=== PATIENT | female | born 1960 | race Caucasian/White ===

== ENCOUNTER 2023-01-19 18:45 | Emergency (ER) | payer BC, SELFPAY ==
[2023-01-19] VITALS (20 sets, daily range): BP systolic 153–190; BP diastolic 82–98; PULSE 72–91; RESP 16–18; TEMP 36.4; O2SAT 94–98; BMI 32.9
--- NOTE | 2023-01-19 19:37 | ED_ITS ---
HPI - General Adult General Time Seen by Provider: 19:37 <Ronny Brock MD - Last Filed: 01/19/23 19:42> Date Seen: 01/19/23 <Ronny Brock MD - Last Filed: 01/19/23 19:42> Chief complaint: Flank Pain <Ronny Brock MD - Last Filed: 01/19/23 19:42> Stated complaint: Back/Side Pain <Ronny Brock MD - Last Filed: 01/19/23 19:42> Time Seen by Provider: 01/19/23 18:47 <Ronny Brock MD - Last Filed: 01/19/23 19:42> Source: patient <Ronny Brock MD - Last Filed: 01/19/23 19:42> Mode of arrival: ambulatory <Ronny Brock MD - Last Filed: 01/19/23 19:42> Limitations: no limitations <Ronny Brock MD - Last Filed: 01/19/23 19:42> History of Present Illness HPI narrative: Patient is a 62 year white female who about 6 months ago had a stent placed and externally in her right kidney and a stone removed. Prior to that she had a left-sided stone removed percutaneously. 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 She had a cardiac workup post COVID including a stress test less than 2 years ago that was unremarkable. She has had no swelling or clotting problems in her extremities, she does report she did have some significant problems with COVID. She has not had any fever chills or weight loss. She is concerned about recurrent kidney stone as she has right flank pain it has been present for a couple of weeks on and off and also now with this weakness and she describes some shortness of breath. She was treated for asthma in the past with inhalers but she was told by the product consultant to stop that. She has had a history of pneumonia as well. She presents to the ED on recommendation of primary care physician to get a CT scan of her abdomen. <Ronny Brock MD - Last Filed: 01/19/23 19:42> Related Data Home medications: Home Medications Medication Instructions Recorded Confirmed cetirizine 10 mg tablet 10 mg PO DAILY 05/28/22 05/28/22 cholecalciferol (vitamin D3) 50 2,000 unit PO DAILY 05/28/22 05/28/22 mcg (2,000 unit) tablet estradiol 0.01% (0.1 mg/gram) 1 vaginal DAILY 05/28/22 05/28/22 vaginal cream fluconazole 100 mg tablet 100 mg PO DAILY 05/28/22 05/28/22 fluticasone propionate 50 2 intranasal .Daily as needed PRN 05/28/22 05/28/22 mcg/actuation nasal spray,suspension lorazepam 1 mg tablet 0.5 mg PO PRN 05/28/22 05/28/22 <Ronny Brock MD - Last Filed: 01/19/23 19:42> Allergies/adverse reactions: Allergies Allergy/AdvReac Type Severity Reaction Status Date / Time atorvastatin Allergy Intermediate severe Verified 05/25/22 15:44 muscle spasms celecoxib Allergy Intermediate generalized Verified 05/25/22 15:44 swelling hydrocodone Allergy Intermediate stomach Verified 05/25/22 15:44 pain latex Allergy Intermediate severe Verified 05/25/22 15:44 swelling/pain in urethra when latex catheter used morphine Allergy Intermediate redness Verified 05/25/22 15:44 along vein lisinopril Allergy Mild severe Verified 05/25/22 15:44 headaches ezetimibe Allergy Unknown Verified 05/25/22 15:44 rosuvastatin AdvReac Unknown Verified 05/25/22 15:44 <Ronny Brock MD - Last Filed: 01/19/23 19:42> Review of Systems Status of ROS: Reports: 10 or more systems reviewed and unremarkable except as noted in History and below <Ronny Brock MD - Last Filed: 01/19/23 19:42> [facility] Medical History: Medical History Encounter for screening for severe acute respiratory syndrome coronavirus 2 (SARS-CoV-2) infection History of colonic polyps History of depression Migraine headache (05/05/06) <Ronny Brock MD - Last Filed: 01/19/23 19:42> Surgical History: Surgical History History of bladder repair surgery (2008) History of section History of cholecystectomy History of colonoscopy (12/01/15) History of hysterectomy with oophorectomy (03/25/08) History of total knee replacement (06/13/09) History of vein stripping S/P total hip arthroplasty (2015) Status post laser lithotripsy of ureteral calculus <Ronny Brock MD - Last Filed: 01/19/23 19:42> Family History: Family History Father Brain cancer Paternal Grandmother Breast cancer Sister Drug abuse Other Osteoarthritis <Ronny Brock MD - Last Filed: 01/19/23 19:42> Social History: Social History Narrative: exercise daily- takes care of horses (5), rides, gardens etc, very active , [employer], 4 kids non-smoker: quit 03/2017, 28 pack years social drinker- 6/month Smoking Status: Never smoker Do you use any of these nicotine containing products: None Second hand tobacco smoke exposure: No How often do you have a drink containing alcohol: monthly or less How many standard drinks containing alcohol do you have on a typical day: 1 or 2 How often do you have six or more drinks on one occasion: Never AUDIT-C Alcohol total score: 1 Non-prescribed substance use: denies use service: No <Ronny Brock MD - Last Filed: 01/19/23 19:42> Exam Narrative: Exam Narrative: Objective: Vital signs show slightly elevated blood pressure Patient is alert orient x3, no distress, no cyanosis HEENT is unremarkable Neck is supple Chest is clear Heart rhythm regular no murmur Abdomen obese benign nontender Flank exam shows no tenderness or abnormality Extremities are no edema Neurologic nonfocal upper extremities, good peripheral perfusion noted <Ronny Brock MD - Last Filed: 01/19/23 19:42> Const: Vital Signs, click to edit/add: Vital Signs - 24 hr 01/19/23 18:52 01/19/23 19:18 01/19/23 19:18 Temperature 97.5 F L Pulse Rate Pulse Rate [Pulse Oximeter] 80 83 Respiratory Rate 16 18 Blood Pressure Blood Pressure [Ri ght Upper Arm] 190/98 H 173/94 H Pulse Oximetry 94 95 94 Oxygen Delivery Me thod Room Air Room Air 01/19/23 19:31 01/19/23 19:32 01/19/23 19:45 Temperature Pulse Rate 83 83 76 Pulse Rate [Pulse Oximeter] Respiratory Rate 16 Blood Pressure 164/93 H Blood Pressure [Ri ght Upper Arm] Pulse Oximetry 96 95 98 Oxygen Delivery Me thod Room Air 01/19/23 20:05 01/19/23 20:15 01/19/23 20:30 Temperature Pulse Rate 82 75 74 Pulse Rate [Pulse Oximeter] Respiratory Rate Blood Pressure Blood Pressure [Ri ght Upper Arm] Pulse Oximetry 96 95 97 Oxygen Delivery Me thod 01/19/23 20:32 01/19/23 20:33 01/19/23 20:57 Temperature Pulse Rate 73 72 91 Pulse Rate [Pulse Oximeter] Respiratory Rate Blood Pressure 153/82 H Blood Pressure [Ri ght Upper Arm] Pulse Oximetry 96 96 96 Oxygen Delivery Me thod 01/19/23 21:00 01/19/23 21:02 01/19/23 21:15 Temperature Pulse Rate 85 86 87 Pulse Rate [Pulse Oximeter] Respiratory Rate Blood Pressure 188/89 H Blood Pressure [Ri ght Upper Arm] Pulse Oximetry 95 96 97 Oxygen Delivery Me thod 01/19/23 21:30 01/19/23 21:32 01/19/23 21:33 Temperature Pulse Rate 81 78 81 Pulse Rate [Pulse Oximeter] Respiratory Rate Blood Pressure 168/84 H Blood Pressure [Ri ght Upper Arm] Pulse Oximetry 95 95 94 Oxygen Delivery Me thod 01/19/23 21:45 01/19/23 22:00 01/19/23 22:02 Temperature Pulse Rate 80 75 76 Pulse Rate [Pulse Oximeter] Respiratory Rate Blood Pressure 168/89 H Blood Pressure [Ri ght Upper Arm] Pulse Oximetry 97 96 95 Oxygen Delivery Me thod <Ronny Brock MD - Last Filed: 01/19/23 19:42> Vital Signs, click to edit/add: Vital Signs - 24 hr 01/19/23 18:52 01/19/23 19:18 01/19/23 19:18 Temperature 97.5 F L Pulse Rate Pulse Rate [Pulse Oximeter] 80 83 Respiratory Rate 16 18 Blood Pressure Blood Pressure [Ri ght Upper Arm] 190/98 H 173/94 H Pulse Oximetry 94 95 94 Oxygen Delivery Me thod Room Air Room Air 01/19/23 19:31 01/19/23 19:32 01/19/23 19:45 Temperature Pulse Rate 83 83 76 Pulse Rate [Pulse Oximeter] Respiratory Rate 16 Blood Pressure 164/93 H Blood Pressure [Ri ght Upper Arm] Pulse Oximetry 96 95 98 Oxygen Delivery Me thod Room Air 01/19/23 20:05 01/19/23 20:15 01/19/23 20:30 Temperature Pulse Rate 82 75 74 Pulse Rate [Pulse Oximeter] Respiratory Rate Blood Pressure Blood Pressure [Ri ght Upper Arm] Pulse Oximetry 96 95 97 Oxygen Delivery Me thod 01/19/23 20:32 01/19/23 20:33 01/19/23 20:57 Temperature Pulse Rate 73 72 91 Pulse Rate [Pulse Oximeter] Respiratory Rate Blood Pressure 153/82 H Blood Pressure [Ri ght Upper Arm] Pulse Oximetry 96 96 96 Oxygen Delivery Me thod 01/19/23 21:00 01/19/23 21:02 01/19/23 21:15 Temperature Pulse Rate 85 86 87 Pulse Rate [Pulse Oximeter] Respiratory Rate Blood Pressure 188/89 H Blood Pressure [Ri ght Upper Arm] Pulse Oximetry 95 96 97 Oxygen Delivery Me thod 01/19/23 21:30 01/19/23 21:32 01/19/23 21:33 Temperature Pulse Rate 81 78 81 Pulse Rate [Pulse Oximeter] Respiratory Rate Blood Pressure 168/84 H Blood Pressure [Ri ght Upper Arm] Pulse Oximetry 95 95 94 Oxygen Delivery Me thod 01/19/23 21:45 01/19/23 22:00 01/19/23 22:02 Temperature Pulse Rate 80 75 76 Pulse Rate [Pulse Oximeter] Respiratory Rate Blood Pressure 168/89 H Blood Pressure [Ri ght Upper Arm] Pulse Oximetry 97 96 95 Oxygen Delivery Me thod <Jarrod Hamilton MD - Last Filed: 01/19/23 23:29> Course Course Hospital Course: Second EKG and 2nd troponin are normal, her chest CT and abdominal CT not show any acute findings, I am reassured by absence of pulmonary embolism, and normal of vital signs, with exception of her elevated blood pressure which we discussed she should follow-up for. I do think she needs to follow up with her primary care provider after discussing with her she has not had a stress echo she had a pure echo done in the past. She would require a stress echo if for shortness of breath the make evaluation complete. She agrees with the small follow-up within 48-72 hours return here if increasing chest pain shortness of breath. I gave her copy of her CTs, that she can give to her urologist Dr. Yeung. <Ronny Brock MD - Last Filed: 01/19/23 19:42> Vital Signs Vital signs: Initial Vital Signs Temperature 97.5 F L 01/19/23 18:52 Temperature Source Temporal Artery Scan 01/19/23 18:52 Pulse Rate 80 01/19/23 18:52 Pulse Rhythm 01/19/23 18:52 Pulse Strength 3+ Normal 01/19/23 18:52 Respiratory Rate 16 01/19/23 18:52 Blood Pressure 190/98 H 01/19/23 18:52 Blood Pressure Mean 128 01/19/23 18:52 Blood Pressure Position Semi-Fowlers 01/19/23 18:52 Pulse Oximetry 94 01/19/23 18:52 Oxygen Delivery Method 01/19/23 18:52 Vital Signs Temperature 97.5 F L 01/19/23 18:52 Pulse Rate 80 01/19/23 18:52 Respiratory Rate 16 01/19/23 18:52 Blood Pressure 190/98 H 01/19/23 18:52 Pulse Oximetry 94 01/19/23 18:52 Oxygen Delivery Method 01/19/23 18:52 Temperature 97.5 F L 01/19/23 18:52 Pulse Rate 76 01/19/23 22:02 Respiratory Rate 16 01/19/23 19:31 Blood Pressure 168/89 H 01/19/23 22:02 Pulse Oximetry 95 01/19/23 22:02 Oxygen Delivery Method 01/19/23 19:31 <Ronny Brock MD - Last Filed: 01/19/23 19:42> Initial Vital Signs Temperature 97.5 F L 01/19/23 18:52 Temperature Source Temporal Artery Scan 01/19/23 18:52 Pulse Rate 80 01/19/23 18:52 Pulse Rhythm 01/19/23 18:52 Pulse Strength 3+ Normal 01/19/23 18:52 Respiratory Rate 16 01/19/23 18:52 Blood Pressure 190/98 H 01/19/23 18:52 Blood Pressure Mean 128 01/19/23 18:52 Blood Pressure Position Semi-Fowlers 01/19/23 18:52 Pulse Oximetry 94 01/19/23 18:52 Oxygen Delivery Method 01/19/23 18:52 Vital Signs Temperature 97.5 F L 01/19/23 18:52 Pulse Rate 80 01/19/23 18:52 Respiratory Rate 16 01/19/23 18:52 Blood Pressure 190/98 H 01/19/23 18:52 Pulse Oximetry 94 01/19/23 18:52 Oxygen Delivery Method 01/19/23 18:52 Temperature 97.5 F L 01/19/23 18:52 Pulse Rate 76 01/19/23 22:02 Respiratory Rate 16 01/19/23 19:31 Blood Pressure 168/89 H 01/19/23 22:02 Pulse Oximetry 95 01/19/23 22:02 Oxygen Delivery Method 01/19/23 19:31 <Jarrod Hamilton MD - Last Filed: 01/19/23 23:29> Medical Decision Making MDM Narrative Medical decision making narrative: Patient is a 62 year white female had a right percutaneous stone removal about 6 months ago, has had persistent discomfort in that area and today with weakness, some shortness of breath with exertion. She had a negative cardiac workup within the last 2 years by her report including a stress test. She has had hypertension that is basically untreated as she does not tolerate the medications she has been prescribed. She has had no fever chills or cough. At this point I think it be reasonable to rule out PE, rule out acute coronary syndrome, rule out intra-abdominal pathology such as recurrent stone. Will get a chest and abdominal CT scan. That she CT scan of the abdomen be without contrast. Will check laboratory studies, oral aspirin will be given as she tolerates this. IV fluid 500 mL disposition pending findings above. Would also check a COVID/influenza/RSV test. <Ronny Brock MD - Last Filed: 01/19/23 19:42> Medical Records Medical records reviewed: Yes I reviewed the patient's medical records <Jarrod Hamilton MD - Last Filed: 01/19/23 23:29> Lab Data Lab results reviewed: Yes I reviewed the patient's lab results <Jarrod Hamilton MD - Last Filed: 01/19/23 23:29> Labs: Lab Results 01/19/23 01/19/23 01/19/23 Range/Units 19:40 19:40 19:40 WBC 6.44 (4.50-11.00) K/uL RBC 4.42 (4.00-5.20) m/uL Hgb 12.5 (12.0-16.0) gm/dL Hct 37.9 (33.0-51.0) % MCV 86 (80-100) fL MCH 28 (26-34) pg MCHC 33 (32-36) gm/dL RDW Coeff of Steffi 13.5 (11.5-15.5) % Plt Count 250 (140-440) K/uL Neut % (Auto) 48.4 (42.0-72.0) % Lymph % (Auto) 38.0 (20-44) % Bennett % (Auto) 9.5 (0.0-11.0) % Eos % (Auto) 3.4 (0.0-7.0) % Baso % (Auto) 0.5 (0.0-3.0) % Neut # (Auto) 3.12 (1.7-7.0) K/uL Lymph # (Auto) 2.45 (0.90-2.90) K/uL Bennett # (Auto) 0.60 (0.00-0.90) K/UL Eos # (Auto) 0.22 (0.00-0.50) K/uL Baso # (Auto) 0.03 (0.00-0.30) K/uL Sodium 140 (135-149) mmol/L Potassium 3.4 L (3.6-5.1) mmol/L Chloride 107 (96-114) mmol/L Carbon Dioxide 29 (20-32) mmol/L BUN 21 (7-30) mg/dL Creatinine 0.7 (0.5-1.5) mg/dL Estimated Creat Clear 46.73 Estimated GFR 98 ml/min Glucose 108 (60-115) mg/dL Calcium 9.7 (8.4-10.6) mg/dL Total Bilirubin 0.4 (0.1-1.5) mg/dL Direct Bilirubin 0.1 (0.0-0.5) mg/dL AST 25 (12-35) U/L ALT 25 (4-35) U/L Alkaline Phosphatase 109 (40-150) U/L Troponin I < 0.01 L (0.01-0.04) ng/mL C-Reactive Protein 0.9 (0.5-1.0) mg/dL NT-Pro-B Natriuret Pep < 20 pg/mL Total Protein 7.0 (6.0-8.3) g/dL Albumin 4.1 (3.3-5.0) g/dL Amylase 72 (18-89) U/L Urine Color (Yellow) Urine Appearance (Clear) Urine pH (5.0-8.5) Ur Specific Burke (1.000-1.030) Urine Protein (Negative) Urine Glucose (UA) (Negative) Urine Ketones (Negative) Urine Blood (Negative) Urine Nitrite (Negative) Urine Bilirubin (Negative) Urine Urobilinogen (0.2-1.0) Ur Leukocyte Esterase (Negative) Urine RBC (0-2) Urine WBC (0-5) Ur Squamous Epith Cells (None-Few) Amorphous Sediment (None) Urine Bacteria (None) SARS-CoV-2 (PCR) Negative SARS-CoV-2 (Negative) Influenza Type A (PCR) Negative PCR FLU A (Negative) Influenza Type B (PCR) Negative PCR FLU B (Negative) RSV (PCR) Negative PCR RSV (Negative) POC Troponin I (0.01-0.04) ng/ml 01/19/23 01/19/23 01/19/23 Range/Units 19:40 20:00 21:47 WBC (4.50-11.00) K/uL RBC (4.00-5.20) m/uL Hgb (12.0-16.0) gm/dL Hct (33.0-51.0) % MCV (80-100) fL MCH (26-34) pg MCHC (32-36) gm/dL RDW Coeff of Steffi (11.5-15.5) % Plt Count (140-440) K/uL Neut % (Auto) (42.0-72.0) % Lymph % (Auto) (20-44) % Bennett % (Auto) (0.0-11.0) % Eos % (Auto) (0.0-7.0) % Baso % (Auto) (0.0-3.0) % Neut # (Auto) (1.7-7.0) K/uL Lymph # (Auto) (0.90-2.90) K/uL Bennett # (Auto) (0.00-0.90) K/UL Eos # (Auto) (0.00-0.50) K/uL Baso # (Auto) (0.00-0.30) K/uL Sodium (135-149) mmol/L Potassium (3.6-5.1) mmol/L Chloride (96-114) mmol/L Carbon Dioxide (20-32) mmol/L BUN (7-30) mg/dL Creatinine (0.5-1.5) mg/dL Estimated Creat Clear Estimated GFR ml/min Glucose (60-115) mg/dL Calcium (8.4-10.6) mg/dL Total Bilirubin (0.1-1.5) mg/dL Direct Bilirubin (0.0-0.5) mg/dL AST (12-35) U/L ALT (4-35) U/L Alkaline Phosphatase (40-150) U/L Troponin I Cancelled (0.01-0.04) ng/mL C-Reactive Protein (0.5-1.0) mg/dL NT-Pro-B Natriuret Pep pg/mL Total Protein (6.0-8.3) g/dL Albumin (3.3-5.0) g/dL Amylase (18-89) U/L Urine Color Yellow (Yellow) Urine Appearance Cloudy A (Clear) Urine pH 7.0 (5.0-8.5) Ur Specific Burke 1.020 (1.000-1.030) Urine Protein Negative (Negative) Urine Glucose (UA) Negative (Negative) Urine Ketones Negative (Negative) Urine Blood Trace-intact A (Negative) Urine Nitrite Negative (Negative) Urine Bilirubin Negative (Negative) Urine Urobilinogen 0.2 (0.2-1.0) Ur Leukocyte Esterase Trace A (Negative) Urine RBC 0-2 (0-2) Urine WBC 0-2 (0-5) Ur Squamous Epith Cells None (None-Few) Amorphous Sediment Moderate A (None) Urine Bacteria None (None) SARS-CoV-2 (PCR) (Negative) Influenza Type A (PCR) (Negative) Influenza Type B (PCR) (Negative) RSV (PCR) (Negative) POC Troponin I 0.00 L (0.01-0.04) ng/ml <Ronny Brock MD - Last Filed: 01/19/23 19:42> Lab Results 01/19/23 01/19/23 01/19/23 Range/Units 19:40 19:40 19:40 WBC 6.44 (4.50-11.00) K/uL RBC 4.42 (4.00-5.20) m/uL Hgb 12.5 (12.0-16.0) gm/dL Hct 37.9 (33.0-51.0) % MCV 86 (80-100) fL MCH 28 (26-34) pg MCHC 33 (32-36) gm/dL RDW Coeff of Steffi 13.5 (11.5-15.5) % Plt Count 250 (140-440) K/uL Neut % (Auto) 48.4 (42.0-72.0) % Lymph % (Auto) 38.0 (20-44) % Bennett % (Auto) 9.5 (0.0-11.0) % Eos % (Auto) 3.4 (0.0-7.0) % Baso % (Auto) 0.5 (0.0-3.0) % Neut # (Auto) 3.12 (1.7-7.0) K/uL Lymph # (Auto) 2.45 (0.90-2.90) K/uL Bennett # (Auto) 0.60 (0.00-0.90) K/UL Eos # (Auto) 0.22 (0.00-0.50) K/uL Baso # (Auto) 0.03 (0.00-0.30) K/uL Sodium 140 (135-149) mmol/L Potassium 3.4 L (3.6-5.1) mmol/L Chloride 107 (96-114) mmol/L Carbon Dioxide 29 (20-32) mmol/L BUN 21 (7-30) mg/dL Creatinine 0.7 (0.5-1.5) mg/dL Estimated Creat Clear 46.73 Estimated GFR 98 ml/min Glucose 108 (60-115) mg/dL Calcium 9.7 (8.4-10.6) mg/dL Total Bilirubin 0.4 (0.1-1.5) mg/dL Direct Bilirubin 0.1 (0.0-0.5) mg/dL AST 25 (12-35) U/L ALT 25 (4-35) U/L Alkaline Phosphatase 109 (40-150) U/L Troponin I < 0.01 L (0.01-0.04) ng/mL C-Reactive Protein 0.9 (0.5-1.0) mg/dL NT-Pro-B Natriuret Pep < 20 pg/mL Total Protein 7.0 (6.0-8.3) g/dL Albumin 4.1 (3.3-5.0) g/dL Amylase 72 (18-89) U/L Urine Color (Yellow) Urine Appearance (Clear) Urine pH (5.0-8.5) Ur Specific Burke (1.000-1.030) Urine Protein (Negative) Urine Glucose (UA) (Negative) Urine Ketones (Negative) Urine Blood (Negative) Urine Nitrite (Negative) Urine Bilirubin (Negative) Urine Urobilinogen (0.2-1.0) Ur Leukocyte Esterase (Negative) Urine RBC (0-2) Urine WBC (0-5) Ur Squamous Epith Cells (None-Few) Amorphous Sediment (None) Urine Bacteria (None) SARS-CoV-2 (PCR) Negative SARS-CoV-2 (Negative) Influenza Type A (PCR) Negative PCR FLU A (Negative) Influenza Type B (PCR) Negative PCR FLU B (Negative) RSV (PCR) Negative PCR RSV (Negative) POC Troponin I (0.01-0.04) ng/ml 01/19/23 01/19/23 01/19/23 Range/Units 19:40 20:00 21:47 WBC (4.50-11.00) K/uL RBC (4.00-5.20) m/uL Hgb (12.0-16.0) gm/dL Hct (33.0-51.0) % MCV (80-100) fL MCH (26-34) pg MCHC (32-36) gm/dL RDW Coeff of Steffi (11.5-15.5) % Plt Count (140-440) K/uL Neut % (Auto) (42.0-72.0) % Lymph % (Auto) (20-44) % Bennett % (Auto) (0.0-11.0) % Eos % (Auto) (0.0-7.0) % Baso % (Auto) (0.0-3.0) % Neut # (Auto) (1.7-7.0) K/uL Lymph # (Auto) (0.90-2.90) K/uL Bennett # (Auto) (0.00-0.90) K/UL Eos # (Auto) (0.00-0.50) K/uL Baso # (Auto) (0.00-0.30) K/uL Sodium (135-149) mmol/L Potassium (3.6-5.1) mmol/L Chloride (96-114) mmol/L Carbon Dioxide (20-32) mmol/L BUN (7-30) mg/dL Creatinine (0.5-1.5) mg/dL Estimated Creat Clear Estimated GFR ml/min Glucose (60-115) mg/dL Calcium (8.4-10.6) mg/dL Total Bilirubin (0.1-1.5) mg/dL Direct Bilirubin (0.0-0.5) mg/dL AST (12-35) U/L ALT (4-35) U/L Alkaline Phosphatase (40-150) U/L Troponin I Cancelled (0.01-0.04) ng/mL C-Reactive Protein (0.5-1.0) mg/dL NT-Pro-B Natriuret Pep pg/mL Total Protein (6.0-8.3) g/dL Albumin (3.3-5.0) g/dL Amylase (18-89) U/L Urine Color Yellow (Yellow) Urine Appearance Cloudy A (Clear) Urine pH 7.0 (5.0-8.5) Ur Specific Burke 1.020 (1.000-1.030) Urine Protein Negative (Negative) Urine Glucose (UA) Negative (Negative) Urine Ketones Negative (Negative) Urine Blood Trace-intact A (Negative) Urine Nitrite Negative (Negative) Urine Bilirubin Negative (Negative) Urine Urobilinogen 0.2 (0.2-1.0) Ur Leukocyte Esterase Trace A (Negative) Urine RBC 0-2 (0-2) Urine WBC 0-2 (0-5) Ur Squamous Epith Cells None (None-Few) Amorphous Sediment Moderate A (None) Urine Bacteria None (None) SARS-CoV-2 (PCR) (Negative) Influenza Type A (PCR) (Negative) Influenza Type B (PCR) (Negative) RSV (PCR) (Negative) POC Troponin I 0.00 L (0.01-0.04) ng/ml <Jarrod Hamilton MD - Last Filed: 01/19/23 23:29> Imaging Data CT scan - abdomen: Radiologist's impression: atient: MICA MULLINSMARTYDARRYL Facility:?[facility] Patient ID:?[id number] Site Patient ID:?[id number]. Site :?[id number] Study:?CT Chest W/95CC [id number] PE PROTOCOL-01/19/2023 9:05:45 PM Ordering Physician:Samanta Jefferson Final Report: INDICATION: Shortness of breath TECHNIQUE: CT chest pulmonary PE protocol acquired with 95 cc Isovue 370 IV contrast. COMPARISON: None FINDINGS: Cardiovascular structures: Normal vascular enhancement of the pulmonary arteries, no sign of pulmonary embolism. Heart size is normal. No sign of aneurysm in the thoracic aorta. Mediastinum and micki: No mass or adenopathy. Lungs: Linear atelectasis or scarring in the lingula, right middle lobe, and left lower lobe. Pleura and pericardium: No effusions. Chest wall and axilla: No mass or adenopathy. Upper abdomen: Unremarkable. Bones: No significant findings. IMPRESSION: Pulmonary embolism, pneumonia, or acute intrathoracic abnormality. Please note that all CT scans at this facility use dose modulation, iterative reconstruction, and/or weight-based dosing when appropriate to reduce radiation dose to as low as reasonably achievable. Dictated by Mabel Galindo MD @ 01/19/2023 9:35:12 PM (Electronic Signature) Patient: MICA MULLINSJOHANA Facility:?[facility] Patient ID:?[id number] Site Patient ID:?[id number]. Site :?[id number] Study:?CT Abdomen/Pelvis W/O-01/19/2023 9:04:10 PM Ordering Physician:Samanta Jefferson Final Report: INDICATION: Kidney stones. TECHNIQUE: CT abdomen and pelvis without contrast. COMPARISON: None. FINDINGS: Limited evaluation of the intra-abdominal solid organs without IV contrast. Lower chest: Unremarkable. Liver: Normal in size and attenuation. No suspicious masses. Gallbladder and bile ducts: Gallbladder is absent. No intra or extrahepatic biliary ductal dilatation. Pancreas: Unremarkable. No mass or inflammation. Spleen: Normal in size. No masses. Adrenal glands: Normal in size. No nodules. Kidneys: Normal in size. No suspicious masses, stones, or hydronephrosis. GI tract: Unremarkable. Normal in caliber. No sign of mass or inflammation. Normal appendix. Vasculature: Abdominal aorta is normal in caliber. Lymph nodes: No lymphadenopathy. Peritoneum/Abdominal Wall: Unremarkable. No sign of mass or infiltration. No free air or significant free fluid. Pelvis: Streak artifact from arthroplasties limits evaluation in the pelvis. Probable prior hysterectomy. Bones: Bilateral total hip arthroplasty changes. IMPRESSION: No renal stones identified. Status post cholecystectomy. Please note that all CT scans at this facility use dose modulation, iterative reconstruction, and/or weight-based dosing when appropriate to reduce radiation dose to as low as reasonably achievable. Dictated by Selam Rogers MD @ 01/19/2023 9:32:04 PM (Electronic Signature) <Jarrod Hamilton MD - Last Filed: 01/19/23 23:29> ECG Data Attestation: I personally reviewed and interpreted this ECG as follows: <Jarrod Hamilton MD - Last Filed: 01/19/23 23:29> Interpretation: EKGs and show normal sinus rhythm, with an incomplete right bundle-branch block no acute ST wave changes, when compared to previous CKD as reviewed by Dr. Brock there is no appreciable change. <Jarrod Hamilton MD - Last Filed: 01/19/23 23:29> Discharge Plan Discharge Clinical Impression: Chronic right flank pain, Weakness, Shortness of breath <Ronny Brock MD - Last Filed: 01/19/23 19:42> Patient Disposition: Home w/ Parent or Adult <Ronny Brock MD - Last Filed: 01/19/23 19:42> Condition: Improved <Ronny Brock MD - Last Filed: 01/19/23 19:42> Instructions: Flank Pain (ED), Shortness of Breath (ED) <Ronny Brock MD - Last Filed: 01/19/23 19:42> Additional Instructions: Rest, light activity, aspirin daily, follow up with primary care in the next 2-3 days. Return to ED sooner problems or concerns. Recommend repeat talking about blood pressure control with her primary care doctor common finding a medication that would be more tolerant to you. Also recommend outpatient stress test, to further assess this shortness of breath. Return here if increasing shortness of breath chest pain or other issues. <Ronny Brock MD - Last Filed: 01/19/23 19:42> Activity Level: Light activity <Ronny Brock MD - Last Filed: 01/19/23 19:42> Light activity <Jarrod Hamilton MD - Last Filed: 01/19/23 23:29> Discharge Diet: Heart Healthy (2 gm sodium, low fat) <Ronny Brock MD - Last Filed: 01/19/23 19:42> Heart Healthy (2 gm sodium, low fat) <Jarrod Hamilton MD - Last Filed: 01/19/23 23:29> Prescriptions: No Action cholecalciferol (vitamin D3) 50 mcg (2,000 unit) tablet 2,000 unit PO DAILY fluticasone propionate 50 mcg/actuation spray,suspension 2 intranasal .Daily as needed PRN estradiol 0.01 % (0.1 mg/gram) cream 1 vaginal DAILY lorazepam 1 mg tablet 0.5 mg PO PRN cetirizine 10 mg tablet 10 mg PO DAILY fluconazole 100 mg tablet 100 mg PO DAILY <Ronny Brock MD - Last Filed: 01/19/23 19:42> Stand Alone Forms: [employer] Info Instructions <Ronny Brock MD - Last Filed: 01/19/23 19:42>
--- NOTE | 2023-01-19 19:43 | CRLHL7_ITS ---
For Patients: As a result of the Century Cures Act, medical imaging exams and procedure reports are released immediately into your electronic medical record. You may view this report before your referring provider. If you have questions, please contact your health care provider. INDICATION: Kidney stones. TECHNIQUE: CT abdomen and pelvis without contrast. COMPARISON: None. FINDINGS: Limited evaluation of the intra-abdominal solid organs without IV contrast. Lower chest: Unremarkable. Liver: Normal in size and attenuation. No suspicious masses. Gallbladder and bile ducts: Gallbladder is absent. No intra or extrahepatic biliary ductal dilatation. Pancreas: Unremarkable. No mass or inflammation. Spleen: Normal in size. No masses. Adrenal glands: Normal in size. No nodules. Kidneys: Normal in size. No suspicious masses, stones, or hydronephrosis. GI tract: Unremarkable. Normal in caliber. No sign of mass or inflammation. Normal appendix. Vasculature: Abdominal aorta is normal in caliber. Lymph nodes: No lymphadenopathy. Peritoneum/Abdominal Wall: Unremarkable. No sign of mass or infiltration. No free air or significant free fluid. Pelvis: Streak artifact from arthroplasties limits evaluation in the pelvis. Probable prior hysterectomy. Bones: Bilateral total hip arthroplasty changes. IMPRESSION: No renal stones identified. Status post cholecystectomy. Please note that all CT scans at this facility use dose modulation, iterative reconstruction, and/or weight-based dosing when appropriate to reduce radiation dose to as low as reasonably achievable. Dictated by Selam Rogers MD @ 01/19/2023 9:32:04 PM (Electronically Signed)
--- NOTE | 2023-01-19 19:43 | CRLHL7_ITS ---
For Patients: As a result of the Century Cures Act, medical imaging exams and procedure reports are released immediately into your electronic medical record. You may view this report before your referring provider. If you have questions, please contact your health care provider. INDICATION: Shortness of breath TECHNIQUE: CT chest pulmonary PE protocol acquired with 95 cc Isovue 370 IV contrast. COMPARISON: None FINDINGS: Cardiovascular structures: Normal vascular enhancement of the pulmonary arteries, no sign of pulmonary embolism. Heart size is normal. No sign of aneurysm in the thoracic aorta. Mediastinum and micki: No mass or adenopathy. Lungs: Linear atelectasis or scarring in the lingula, right middle lobe, and left lower lobe. Pleura and pericardium: No effusions. Chest wall and axilla: No mass or adenopathy. Upper abdomen: Unremarkable. Bones: No significant findings. IMPRESSION: Pulmonary embolism, pneumonia, or acute intrathoracic abnormality. Please note that all CT scans at this facility use dose modulation, iterative reconstruction, and/or weight-based dosing when appropriate to reduce radiation dose to as low as reasonably achievable. Dictated by Mabel Galindo MD @ 01/19/2023 9:35:12 PM (Electronically Signed)
[2023-01-19] MEDS: ASPIRIN 81 MG TAB.CHEW 324 MG PO (19:45)
[2023-01-19] MEDS: 0.9 % SODIUM CHLORIDE 500 ML 500 ML IV (19:51)
[2023-01-19 19:59] LABS: Basophils Absolute Auto 0.03 K/uL (0.00-0.30); Basophils Percent Auto 0.5 % (0.0-3.0); Eosinophils Absolute Auto 0.22 K/uL (0.00-0.50); Eosinophils Percent Auto 3.4 % (0.0-7.0); Hematocrit 37.9 % (33.0-51.0); Hemoglobin* 12.5 gm/dL (12.0-16.0); Immature Granulocytes Abs Auto 0.01 K/uL (0.00-0.30); Immature Granulocytes Pct Auto 0.2 %; Lymphocytes Absolute Auto 2.45 K/uL (0.90-2.90); Mean Corpuscular HGB Conc 33 gm/dL (32-36); Mean Corpuscular Hemoglobin 28 pg (26-34); Mean Corpuscular Volume 86 fL (80-100); Monocytes Percent Auto 9.5 % (0.0-11.0); Neutrophils Absolute Auto 3.12 K/uL (1.7-7.0); Neutrophils Percent Auto 48.4 % (42.0-72.0); Platelet Count* 250 K/uL (140-440); RDW Coefficient of Variation % 13.5 % (11.5-15.5); Red Blood Count 4.42 m/uL (4.00-5.20); White Blood Count* 6.44 K/uL (4.50-11.00)
[2023-01-19 20:00] LABS: Slide Review Reflex No
[2023-01-19 20:06] LABS: Appearance Urine Cloudy (Clear); Bilirubin Urine Negative (Negative); Blood Urine Trace-intact (Negative); Color Urine Yellow (Yellow); Glucose Urine Negative (Negative); Ketones Urine Negative (Negative); Leukocyte Esterase Urine Trace (Negative); Nitrite Urine Negative (Negative); Protein Urine Negative (Negative); Urobilinogen Urine 0.2 (0.2-1.0)
[2023-01-19 20:19] LABS: Albumin* 4.1 g/dL (3.3-5.0); Chloride* 107 mmol/L (96-114)
[2023-01-19 20:20] LABS: Potassium* 3.4 mmol/L (3.6-5.1); Sodium* 140 mmol/L (135-149)
[2023-01-19 20:22] LABS: Amylase* 72 U/L (18-89); Aspartate Amino Transferase* 25 U/L (12-35); Bilirubin Direct* 0.1 mg/dL (0.0-0.5); Bilirubin Total* 0.4 mg/dL (0.1-1.5); Blood Urea Nitrogen* 21 mg/dL (7-30); Carbon Dioxide* 29 mmol/L (20-32); Creatinine* 0.7 mg/dL (0.5-1.5); Est. Creatinine Clearance* 46.73; Estimated Glomerular Filt Rate 98 ml/min
[2023-01-19 20:23] LABS: Alanine Aminotransferase* 25 U/L (4-35); Alkaline Phosphatase* 109 U/L (40-150); Calcium* 9.7 mg/dL (8.4-10.6); Glucose* 108 mg/dL (60-115)
[2023-01-19 20:24] LABS: Amorphous Sediment Urine Moderate; RBC Urine 0-2 (0-2); WBC Urine 0-2 (0-5)
[2023-01-19 20:25] LABS: C Reactive Protein* 0.9 mg/dL (0.5-1.0)
[2023-01-19 20:34] LABS: NT Pro B Type NatriureticPept* < 20 pg/mL; Troponin I* < 0.01 ng/mL (0.01-0.04)
[2023-01-19 20:44] LABS: PCR FLU A Negative PCR FLU A (Negative); PCR FLU B Negative PCR FLU B (Negative); PCR RSV Negative PCR RSV (Negative)
[2023-01-19 21:39] LABS: SARS PCR* Negative SARS-CoV-2 (Negative)
== END 2023-01-19 22:21 | disposition home or self-care (01) ==
PROVIDERS: Family Medicine; Emergency Provider Family Medicine
DX: R10.9 Unspecified abdominal pain (principal); R53.1 Weakness; R06.02 Shortness of breath
CPT/HCPCS: 36415; 71260; 74176; 80048; 80076; 81001; 82150; 83880; 84484; 85025; 86140; 87086; 87502; 87634; 87635; 93005; 99284; 99285; A9270; J7120; Q9967

== ENCOUNTER 2023-11-29 09:37 | Outpatient (RCR) | payer BC, SELFPAY | END 2024-03-28 23:59 | disposition home or self-care (01) | PROVIDERS: Visit Provider Orthopaedic Surgery | DX: M17.11 Unilateral primary osteoarthritis, right knee (principal); M25.561 Pain in right knee; Z74.09 Other reduced mobility; R26.89 Other abnormalities of gait and mobility; Z51.89 Encounter for other specified aftercare | CPT/HCPCS: 97161 ==

== ENCOUNTER 2023-12-08 10:26 | Day surgery (SDC) | payer BC, SELFPAY ==
[2023-12-08] VITALS (24 sets, daily range): BP systolic 122–172; BP diastolic 68–109; PULSE 61–87; RESP 10–18; TEMP 36.3–37.2; O2SAT 90–99; BMI 30.9
--- OUTSIDE RECORDS SUMMARY | 2023-12-08 10:30 | XMS_ITS | Clinical Summary ---
Author Name Unknown Organization [facility] Address [place], [place] [address] Care Team Providers Care Director Of Food And Nutrition Name Role Phone Leonie Orr DO Primary Care Provider [phone] Jean Chang MD Unavailable Dg Garza Unavailable Allergies Active Allergy Reactions Criticality Noted Date Comments Atorvastatin Myalgia Medium 05/24/2019 Celecoxib Edema 12/25/2015 Latex Itching 07/03/2008 Urethra swelled with hays catheter. Rash around mouth from latex gloves at dentist 20 years ago. Lisinopril Headache Low 05/24/2019 Morphine Itching Medications Medication Sig Dispensed Refills Start Date End Date Status ibuprofen (ADVIL; MOTRIN) 200 mg tablet Take 800 mg by mouth every 6 hours if needed. 0 Active acetaminophen (TYLENOL) 325 mg tabletIndications: Kidney stone Take 1-2 Tablets (325-650 mg) by mouth every 4 hours if needed for Pain (For mild pain.). Max acetaminophen dose: 4000mg in 24 hrs. 30 Tablet 0 07/23/2022 Active triamcinolone (ARISTOCORT; KENALOG) 0.1 % creamIndications:D ermatitis Apply topically to affected area(s) two times daily. 80 g 0 11/29/2023 Active Active Problems Problem Noted Date Diagnosed Date HTN (hypertension) 09/21/2022 Vitamin D deficiency 07/12/2022 Statin intolerance 07/12/2022 Situational anxiety 07/12/2022 S/P total hip arthroplasty 07/12/2022 Osteopenia 07/12/2022 Osteoarthritis, multiple sites 07/12/2022 Obesity (BMI 30.0-34.9) 07/12/2022 Moderate persistent asthma 07/12/2022 Hx of bladder repair surgery 07/12/2022 History of vein stripping 07/12/2022 History of cholecystectomy 07/12/2022 History of section 07/12/2022 Carotid stenosis 07/12/2022 Trigger thumb of left hand 07/17/2021 Left carpal tunnel syndrome 07/17/2021 Prednisone adverse reaction 03/11/2015 Overview: Kia, agitation Hyperplastic colon polyp 04/18/2014 Overview: Routine colonoscopy 2007 Lichen simplex chronicus 01/02/2010 Adjustment disorder with mixed anxiety and depre ssed mood 07/17/2009 Hx of total knee arthroplasty 06/13/2009 Symptomatic menopausal or female climacteric sta lamin 09/23/2008 Mixed hyperlipidemia 09/11/2007 Overview: Prior to 2004 tried atorvastatin: Good control of symptoms, terrible myalgias 2005: Tried Zocor with mild response in cholesterol, but onset of myalgias 2006: Zetia and fish oil -myalgias 2008: Pravastatin 80 mg -1 dose led to myalgias Oct 2008: Tried red rice yeast, niacin, fish oil with no improvement in cholesterol Nov 2009: Pravastatin 10 mg -unsure why discontinued January 2011: Tried fenofibrate, but patient stopped using 2016: Tried atorvastatin again with onset of myalgias 2018: Zetia with return of muscle pain and no response to cholesterol. 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 So Levi total knee ) 11/29/2023 Travel 11/23/2023 Nurse Triage [facility] [address] [place] [address] Kirby Leonie Belle, DO Rash 11/23/2023 Telephone [facility] [address] [place] [address] Sir Orri Belle, DO Referral (PHYSICAL THERAPY ) 11/23/2023 Telephone [facility] [address] [place] [address] Sir Orri Belle, DO Referral (DERM REFERRAL/TAREEN DERMATOLOGY) from Last 3 Months Immunizations Name Administration Dates Next Due DTaP 04/29/2008 Influenza A (H1N1), Inactivated 10/10/2009 Influenza A (H1N1), Inactiva shantal (Age >=3 Years) 10/10/2009 Influenza Virus, Unspecified 09/11/2007,09/24/20 05 Influenza, IIV3 (Age >=3 years) 11/27/19 13,11/19/2011,12/18/2010,2006,09/24/2005 Influenza, IIV4 08/23/2018,11/01/2017,10/10/2009 Pneumococcal Poly,23-Valent (Pneumovax) 05/24/2019 Td (Age >=7 Years) 11/01/2017,09/24/2005 Td, Preservative Free (age > = 7 Years) 11/01/2017,09/24/2005 Tdap 04/29/2008 Tuberculin (PPD) 07/03/2008 Family History Medical History Relation Name Comments Cancer Father Brain tumor Good Health Mother Cancer-breast Paternal Grandmother Relation Name Status Comments Brother 1 Stillborn Brother 2 MVA Father Mother Alive Paternal Grandmother Social History Tobacco Use Types Packs/Day Years Used Date Smoking Tobacco: Former Cigarettes 0.3 36.1 1 980 - 12/25/2015 Smokeless Tobacco: Never Tobacco Cessation:Counseling Given: Yes Alcohol Use Standard Drinks/Week Comments Not Currently 0 (1 standard drink = 0.6 oz pur e alcohol) very rare PHQ-2 Answer Date Recorded PHQ-2 TOTAL SCORE 0 11/17/2020 Social Connections Answer Date Recorded Frequency of Communication with Friends and Fami ly Not on file 11/28/2023 Financial Resource Strain Answer Date R ecorded Difficulty of Paying Living Expenses 3 11/23/2022 Difficulty of Paying Living Expenses Not on file 11/23/2022 Food Insecurity Answer Date Recorded Worried About Running Out of Food in the Last Ye ar 1 11/23/2022 Transportation Needs Answer Date Record ed Lack of Transportation (Medical) 1 11/23/2022 Housing Stability Answer Date Recorded Unable to Pay for Housing in the Last Year 1 11/23/2022 Sex and Gender Information Value Date Recorded Sex Assigned at Not on file Gender Identity Not on file Sexual Orientation Not on file Obstetrics History Para Term AB IAB SAB Ectopic Multiple Livin g Live Births 5 5 5 0 0 0 0 0 5 Date Outcome GA Total Labor Labor/2nd/3rd Weight Sex Delivery Anes PTL Belle A1 A5 Name Cl in Term Term Term Term Term Comments 3 vaginal deliveries and 2 C -section deliveries Last Filed Vital Signs Vital Sign Reading Time Taken Comments Blood Pressure 138/78 11/29/2023 9:11 AM RAIL SIGNAL DESIGNER Pulse 66 11/29/2023 8:37 AM RAIL SIGNAL DESIGNER Temperature 36.6 ??C (97.8 ??F) 05/01/2023 9:52 AM CD T Respiratory Rate 18 05/01/2023 9:52 AM CDT Oxygen Saturation 98% 11/29/2023 8:37 AM RAIL SIGNAL DESIGNER Inhaled Oxygen Concentration - - Weight 76.6 kg (168 lb 14.4 oz) 11/29/2023 8:37 AM RAIL SIGNAL DESIGNER Height 158.8 cm (5' 2.5) 02/14/2023 7:32 AM CDT Body Mass Index 30.4 02/14/2023 7:32 AM CDT Plan of Treatment Health Maintenance Due Date Last Done Comments COVID-19 vaccine series (#1) 01/30/1962 Zoster (shingles) series for age 50+ (1 of 2) 2011 Mammogram for age 45-75 04/25/2015 04/25/20 14, 09/13/2011, 10/03/2007 Pneumococcal series for age 6-64 (2 of 2 - PCV) 05/24/2020 05/24/2019 Depression screening for age 12+ 11/17/2021 11/17/19 21, 12/25/2015 Influenza for age 50-64 07/15/2023 08/23/20 18, 11/01/2017, 11/27/2012, Additional history exists BMI (ht and wt on same day) for age 18+ 02/15/2024 02/14/2023, 02/26/2022, 12/23/2021, Additional history exists Colonoscopy through age 75 12/01/202512/01, 12/01/2015, 01/05/2011, Additional history exists Tetanus booster 11/01/2027 11/01/2017, 10/14, 04/29/2008, Additional history exists Lipids for age 45-75 11/29/2028 11/29/2023, 06/08/2023, 11/22/2022, Additional history exists Tdap Completed 04/29/2008 HIV for age 15-65 Completed 08/26/2011 Hepatitis C screening for ag e 18-79 Completed 08/26/2011 Procedures Procedure Name Priority Date/Time Associated Diagnosis Comments HEMOGLOBIN Routine 11/29/2023 9:28 AM RAIL SIGNAL DESIGNER Pre-op exam LIPID PANEL W REFLEX MEASURED LDL Routine 11/29/2023 9:28 AM RAIL SIGNAL DESIGNER Mixed hyperlipidemia from Last 3 Months Results * (ABNORMAL) LIPID PANEL W REFLEX MEASURED LDL (11/29/2023 9:28 AM RAIL SIGNAL DESIGNER) CHOLESTEROL,TOTAL 247(H) 100 - 199 mg/dL 11/29/2023 5:31 PM RAIL SIGNAL DESIGNER [facility] Comment: Cholesterol, Total Reference Ranges Desirable <200 mg/dL Borderline 200-239 mg/dL High >=240 mg/dL TRIGLYCERIDES 179(H) <150 mg/dL 11/29/2023 5:31 PM RAIL SIGNAL DESIGNER [facility] HDL CHOLESTEROL 57 >40 mg/dL 01/16/202 4 5:31 PM RAIL SIGNAL DESIGNER [facility] NON-HDL CHOLESTEROL 190(H) <145 mg/dl 11/29/2023 5:31 PM RAIL SIGNAL DESIGNER [facility] CHOL/HDL RATIO 4.33 <4.50 11/29/2023 5:31 PM RAIL SIGNAL DESIGNER [facility] LDL CHOLESTEROL 154(H) <=130 mg/dL 11/29/2023 5:31 PM RAIL SIGNAL DESIGNER [facility] VLDL CHOLESTEROL 36(H) <=30 mg/dL 11/29/2023 5:31 PM RAIL SIGNAL DESIGNER [facility] PROVIDER ORDERED STATUS RANDOM 11/29/2023 5:31 PM RAIL SIGNAL DESIGNER [facility] Blood BLOOD SPECIMEN / Unknown Venipuncture / Unknown 11/29/2023 9:28 AM RAIL SIGNAL DESIGNER 11/29/2023 9:29 AM RAIL SIGNAL DESIGNER [facility]ie [employer] [facility] [address] [place] [address], * HEMOGLOBIN (11/29/2023 9:28 AM RAIL SIGNAL DESIGNER) HEMOGLOBIN 13.8 12.0 - 16.0 g/dL 11/29/2023 9:32 AM RAIL SIGNAL DESIGNER [facility] MCV 86 80 - 100 fL 11/29/2023 9:32 AM RAIL SIGNAL DESIGNER [facility] Blood BLOOD SPECIMEN / Unknown Venipuncture / Unknown 11/29/2023 9:28 AM RAIL SIGNAL DESIGNER 11/29/2023 9:29 AM RAIL SIGNAL DESIGNER [employer] H[facility]AT[facility] [address] [place] [address], from Last 3 Months Advance Directives Latest Code Status on File Code Status Date Activated Date Inactivated Comments Full Code 07/21/2022 6:53 AM 07/24/2022 5:32 PM Question Answer Comments Code Status Discussion: Not Discussed Code Status History Code Status Date Activated Date Inactivated Comments Full Code 09/02/2008 5:17 AM 09/02/2008 1:33 PM Care Teams Director Of Food And Nutrition Relationship Specialty Start Date End Date Leonei Orr DO [address] [place] [address] PCP - General Internal Medicine 12/02/20 Jean Chang MD [address] [place] [address] Provider Surgery - Urology 11/30/[address] [place] [address] [place] 12/16/22
--- OUTSIDE RECORDS SUMMARY | 2023-12-08 10:31 | XMS_ITS | Data Portability ---
Author Name Unknown Address [address] [place] [address] Phone [phone] Organization [facility], [facility] Address [address] [facility] [address] [place] [address] Care Team Providers Care Wire Rope Sales Representative Name Role Phone ALBERTO WYNN Primary Care Provider Assessment No assessment recorded. Plan of Treatment Reminders Order Date Submit Date Provider Last Modified By Organization Details Last Modified Time Details Appointments None recorded. Lab urinalysis , dipstick 2022 023 [email or web address] [facility], [address], [place], [address], 3 10:36:50 Referral None recorded. Procedures None recorded. Surgeries None recorded. Imaging None recorded. Medication Orders None recorded. Patient TargetsNo targets recorded. Patient Instructions Encounter Date Encounter Id Patient Instructions Last Modified By Organization Details Last Modified Time 02/28/[id number] recent [address] report and call if anything concerning. [email or web address] Not available 02/28/2023 10:48:41 10/04/2022 [id number] willp plan rtc 1 year for KUB. stone was 80% ca/oxalate and 20% ca/phosphate. [email or web address] Not available 10/04/2022 12:20:01 Reason for Referral None Reported. Results Created Date Observation Date Name Description Value Unit Range Abnormal Flag LastModifiedBy Organization Detail LastModifiedTime 02/29/20 23 02/28/2023 urina lysis , dipst ick Color-Status Yellow Not Available [facility] [address], [place], [address], 02/28/2023 10:35:56 02/29/20 23 02/28/2023 urina lysis , dipst ick Clarity-Stat us Clear Not Available [facility] [address], [place], [address], 02/28/2023 10:35:56 02/29/20 23 02/28/2023 urina lysis , dipst ick Glucose-Stat us Negati ve Not Available [facility] [address], [place], [address], 02/28/2023 10:35:56 02/29/20 23 02/28/2023 urina lysis , dipst ick Bilirubin-St atus Negati ve Not Available [facility] [address], [place], [address], 02/28/2023 10:35:56 02/29/20 23 02/28/2023 urina lysis , dipst ick Ketones-Stat us Negati ve Not Available [facility] [address], [place], [address], 02/28/2023 10:35:56 02/29/20 23 02/28/2023 urina lysis , dipst ick Sp Topton-Stat us >=1.03 0 Not Available [facility] [address], [place], [address], 02/28/2023 10:35:56 02/29/20 23 02/28/2023 urina lysis , dipst ick pH-Status 5.5 Not Available [facility] [address], [place], [address], 02/28/2023 10:35:56 02/29/20 23 02/28/2023 urina lysis , dipst ick Urobilinogen -Status 0.2 Not Available [facility] [address], [place], [address], 02/28/2023 10:35:56 02/29/20 23 02/28/2023 urina lysis , dipst ick Nitrates-Sta tus negati ve Not Available [facility] [address], [place], [address], 02/28/2023 10:35:56 02/29/20 23 02/28/2023 urina lysis , dipst ick Blood-Status Negati ve Not Available [facility] [address], [place], [address], 02/28/2023 10:35:56 02/29/20 23 02/28/2023 urina lysis , dipst ick Leuko-Status Negati ve Not Available [facility] [address], [place], [address], 02/28/2023 10:35:56 02/29/20 23 02/28/2023 urina lysis , dipst ick Specimen Type Voided Not Available [facility] [address], [place], [address], 02/28/2023 10:35:56 03/04/20 22 03/03/2022 XR, urogr am, retro grade No observ ation record ed. Not Available 2022 10:01:43 07/23/20 22 07/22/2022 imagi ng/di agnos tic resul t No observ ation record ed. [email or web address] Not Available 07/23/2022 09:59:12 02/29/20 23 01/24/2023 US, abdom en, compl ete No observ ation record ed. [email or web address] Not Available 02/28/2023 09:54:41 02/29/20 23 01/19/2023 CT, abdom en + pelvi s, w/o contr ast No observ ation record ed. [email or web address] Not Available 02/28/2023 12:41:55 02/29/20 23 01/19/2023 CT, chest , w/ contr ast No observ ation record ed. [email or web address] Not Available 02/28/2023 12:41:55 Result Notes None recorded. Procedures Surgical History Date Name Laterality Status Provider Name and Address Organization Details Recorded Time 07/21/20 22 PERCUTANEOUS NEPHROLITHOTOMY (SURG) completed Gissel Karen null, [facility] 2022 10:01:43 03/03/20 22 CYSTOSCOPY, WITH URETEROSCOPY, WITH LITHOTRIPSY, WITH INSERTION OF URETERAL STENT (SURG) completed Gissel Karen null, [facility] 2022 10:01:43 12/01/19 16 colonoscopy completed Precious Banegas null, [facility] 10/20/2023 16:43:10 01/24/20 13 Cystoscopy completed Gissel Karen null, [facility] 2022 10:01:44 01/24/20 13 Insert bladder catheter completed Gissel Marshall null, [facility] 2022 10:01:44 09/02/20 08 Cystoscopy completed Gissel Karen null, [facility] 2022 10:01:44 06/19/20 08 Cystoscopy completed Gissel Karen null, [facility] 2022 10:01:44 05/08/20 08 [facility] 04/17/20 08 Cystoscopy completed Gissel Karen null, [facility] 2022 10:01:44 Total knee arthroplasty completed Gissel Karen null, [facility] 2022 10:01:44 Total hysterectomy completed Gissel Marshall null, [facility] 2022 10:01:44 Exam of vagina w/scope completed Gissel Marshall null, [facility] 2022 10:01:44 Removal of gallbladder completed Gissel Karen null, [facility] 2022 10:01:44 Imaging Results Imaging Date Name Status [facility]Modified by [facility] Details LastModified Time 03/03/2022 XR, urogram, retrograde completed Information not available 2022 10:01:43 07/22/2022 imaging/diagnos tic result completed [email or web address] Information not available 07/23/2022 09:59:12 01/24/2023 US, abdomen, complete completed [email or web address] Information not available 02/28/2023 09:54:41 01/19/2023 CT, abdomen + pelvis, w/o contrast completed [email or web address] Information not available 02/28/2023 12:41:55 01/19/2023 CT, chest, w/ contrast completed Information not available 02/28/2023 12:41:55 Procedure Notes None recorded. Medical Equipment None Reported. Allergies Allergen ID Allergen Name Allergen Category Reaction Reaction Severity Criticality Documentation Date Start Date Code Code System Note Provider Name and Address Organization Details Recorded Time 675434 latex environme nt,medica tion Not available Not available Not available 04/23/2020 11892 91 RxNorm Gissel Graf blevins [facility] 2 10:01:43 821543 oxycodone medicatio n Not available Not available Not available 04/23/2020 7804 RxNorm Jyothi Laura blevins [facility] 3 10:31:30 882240 morphine sulfate medicatio n Not available Not available Not available 04/23/2020 47863 RxNorm Gissel Jeromerichard blevins [facility] 2 10:01:43 075594 acetamino phen / hydrocodo ne medicatio n nausea severe Not available 02/28/2023 26191 2 RxNorm Jyothi Laura felicity [facility] 3 10:31:55 Medications Name Sig Start Date Stop Date Status Note LastModified by Organization Details LastModified Time amoxicillin 500 mg capsule TAKE 4 CAPSULES BY MOUTH 1 HOUR BEFORE DENTAL APPOINTME NT 02/28 completed Not Available Not Available Not Available fluconazole 100 mg tablet TAKE 1 TABLET BY MOUTH DAILY 02/28 completed Not Available Not Available Not Available fluconazole 150 mg tablet TAKE 1 TABLET BY MOUTH NOW. REPEAT AGAIN IN 72 HOURS IF YEAST INFECTION IS NOT RESOLVED 02/28 completed Not Available Not Available Not Available phenazopyri dine 200 mg tablet TAKE 1 TABLET BY MOUTH THREE TIMES DAILY AFTER MEALS FOR 3 DAYS active Not Available Not Available No t Available acetaminoph en 300 mg-codeine 30 mg tablet TAKE 1 TO 2 TABLET BY MOUTH EVERY 4 TO 6 HOURS NEEDED FOR FOR PAIN active Not Available Not Available No t Available sulfamethox azole 800 mg-trimetho prim 160 mg tablet TAKE 1 TABLET BY MOUTH EVERY DAY 02/28 completed Not Available Not Available Not Available ketorolac 10 mg tablet TAKE 1 TABLET BY MOUTH THREE TIMES DAILY NEEDED active Not Available Not Available No t Available oxycodone-a cetaminophe n 5 mg-325 mg tablet 02/28 completed Not Available Not Available Not Available oxybutynin chloride ER 5 mg tablet,exte nded release 24 hr 02/28 completed Not Available Not Available Not Available metoprolol succinate ER 25 mg tablet,exte nded release 24 hr 02/28 completed Not Available Not Available Not Available levofloxaci n 500 mg tablet TAKE 1 TABLET BY MOUTH DAILY 02/28 completed Not Available Not Available Not Available estradiol 0.01% (0.1 mg/gram) vaginal cream INSERT 1 GRAM VAGINALLY 1 TIME WEEKLY 02/28 completed Not Available Not Available Not Available oxycodone 5 mg tablet 02/28 completed Not Available Not Available Not Available metoprolol tartrate 25 mg tablet 02/28 completed Not Available Not Available Not Available Vitals Date Recorded Body height Body mass index (BMI) Body weight Provider Name and Address Organization Details Last Updated DateTime 10/04/2022 157.48 cm 31.1 kg/m2 97484.7 g Ulysses Yeung MD [address] [facility] [address], [place], [address], [facility] 10/04/2022 12:09:52 Date Recorded Body height Body mass index (BMI) Body weight Provider Name and Address Organization Details Last Updated DateTime 02/28/2023 157.48 cm 32.6 kg/m2 21932.44 g Jyothi blevins [facility] 02/28/2023 10:30:14 Social History Question Answer Notes LastModified by Organizat ion Details LastModified Time Tobacco Smoking Status Former Smoker Jyothi blevins [facility] 02/28/2023 10:34:42 What Is Your Level Of Alcohol Consumption? Occasional [email or web address] Information not available 02/28/2023 What Is Your Level Of Caffeine Consumption? Moderate [email or web address] Information not available 02/28/2023 When Did You Quit Smoking? 16+yearssincel janee [email or web address] Information not available 02/28/2023 Race White Information no t available 2022 Marital Status [email or web address] Informati on not available 04/24/2020 What Was The Date Of Your Most Recent Tobacco Screening? 02/28/2023 [email or web address] Information not available 02/28/2023 Do You Use Any Illicit Or Recreational Drugs? No [email or web address] Information not available 02/28/2023 Has Tobacco Cessation Counseling Been Provided? No [email or web address] Information not available 02/28/2023 How Many Years Have You Smoked Tobacco? 10 [email or web address] Information not available 02/28/2023 Do You Or Have You Ever Used Any Other Forms Of Tobacco Or Nicotine? No [email or web address] Information not available 02/28/2023 Sex: Female Functional Status None recorded. Mental Status None recorded. Family History Relationship Description Onset Age of this Age Resolved Age Notes Notes:Cancer :Grandmother Cancer :Father Diabetes:Aunt Arthritis:Runs in Family Asthma:Runs in Family Medical History Condition Response Diabetes N Sexually Transmitted Infection N Other N Bleeding Disorder N High Blood Pressure Y Kidney Stones Y Cancer N Lung Disease N Depression N High Cholesterol Y Heart Disease N Gynecological HistoryNo gynecological history recorded. Obstetrics History GPAL:G 0 P 0 0 0 0 Immunizations Vaccine Type Date Status Provider Name and Address Organization Details Recorded Time pneumococcal polysaccharide PPV23 05/24/2019 completed Jyothihortensia blevins [facility] 02/28/2023 10:30:33 Tdap 04/29/2008 [facility]2023 16:42:40 Novel [id number], all formulations 10/10/2009 [facility]2023 16:42:41 Influenza, seasonal, injectable 11/19/2011 completed Vanida Nuzhat felicity [facility] 05/26/2023 16:42:41 Influenza, seasonal, injectable 11/27/2012 completed Vanida Nuzhat null, [facility] 05/26/2023 16:42:41 Influenza, seasonal, injectable 12/18/2010 completed Vanida Nuzhat null, [facility] 05/26/2023 16:42:41 Influenza, seasonal, injectable 09/11/2007 completed Vanida Nuzhat null, [facility] 05/26/2023 16:42:41 Influenza, seasonal, injectable 09/24/2005 completed Vanida Nuzhat null, [facility] 05/26/2023 16:42:41 Td (adult), 5 Lf tetanus toxoid, preservative free, adsorbed 09/24/2005 completed Vanida Nuzhat null, [facility] 05/26/2023 16:42:41 Td (adult), 2 Lf tetanus toxoid, preservative free, adsorbed 11/01/2017 completed Vanida Nuzhat null, [facility] 05/26/2023 16:42:41 influenza, injectable, quadrivalent, preservative free 08/23/2018 completed Vanida Nuzhat null, [facility] 05/26/2023 16:42:41 influenza, injectable, quadrivalent, preservative free 10/10/2009 completed Vanida Nuzhat null, [facility] 05/26/2023 16:42:41 influenza, injectable, quadrivalent, preservative free 11/01/2017 completed Vanida Nuzhat null, [facility] 05/26/2023 16:42:41 Past Encounters Encounter ID Performer Location Encounter Start Date Encounter Closed Date Diagnosis/Indication [id number] MD MARCO [facility] [address] [place] [address] 10/04/2022 11:38:45 10/06/2022 12:47:05 Kidney stone [id number] Ulysses Yeung MD [facility] [address] [place] [address] 02/28/2023 10:17:41 03/04/2023 12:56:15 Kidney stone Health Concerns Section Related Observation LastModified by Organization Detai ls LastModified Time None Recorded Concern Status LastModified by Organization Details LastModified Time None Recorded Advance Directives Directive None Recorded Payers Encounter Date Sequence Insurance Name Policy Number Policy Deshpande Covered Member ID Deshpande Member ID Guarantor Name 02/28/2023 1 [place] COST [id number] Hannah Robb [id number] Hannah Robb 10/04/2022 1 [place] CO[place] [id number] Hannah Robb [id number] Hannah Robb Notes Date Note Type Note Provider Name and Address Organization Details Recorded Time 10/04/2022 text/html HPI Notes: follow up Right PCNL on 07/21. no trouble since then. has a little tethering sensation at times. urine has looked clear. Ulysses Yeung MD [address] [place] [address],[address] [place] [address], [address], [facility] 10/04/2022 12:20:57 02/28/2023 text/html HPI Notes: follow up stones. had CT done early january possible showing some stones on the left side, U/S done after that showed on stones or hydro but did see some debis or sludge in common bile duct and she has been having RUQ pain. probably needs to see GI med for that. UA crystal clear today. Ulysses Yeung MD [address] [place] [address],[address], [place], [address], [facility] 02/28/2023 10:49:45 OBGyn Episode No OBEpisode recorded.
[2023-12-08] MEDS: ACETAMINOPHEN 500 MG TABLET 1000 MG PO ×3 (11:12→23:16)
[2023-12-08] MEDS: OXYCODONE (CR) 10 MG TAB.ER.12H PO (11:13)
[2023-12-08] MEDS: SODIUM CHLORIDE 0.9 % (FLUSH) 10 ML SYRINGE IVF (11:20)
[2023-12-08] MEDS: LACTATED RINGERS 1000 ML 1,000 ML 100 ML IV ×2 (11:20→13:29)
[2023-12-08] MEDS: fentaNYL 100 MCG/2 ML inj IVP (11:34)
[2023-12-08] MEDS: MIDAZOLAM HCL 1 MG/ML inj IVP (11:34)
--- NOTE | 2023-12-08 11:36 | SUR.PREOP ---
TIME?OUT:?1133 PT/Savannah Israel RN/Dr. Rosa MDA?VERIFICATION?OF?SURGICAL?SITE right knee,?PROCEDURE,?AND?CONSENT OBTAINED?PRIOR?TO?INVASIVE?PROCEDURE.
--- NOTE | 2023-12-08 11:40 | P.NB_ITS ---
Nerve Block Nerve Block Time Seen by Provider: 11:36 Date Seen: 12/08/23 Type of block requested by surgeon for post-operative analgesia: adductor canal Side: right Time out performed: Yes Verification of patient name: Yes Verification of date of : Yes Site marking: site marked Name of person performing procedure: Dimitrios Continuous monitoring Was continuous monitoring of O2 sat, B/P, quality assurance monitor chassis, recorded every 15 minutes?: Yes Procedure Checklist: sterile prep, needles and gloves Ultrasound guided. Images saved: Yes Medications given in 5ml increments after negative aspiration: Ropivicaine %: 0.5 mL: 20 Needle gauge: 20 Decadron (mg): 10 Precedex (mcg): 25 Patient tolerated procedure well: Yes Additional comments: Needle noted adjacent to nerve Block Charges Block Charge (with Pro Fee): Femoral Nerve Use of Ultrasound Machine for Block: Yes- US Guidance/pain block
--- NOTE | 2023-12-08 11:41 | P.NB_ITS ---
Nerve Block Nerve Block Time Seen by Provider: 11:36 Date Seen: 12/08/23 Type of block requested by surgeon for post-operative analgesia: geniculars Side: right Time out performed: Yes Verification of patient name: Yes Verification of date of : Yes Site marking: site marked Name of person performing procedure: Dimitrios Continuous monitoring Was continuous monitoring of O2 sat, B/P, lead electrical engineer, recorded every 15 minutes?: Yes Procedure Checklist: sterile prep, needles and gloves Medications given in 5ml increments after negative aspiration: Ropivicaine %: 0.5 mL: 9 Needle gauge: 25 Patient tolerated procedure well: Yes Block Charges Block Charge (with Pro Fee): Genicular Nerve Block Use of Ultrasound Machine for Block: No
--- NOTE | 2023-12-08 11:41 | W.ANESCHARGE ---
Anesthesia Charges Start Date/Time Anesthesia Start Date: 12/08/23 Anesthesia Start Time: 12:02 Stop Date/Time Anesthesia Stop Date: 12/08/23 Anesthesia Stop Time: 14:00
[2023-12-08] MEDS: CEFAZOLIN 2 GM INJ IVP (12:16)
[2023-12-08] MEDS: TRANEXAMIC ACID 100 MG/ML INJ 1000 MG IV (12:18)
--- NOTE | 2023-12-08 13:25 | CRLHL7_ITS ---
For Patients: As a result of the Cures Act, medical imaging exams and procedure reports are released immediately into your electronic medical record. You may view this report before your referring provider. If you have questions, please contact your health care provider. Indication: post op TKA Technique: Two views right knee Findings/Impression: Hardware from a right total knee arthroplasty is in satisfactory position. Bone alignment is normal. No sign of acute fracture. Postop changes are within normal limits. Mild chronic changes of the proximal fibula, unchanged compared to 11/21/2023. Dictated by Bennett Talley MD @ 12/08/2023 3:10:53 PM (Electronically Signed)
--- NOTE | 2023-12-08 13:27 | P.ORPRC_ITS ---
Procedure Note Date of procedure: 12/08/23 Procedure: PREOPERATIVE DIAGNOSIS: Right knee osteoarthritis POSTOPERATIVE DIAGNOSIS: Right knee osteoarthritis NAME OF OPERATION: Right total knee arthroplasty SURGEON: Дмитрий Rizzo MD ACID PAINTER: KYREE Byers ANESTHESIA: Spinal ESTIMATED BLOOD LOSS: 0 mL COMPLICATIONS: None SPECIMENS: None DRAINS: None PREOPERATIVE ANTIBIOTICS: Ancef 2 grams IMPLANTS: 1. J&J Attune # 6 narrow posterior stabilized femur 2. # 5 fixed-bearing tibia 3. #6 posterior stabilized, 10 mm fixed-bearing polyethylene 4. 38 patella INDICATIONS: The patient is a 63-year-old with a longstanding history of severe, unrelenting right knee pain secondary to end-stage (grade IV) right knee osteoarthritis. Despite appropriate nonoperative management, including activity modification, anti-inflammatories, [id number]-zinmdoj pain medication, bracing, physical therapy, and injections they continue to have pain and disability. Operative intervention was offered. The risks, benefits and expected outcomes were discussed in detail. These i ncluded but were not limited to: Infection, bleeding, injury to blood vessel or nerve, venous thromboembolism. All questions were answered to their satisfaction. Use of an assistant research scientist was necessary throughout the case for patient positioning and safety, soft tissue retraction, and closure. PROCEDURE: Spinal anesthesia was administered. The patient was placed supine on the operating table. The assistant research scientist made sure the patient was positioned appropriately. The lower extremity was prepped and draped in the usual sterile fashion. The limb was exsanguinated with the Duarte bandage. The pneumatic tourniquet was inflated to 300 mmHg. A standard anterior incision was made with the knee in flexion. Subcutaneous dissection was sharply taken through fascial layer #1. Full-thickness medial a nd lateral flaps were elevated. The assistant research scientist retracted the soft tissues and protected them throughout the case. A standard subvastus approach was made. The patella was everted. The infrapatellar fat pad was preserved. The menisci and cruciate ligaments were sharply d?brided. Marginal osteophytes were d?brided with the rongeur. The drill was used to penetrate the femoral canal. The canal was aspirated and irrigated with pulse lavage. The intramedullary femoral guide was placed for a 5-degree valgus cut, removing 10 mm off the distal femur. The saw was used to make the cut. Whitesides line and the trans epicondylar axis were marked. The femoral sizing guide was pinned onto the distal femur. Three degrees of external rotation nicely parallels the transepicondylar axis. Pins were placed for posterior referencing. The four-in-one cutting guide was pinned onto the distal femur. The anterior, posterior, and chamfer cuts were made. The assistant research scientist protected the collateral ligaments. The box cutting guide was pinned. The box cuts were made. The boxed trial was placed and was an excellent fit. Drill holes for the lugs were made. Attention was then turned to the proximal tibia. The extramedullary tibial guide was placed for a neutral varus/valgus cut with 5 degrees of posterior slope, removing 2 mm based off the medial tibial surface. The assistant research scientist protected the collateral ligaments and the neurovascular bundle. The saw was used to make the cut. Trial components were placed. The knee was nicely balanced in both flexion and extension. The trial components were removed. The tray was placed in appropriate rotation, parallel to our tibial cutting pins. It was pinned by the assistant research scientist and the drill and the punch were used. The tray was removed. The punch was used again. We placed a bone plug in the femoral canal. Attention was then turned to the patella. [place] patellar thickness was 22.5 mm. The lobster claw resection guide was used with the 9.5 mm yoana. The saw was used to make the cut. Drill holes were made by the assistant research scientist. The trial was placed and was an excellent fit. Cancellous surfaces were irrigated with pulse lavage and thoroughly dried by the assistant research scientist. We cemented the tibial component, then the femoral component. We impacted the 10 mm polyethylene onto the tibial tray. The knee was brought into full extension. We then cemented the patellar component. Excessive cement was removed. The cement was allowed to harden. The knee was taken through a range of motion and was found to be nicely balanced in both flexion and extension. The patella tracks centrally. The assistant research scientist did a three minute dilute Betadine solution soak. The assistant research scientist irrigated the wound with 3 liters of normal saline via pulse lavage. The ass istant reapproximated the extensor mechanism with #1 Vicryl in an interrupted [id number] fashion. The assistant research scientist then ran the extensor mechanism with a #1 PDO Stratafix. The assistant research scientist closed the subcutaneous tissues with a 3-0 Stratafix and the skin with a running 3-0 Stratafix in a subcuticular fashion. Glue was used to seal the skin. The assistant research scientist placed a dry dressing, RON stocking, and Polar Care. Sponge and needle counts were correct x2. The patient tolerated the procedure well. There were no apparent complications. They were carefully transferred to the hospital bed and taken to the postanesthesia care unit in satisfactory condition. PLAN: The patient will be mobilized with physical therapy. Aspirin will be used for DVT prophylaxis. They will be discharged to home once medically appropriate.
[2023-12-08] MEDS: fentaNYL 100 MCG/2 ML inj 50 MCG IVP ×2 (13:58→14:10)
--- NOTE | 2023-12-08 14:03 | W.ANESCHARGE ---
Anesthesia Charges Start Date/Time Anesthesia Start Date: 12/08/23 Anesthesia Start Time: 12:02 Stop Date/Time Anesthesia Stop Date: 12/08/23 Anesthesia Stop Time: 14:00
[2023-12-08] MEDS: HYDROmorphone 0.5 mg/0.5 ml inj IVP ×2 (14:15→15:46)
[2023-12-08] MEDS: ACETAMINOPHEN INJ 1,000 MG/100 ML VIAL 400 MG IVPB (14:24)
--- NOTE | 2023-12-08 15:01 | PM.IMCN1 ---
Date of Consult Consult date: 12/08/23 Primary Care Provider: Leonie Orr DO Consult Narrative Narrative: HOSPITALIST CONSULT NAME OF OPERATION: Right total knee arthroplasty SURGEON: Дмитрий Rizzo MD ANESTHESIA: Spinal ESTIMATED BLOOD LOSS: 0 mL The hospital medicine team was asked by the orthopedic surgery team to manage the patient's hypertension, obesity, history of carotid artery stenosis. There have been no perioperative complications. Updated and reviewed the active medical problems, past medical history, past surgical history, social history, allergies and medications in our electronic EMR. PHYSICAL EXAM: CODE STATUS: FULL CODE CONSTITUTIONAL: Conversive, good historian. A/O. Knows setting and context. VITAL SIGNS: see record. HEENT: Normocephalic, atraumatic. PERRL, EOMI, conjunctivae pink, no scleral icterus. Ears and nose externally normal. Pharynx normal. NECK: No JVD. No carotid bruit, no thyromegaly, no adenopathy. CHEST: Clear to auscultation bilaterally HEART: S1 and S2 normal. ABDOMEN: Flat, soft, nontender. Normal bowel sounds. Moderately obese. EXTREMITIES: No edema. MUSCULOSKELETAL: right knee: Surgical dressing intact. NEURO: Cranial nerves intact. Mentation normal. Normal affect. SKIN: No rashes, petechiae, concerning changes PSYCHIATRIC: Mentation normal. INVESTIGATIONS: EMR Reviewed; Pre-OP Reviewed DISPOSITION: DVT: Agree with Ortho team decision, aspirin BID appropriate GI: PO intake [facility] Medical History (Updated 12/08/23 @ 18:20 by Lupe Dash MD) Osteoarthritis of right knee ?M17.11 - Unilateral primary osteoarthritis, right knee (ICD-10) Stenosis of carotid artery (04/2018) ?I65.29 - Occlusion and stenosis of unspecified carotid artery (ICD-10) Osteopenia (2018) ?M85.80 - Other specified disorders of bone density and structure, unspecified site (ICD-10) Hypertension ?I10 - Essential (primary) hypertension (ICD-10) Dyslipidemia ?E78.5 - Hyperlipidemia, unspecified (ICD-10) Class 1 obesity ?E66.9 - Obesity, unspecified (ICD-10) Anxiety ?F41.9 - Anxiety disorder, unspecified (ICD-10) Vitamin D deficiency ?E55.9 - Vitamin D deficiency, unspecified (ICD-10) Vesicovaginal fistula (05/08/08) ?N82.0 - Vesicovaginal fistula (ICD-10) Statin intolerance ?Z78.9 - Other specified health status (ICD-10) Post-COVID chronic neurologic symptoms ?R29.90 - Unspecified symptoms and signs involving the nervous system (ICD-10) ?U09.9 - Post covid-19 condition, unspecified (ICD-10) Osteoarthritis of multiple joints ?M15.9 - Polyosteoarthritis, unspecified (ICD-10) Lumbar back pain ?M54.50 - Low back pain, unspecified (ICD-10) Migraine headache (05/05/06) ?G43.909 - Migraine, unspecified, not intractable, without status migrainosus (ICD-10) History of depression ?Z86.59 - Personal history of other mental and behavioral disorders (ICD-10) History of colonic polyps ?Z86.010 - Personal history of colonic polyps (ICD-10) Surgical History (Updated 12/08/23 @ 15:38 by Lupe Dash MD) History of total right knee replacement (12/08/23) ?Z96.651 - Presence of right artificial knee joint (ICD-10) H/O arthroscopy of left knee (12/03/03) ?Z98.890 - Other specified postprocedural states (ICD-10) S/P right knee arthroscopy (11/12/05) ?Z98.890 - Other specified postprocedural states (ICD-10) History of total left knee replacement (06/13/09) ?Z96.652 - Presence of left artificial knee joint (ICD-10) History of total right hip arthroplasty (01/02/16) ?Z96.641 - Presence of right artificial hip joint (ICD-10) History of hip surgery (06/06/18) ?Z98.890 - Other specified postprocedural states (ICD-10) Status post left foot surgery (12/29/20) ?Z98.890 - Other specified postprocedural states (ICD-10) History of total left hip arthroplasty (05/19/21) ?Z96.642 - Presence of left artificial hip joint (ICD-10) Status post laser lithotripsy of ureteral calculus ?Z98.890 - Other specified postprocedural states (ICD-10) History of vein stripping ?Z98.890 - Other specified postprocedural states (ICD-10) History of hysterectomy with oophorectomy (03/25/08) History of colonoscopy (12/01/15) ?Z98.890 - Other specified postprocedural states (ICD-10) History of cholecystectomy ?Z90.49 - Acquired absence of other specified parts of digestive tract (ICD-10) History of section ?Z98.891 - History of uterine scar from previous surgery (ICD-10) History of bladder repair surgery (2008) ?Z98.890 - Other specified postprocedural states (ICD-10) Family History Father Brain cancer Paternal Grandmother Breast cancer Sister Drug abuse Other Osteoarthritis Social History Narrative: exercise daily- takes care of horses (5), rides, gardens etc, very active , [employer], 4 kids non-smoker: quit 03/2017, 28 pack years social drinker- 6/month Smoking Status: Never smoker Do you use any of these nicotine containing products: None Second hand tobacco smoke exposure: No How often do you have a drink containing alcohol: monthly or less How many standard drinks containing alcohol do you have on a typical day: 1 or 2 How often do you have six or more drinks on one occasion: Never AUDIT-C Alcohol total score: 1 Non-prescribed substance use: denies use Caffeine: Yes (2-3 pots/coffee) Are you using contraception or practicing any form of control: No service: No Meds Home Medications and Allergies Home Medications Medication Instructions Recorded Confirmed Type acetaminophen 325 mg capsule 650 mg PO Q4-6H PRN 12/06/23 12/06/23 History ibuprofen 800 mg tablet 800 mg PO TID-QID PRN 12/06/23 12/06/23 History triamcinolone acetonide 0.1 % 1 applic topical BID-TID 12/06/23 12/06/23 History topical cream Allergies Allergy/AdvReac Type Severity Reaction Status Date / Time atorvastatin Allergy Intermediate severe Verified 12/08/23 10:36 muscle spasms celecoxib Allergy Intermediate generalized Verified 12/08/23 10:36 swelling hydrocodone Allergy Intermediate stomach Verified 12/08/23 10:36 pain latex Allergy Intermediate severe Verified 12/08/23 10:36 swelling/pain in urethra when latex catheter used morphine Allergy Intermediate redness Verified 12/08/23 10:36 along vein lisinopril Allergy Mild severe Verified 12/08/23 10:36 headaches ezetimibe Allergy Unknown Verified 12/08/23 10:36 rosuvastatin AdvReac Unknown Verified 12/08/23 10:36 Exam Const: Vital Signs, click to edit/add: Vital Signs - 24 hr 12/08/23 11:26 12/08/23 11:33 12/08/23 11:35 Temperature 97.7 F Pulse Rate 73 72 77 Respiratory Rate 16 16 16 Blood Pressure 150/86 H 153/82 H 144/80 H Pulse Oximetry 94 98 99 Oxygen Delivery Me thod Room Air Nasal Cannula Nasal Cannula Oxygen Flow Rate 2 2 12/08/23 11:45 12/08/23 13:55 12/08/23 14:00 Temperature 97.4 F L Pulse Rate 61 73 68 Respiratory Rate 14 10 L 12 Blood Pressure 122/74 172/97 H 167/88 H Pulse Oximetry 91 96 97 Oxygen Delivery Me thod Nasal Cannula Room Air Room Air Oxygen Flow Rate 3 12/08/23 14:05 12/08/23 14:10 12/08/23 14:15 Temperature Pulse Rate 79 73 77 Respiratory Rate 14 10 L 12 Blood Pressure 163/107 H 139/109 H 161/77 H Pulse Oximetry 96 98 96 Oxygen Delivery Me thod Room Air Room Air Room Air Oxygen Flow Rate 12/08/23 14:20 12/08/23 14:25 12/08/23 14:30 Temperature Pulse Rate 87 85 77 Respiratory Rate 12 12 12 Blood Pressure 154/91 H 166/86 H 148/94 H Pulse Oximetry 98 98 96 Oxygen Delivery Me thod Room Air Room Air Room Air Oxygen Flow Rate 3 12/08/23 14:36 Temperature Pulse Rate 80 Respiratory Rate 14 Blood Pressure 128/86 Pulse Oximetry 98 Oxygen Delivery Me thod Room Air Oxygen Flow Rate 3 Assessment and Plan Assessment and plan (1) Status post right knee replacement: Problem comment: 12/08/23 Dr. Rizzo Status: Acute (2) Hypertension: Problem comment: -no meds. pre-op: 157/78 -PCP working with patient on weight loss; intolerance to many meds Status: Acute (3) Stenosis of carotid artery: Problem comment: No info in Epic. Patient thinks this was on all community life screen and she gave the report to her PCP. No further details. Status: Acute (4) Dyslipidemia: Problem comment: statin intolerance 12/07: LDL 154, Tri 179, HDL 57 Status: Acute (5) Class 1 obesity: Status: Acute (6) Anxiety: Status: Acute
[2023-12-08] MEDS: OXYCODONE 5 MG TABLET PO ×3 (15:45→23:17)
[2023-12-08] MEDS: ONDANSETRON 2 MG/ML inj 4 MG IVP (18:33)
[2023-12-08] MEDS: CEFAZOLIN 1 GM in 0.9 % SODIUM CHLORIDE Mini-bag 100 ML IVPB (18:34)
--- NOTE | 2023-12-08 19:38 | PC.NURSE ---
Nursing Care Hours: [id number] Pt arrived from PACU oriented and lethargic. Reported that block did not take affect, pt given multiple IV pain medications. Spo2 dropped to low 80's while sleeping, entry writer in room encouraging pt to take deep breaths, then sats would rise to normal limits. Held pain meds until more alert. Pt suddenly began crying and was restless, rating pain 10/10. IV and oral pain meds given, treatment effective. Removed weight of blankets helped as well. Incontinent when up to void first time. RON replaced. Up in chair for dinner. C/o mild nausea, zofran given. Vitals remained stable. Bandage CDI, CMS intact. SL.
[2023-12-08] MEDS: ASPIRIN 81 MG TABLET EC PO (21:08)
[2023-12-08] MEDS: SENNOSIDES 1 TAB TABLET 2 TAB PO (21:08)
[2023-12-08] MEDS: TRIAMCINOLONE ACETONIDE CREAM 0.1 % 1 APPLIC TOPICAL (21:09)
[2023-12-09] MEDS: CEFAZOLIN 1 GM in 0.9 % SODIUM CHLORIDE Mini-bag 100 ML IVPB (02:28)
[2023-12-09 02:30] VITALS: BP 130/75; PULSE 72; RESP 18; TEMP 36.5; O2SAT 95
[2023-12-09] MEDS: OXYCODONE 5 MG TABLET PO ×3 (05:59→11:08)
[2023-12-09 06:49] LABS: Hematocrit 33.9 % (33.0-51.0); Hemoglobin* 11.1 gm/dL (12.0-16.0); Immature Granulocytes Pct Auto 0.2 %; Lymphocytes Percent Auto 10.3 % (20-44); Mean Corpuscular HGB Conc 33 gm/dL (32-36); Mean Corpuscular Hemoglobin 28 pg (26-34); Mean Corpuscular Volume 86 fL (80-100); Neutrophils Percent Auto 81.5 % (42.0-72.0); Platelet Count* 254 K/uL (140-440); Red Blood Count 3.94 m/uL (4.00-5.20); White Blood Count* 11.95 K/uL (4.50-11.00)
[2023-12-09 06:53] LABS: Slide Review Reflex No
[2023-12-09 07:00] VITALS: BP 153/77; PULSE 77; RESP 16; RESP 18; TEMP 36.5; O2SAT 96
[2023-12-09 07:01] LABS: Sodium* 135 mmol/L (135-149)
--- NOTE | 2023-12-09 07:01 | PC.NURSE ---
19-07: pleasant and cooperative. 200mL emesis at beginning of shift. Pt became nauseous after IV ABX @ 0300, no emesis. Nausea subsided shortly thereafter. Pain 2-3/10, prn oxy given. Dressing CDI, cryocuff on.
[2023-12-09 07:02] LABS: INR 0.96 (0.91-1.10); Prothrombin Time 13.3 Seconds
[2023-12-09 07:04] LABS: Creatinine* 0.6 mg/dL (0.5-1.5); Est. Creatinine Clearance* 46.13; Estimated Glomerular Filt Rate 101 ml/min
[2023-12-09 07:05] LABS: Blood Urea Nitrogen* 18 mg/dL (7-30)
[2023-12-09] MEDS: SENNOSIDES 1 TAB TABLET 2 TAB PO (08:21)
[2023-12-09] MEDS: ASPIRIN 81 MG TABLET EC PO (08:21)
--- NOTE | 2023-12-09 09:27 | PM.ORPN ---
Subjective Subjective Time Seen by Provider: 07:30 Date Seen: 12/09/23 Principal diagnosis: Status post right knee replacement Interval history: Hannah is fairly comfortable this morning. She does have posterior knee discomfort. Ortho Exam Narrative Exam Narrative: Alert and oriented x3. Patient is in no acute distress. Converses without labored breathing. Hearing is grossly intact. Ambulates with a walker. Examination of the right lower extremity shows the dressing is in place. CMS intact right lower extremity. Bilateral calves are soft and nontender. Quad strength 5/5. Able to flex and extend the knee. No erythema or warmth or sign of infection. Const Vital Signs, click to edit/add: Vital Signs - 24 hr 12/08/23 11:26 12/08/23 11:33 12/08/23 11:35 Temperature 97.7 F Pulse Rate 73 72 77 Pulse Rate [Pulse Oximeter] Respiratory Rate 16 16 16 Blood Pressure 150/86 H 153/82 H 144/80 H Blood Pressure [Left Arm] Pulse Oximetry 94 98 99 Oxygen Delivery Method Room Air Nasal Cannula Nasal Cannula Oxygen Flow Rate 2 2 12/08/23 11:45 12/08/23 13:55 12/08/23 14:00 Temperature 97.4 F L Pulse Rate 61 73 68 Pulse Rate [Pulse Oximeter] Respiratory Rate 14 10 L 12 Blood Pressure 122/74 172/97 H 167/88 H Blood Pressure [Left Arm] Pulse Oximetry 91 96 97 Oxygen Delivery Method Nasal Cannula Room Air Room Air Oxygen Flow Rate 3 12/08/23 14:05 12/08/23 14:10 12/08/23 14:15 Temperature Pulse Rate 79 73 77 Pulse Rate [Pulse Oximeter] Respiratory Rate 14 10 L 12 Blood Pressure 163/107 H 139/109 H 161/77 H Blood Pressure [Left Arm] Pulse Oximetry 96 98 96 Oxygen Delivery Method Room Air Room Air Room Air Oxygen Flow Rate 12/08/23 14:20 12/08/23 14:25 12/08/23 14:30 Temperature Pulse Rate 87 85 77 Pulse Rate [Pulse Oximeter] Respiratory Rate 12 12 12 Blood Pressure 154/91 H 166/86 H 148/94 H Blood Pressure [Left Arm] Pulse Oximetry 98 98 96 Oxygen Delivery Method Room Air Room Air Room Air Oxygen Flow Rate 3 12/08/23 14:36 12/08/23 15:00 12/08/23 15:00 Temperature 98.9 F 97.9 F Pulse Rate 80 79 Pulse Rate [Pulse Oximeter] 64 Respiratory Rate 14 16 14 Blood Pressure 128/86 Blood Pressure [Left Arm] 142/80 H 136/75 Pulse Oximetry 98 97 Oxygen Delivery Method Room Air Room Air Room Air Oxygen Flow Rate 3 12/08/23 15:15 12/08/23 15:30 12/08/23 15:45 Temperature 98.7 F Pulse Rate Pulse Rate [Pulse Oximeter] 70 73 74 Respiratory Rate 16 16 Blood Pressure Blood Pressure [Left Arm] 135/71 145/80 H 129/75 Pulse Oximetry 94 98 90 Oxygen Delivery Method Room Air Room Air Room Air Oxygen Flow Rate 12/08/23 16:15 12/08/23 16:45 12/08/23 18:00 Temperature Pulse Rate Pulse Rate [Pulse Oximeter] 79 77 77 Respiratory Rate 16 18 Blood Pressure Blood Pressure [Left Arm] 137/68 133/86 136/68 Pulse Oximetry 95 95 97 Oxygen Delivery Method Room Air Room Air Room Air Oxygen Flow Rate 12/08/23 19:00 12/08/23 20:00 12/08/23 21:00 Temperature 97.6 F 97.6 F Pulse Rate Pulse Rate [Pulse Oximeter] 73 76 Respiratory Rate 18 18 Blood Pressure Blood Pressure [Left Arm] 143/79 H 147/87 H 144/77 H Pulse Oximetry 95 95 Oxygen Delivery Method Room Air Room Air Room Air Oxygen Flow Rate 12/08/23 23:15 12/09/23 02:30 12/09/23 07:00 Temperature 97.8 F 97.7 F 97.7 F Pulse Rate Pulse Rate [Pulse Oximeter] 74 72 77 Respiratory Rate 18 18 18 Blood Pressure Blood Pressure [Left Arm] 130/78 130/75 153/77 H Pulse Oximetry 93 95 96 Oxygen Delivery Method Room Air Room Air Room Air Oxygen Flow Rate Assessment and Plan Assessment and plan (1) Status post right knee replacement: Problem details: 12/08/23 Dr. iRzzo Status: Acute Assessment and Plan: Plan for discharge is today to home if they meet discharge criteria. DVT prophylaxis includes aspirin 81 mg twice daily x1 month, Troy stockings x1 month may remove for 1 hr per day, frequent ambulation. Both Dr. Lawson and Dr. Rizzo agree with DVT prophylaxis. Remove dressing in 1 week. Observe wound and phone Orthopedics with any questions or concerns Return to clinic in 1 week for a wound check Return to clinic in 6 weeks with surgeon Minimize narcotic use. Wean off and discontinue soon as possible. Activities as tolerated. No strenuous activity. Outpatient physical therapy as scheduled. Ice and elevate the operative extremity. No restriction on ice.
--- NOTE | 2023-12-09 11:30 | PC.NURSE ---
Discharge note: Pt friendly and cooperative with cares. BP slightly hypertensive, VS otherwise WNL. LS COA and pt has been afebrile. Surgical dressing is C,D,&I with cryocuff in place. Pt compliant with RON socks bilaterally. Rates pain 6-8/10 with movement but states she is otherwise comfortable at rest. Pt states pain is well controlled with scheduled Tylenol and PRN Oxycodone 5mg approx A7uttae. Pt moves well with SBA and was discharged home via wheelchair in the care of her at 11:33. Pt and spouse verbalized understanding of discharge instructions and follow up appointments.
== END 2023-12-09 11:34 | disposition home or self-care (01) ==
LOC: OR 13:11 → MEDSURG 14:43
PROVIDERS: PCP Family Medicine; Visit Provider Orthopaedic Surgery
PROC: (CPT 27447; principal; 2023-12-08 12:45)
DX: M17.11 Unilateral primary osteoarthritis, right knee (principal); G89.18 Other acute postprocedural pain; I10 Essential (primary) hypertension; E66.9 Obesity, unspecified; F41.9 Anxiety disorder, unspecified; I65.29 Occlusion and stenosis of unspecified carotid artery; E78.5 Hyperlipidemia, unspecified; Z68.30 Body mass index [BMI] 30.0-30.9, adult
CPT/HCPCS: 27447; 01402; 36415; 64447; 64454; 73560; 76942; 82565; 84132; 84295; 84520; 85025; 85610; 97110; 97116; 97161; 97165; 97535; A9270; C1776; J0131; J0690; J1100; J1170; J2250; J2405; J2704; J2795; J3010; J7120

== ENCOUNTER 2023-12-20 17:45 | Outpatient (CLI) | payer BC, SELFPAY ==
--- OUTSIDE RECORDS SUMMARY | 2023-12-20 17:48 | XMS_ITS | Clinical Summary ---
Author Name Unknown Organization [facility] Address [place], [place] [address] Care Team Providers Care Evaporator Operator Name Role Phone Leonie Orr DO Primary Care Provider [phone] Jean Chang MD Unavailable [phone] Dg Garza Unavailable Allergies Active Allergy Reactions [...] Department Care Team Description 11/29/2023 8:30 AM FITTER MECHANIC Preop Visit [facility] [address] [place] [address] [place]qra Leonie Belle, DO Preoperative Exam (12/08/23 - [facility] - Dr. So Levi total knee ) 11/29/2023 Travel 11/23/2023 Nurse Triage [facility] [address] [place] [address] Kirby Leonie Belle, DO Rash 11/23/2023 Telephone [facility] [address] [place] [address] Sir Orri Belle, DO Referral (PHYSICAL THERAPY ) 11/23/2023 Telephone [facility] [address] [place] [address] Sir Orri Belle, DO Referral (DERM REFERRAL/TAREEN [...] Comments Blood Pressure 138/78 11/29/2023 9:11 AM FITTER MECHANIC Pulse 66 11/29/2023 8:37 AM FITTER MECHANIC Temperature 36.6 ??C (97.8 ??F) 05/01/2023 9:52 AM CD T Respiratory Rate 18 05/01/2023 9:52 AM CDT Oxygen Saturation 98% 11/29/2023 8:37 AM FITTER MECHANIC Inhaled Oxygen Concentration - - Weight 76.6 kg (168 lb 14.4 oz) 11/29/2023 8:37 AM FITTER MECHANIC Height 158.8 cm (5' 2.5) 02/14/2023 7:32 [...] Diagnosis Comments HEMOGLOBIN Routine 11/29/2023 9:28 AM FITTER MECHANIC Pre-op exam LIPID PANEL W REFLEX MEASURED LDL Routine 11/29/2023 9:28 AM FITTER MECHANIC Mixed hyperlipidemia from Last 3 Months Results * (ABNORMAL) LIPID PANEL W REFLEX MEASURED LDL (11/29/2023 9:28 AM FITTER MECHANIC) CHOLESTEROL,TOTAL 247(H) 100 - 199 mg/dL 11/29/2023 5:31 PM FITTER MECHANIC [employer] Comment: Cholesterol, Total Reference Ranges Desirable <200 mg/dL Borderline 200-239 mg/dL High >=240 mg/dL TRIGLYCERIDES 179(H) <150 mg/dL 11/29/2023 5:31 PM FITTER MECHANIC [facility] HDL CHOLESTEROL 57 >40 mg/dL 01/16/202 4 5:31 PM FITTER MECHANIC [facility] NON-HDL CHOLESTEROL 190(H) <145 mg/dl 11/29/2023 5:31 PM FITTER MECHANIC [facility] CHOL/HDL RATIO 4.33 <4.50 11/29/2023 5:31 PM FITTER MECHANIC [facility] LDL CHOLESTEROL 154(H) <=130 mg/dL 11/29/2023 5:31 PM FITTER MECHANIC [facility] VLDL CHOLESTEROL 36(H) <=30 mg/dL 11/29/2023 5:31 PM FITTER MECHANIC [facility] PROVIDER ORDERED STATUS RANDOM 11/29/2023 5:31 PM FITTER MECHANIC [facility] Blood BLOOD SPECIMEN / Unknown Venipuncture / Unknown 11/29/2023 9:28 AM FITTER MECHANIC 11/29/2023 9:29 AM FITTER MECHANIC Leonie [employer] CHEMISTRY [facility] [address] [place] [address], * HEMOGLOBIN (11/29/2023 9:28 AM FITTER MECHANIC) HEMOGLOBIN 13.8 12.0 - 16.0 g/dL 11/29/2023 9:32 AM FITTER MECHANIC [facility] MCV 86 80 - 100 fL 11/29/2023 9:32 AM FITTER MECHANIC [facility] Blood BLOOD SPECIMEN / Unknown Venipuncture / Unknown 11/29/2023 9:28 AM FITTER MECHANIC 11/29/2023 9:29 AM FITTER MECHANIC [employer] HEMATOLOGY [facility] [address] [place] [address], from Last 3 Months Advance Directives Latest Code Status on File Code Status Date Activated Date Inactivated Comments Full Code 07/21/2022 6:53 AM 07/24/2022 5:32 PM Question Answer Comments Code Status Discussion: Not Discussed Code Status History Code Status Date Activated Date Inactivated Comments Full Code 09/02/2008 5:17 AM 09/02/2008 1:33 PM Care Teams Evaporator Operator Relationship Specialty Start Date End Date Leonie Orr DO [address] [place] [address] PCP - General Internal Medicine 12/02/20 Jean Chang MD [address] [place] [address] Provider Surgery - Urology 11/30/[address] [place] [address] Passenger Car Cleaning Supervisor 12/16/22
--- OUTSIDE RECORDS SUMMARY | 2023-12-20 17:48 | XMS_ITS | Data Portability ---
Author Name Unknown Address [address] [place] [address] Phone [phone] Organization [facility], [facility] Address [address] [facility] [address] [place] [address] Care Team Providers Care Call Out Operator Name Role Phone ALBERTO WYNN Primary Care Provider Assessment No assessment recorded. Plan of Treatment Reminders Order Date Submit Date Provider Last Modified By Organization Details Last Modified Time Details Appointments None recorded. Lab urinalysis , dipstick 2022 023 [email or web address] [facility], [address], [place], [address], 3 10:36:50 Referral None recorded. Procedures None recorded. Surgeries None recorded. Imaging None recorded. Medication Orders None recorded. Patient TargetsNo targets recorded. Patient Instructions Encounter Date Encounter Id Patient Instructions Last Modified By Organization Details Last Modified Time 02/28/[id number] recent CT report and call if anything concerning. [email or web address] Not available 02/28/2023 10:48:41 10/04/2022 [id number] willp plan rtc 1 year for KUB. stone was 80% ca/oxalate and 20% ca/phosphate. [email or web address] Not available 10/04/2022 12:20:01 Reason for Referral None Reported. Results Created Date Observation Date Name Description Value Unit Range Abnormal Flag LastModifiedBy Organization Detail LastModifiedTime 02/29/20 23 02/28/2023 urina lysis , dipst ick Color-Status Yellow Not Available [facility] [address], [place], [address], 02/28/2023 10:35:56 02/29/20 23 02/28/2023 urina lysis , dipst ick Clarity-Stat us Clear Not Available [facility] [address], [place], [address], 02/28/2023 10:35:56 02/29/20 23 02/28/2023 urina lysis , dipst ick Glucose-Stat us Negati ve Not Available [facility] [address], [place], [address], 02/28/2023 10:35:56 02/29/20 23 02/28/2023 urina lysis , dipst ick Bilirubin-St atus Negati ve Not Available [facility] [address], [place], [address], 02/28/2023 10:35:56 02/29/20 23 02/28/2023 urina lysis , dipst ick Ketones-Stat us Negati ve Not Available [facility] [address], [place], [address], 02/28/2023 10:35:56 02/29/20 23 02/28/2023 urina lysis , dipst ick Sp Random Lake-Stat us >=1.03 0 Not Available [facility] [address], [place], [address], 02/28/2023 10:35:56 02/29/20 23 02/28/2023 urina lysis , dipst ick pH-Status 5.5 Not Available [facility] [address], [place], [address], 02/28/2023 10:35:56 02/29/20 23 02/28/2023 urina lysis , dipst ick Urobilinogen -Status 0.2 Not Available [facility] [address], [place], [address], 02/28/2023 10:35:56 02/29/20 23 02/28/2023 urina lysis , dipst ick Nitrates-Sta tus negati ve Not Available [facility] [address], [place], [address], 02/28/2023 10:35:56 02/29/20 23 02/28/2023 urina lysis , dipst ick Blood-Status Negati ve Not Available [facility] [address], [place], [address], 02/28/2023 10:35:56 02/29/20 23 02/28/2023 urina lysis , dipst ick Leuko-Status Negati ve Not Available [facility] [address], [place], [address], 02/28/2023 10:35:56 02/29/20 23 02/28/2023 urina lysis , dipst ick Specimen Type Voided Not Available [facility] [address], [place], [address], 02/28/2023 10:35:56 03/04/20 22 03/03/2022 XR, urogr am, retro grade No observ ation record ed. Not Available 2022 10:01:43 07/23/20 22 07/22/2022 imagi ng/di agnos tic resul t No observ ation record ed. [email or web address] Not Available 07/23/2022 09:59:12 02/29/20 23 01/24/2023 US, abdom en, compl ete No observ ation record ed. [email or web address] Not Available 02/28/2023 09:54:41 02/29/20 23 01/19/2023 CT, abdom en + pelvi s, w/o contr ast No observ ation record ed. [email or web address] Not Available 02/28/2023 12:41:55 02/29/20 23 01/19/2023 CT, chest , w/ contr ast No observ ation record ed. [email or web address] Not Available 02/28/2023 12:41:55 Result Notes None recorded. Procedures Surgical History Date Name Laterality Status Provider Name and Address Organization Details Recorded Time 07/21/20 22 PERCUTANEOUS NEPHROLITHOTOMY (SURG) completed Gissel Karen null, [facility] 2022 10:01:43 03/03/20 22 CYSTOSCOPY, WITH URETEROSCOPY, WITH LITHOTRIPSY, WITH INSERTION OF URETERAL STENT (SURG) completed Gissel Karen null, [facility] 2022 10:01:43 12/01/19 16 colonoscopy completed Precious Banegas null, [facility] 10/20/2023 16:43:10 01/24/20 13 Cystoscopy completed Gissel Karen null, [facility] 2022 10:01:44 01/24/20 13 Insert bladder catheter completed Gissel Sedro-Woolley null, [facility] 2022 10:01:44 09/02/20 08 Cystoscopy completed Gissel Karen null, [facility] 2022 10:01:44 06/19/20 08 Cystoscopy completed Gissel Karen null, [facility] 2022 10:01:44 05/08/20 08 [facility] 04/17/20 08 Cystoscopy completed Gissel Karen null, [facility] 2022 10:01:44 Total knee arthroplasty completed Gissel Karen null, [facility] 2022 10:01:44 Total hysterectomy completed Gissel Sedro-Woolley null, [facility] 2022 10:01:44 Exam of vagina w/scope completed Gissel Sedro-Woolley null, [facility] 2022 10:01:44 Removal of gallbladder completed Gissel Karen null, [facility] 2022 10:01:44 Imaging Results Imaging Date Name Status LastModified by [facility] Details LastModified Time 03/03/2022 XR, urogram, retrograde completed Information not available 2022 10:01:43 07/22/2022 imaging/diagnos tic result completed [email or web address] Information not available 07/23/2022 09:59:12 01/24/2023 US, abdomen, complete completed Information not available 02/28/2023 09:54:41 01/19/2023 CT, abdomen + pelvis, w/o contrast completed Information not available 02/28/2023 12:41:55 01/19/2023 CT, chest, w/ contrast completed [email or web address] Information not available 02/28/2023 12:41:55 Procedure Notes None recorded. Medical Equipment None Reported. Allergies Allergen ID Allergen Name Allergen Category Reaction Reaction Severity Criticality Documentation Date Start Date Code Code System Note Provider Name and Address Organization Details Recorded Time 695232 latex environme nt,medica tion Not available Not available Not available 04/23/2020 88103 91 RxNorm Gissel Graf blevins [facility] 2 10:01:43 981260 oxycodone medicatio n Not available Not available Not available 04/23/2020 7804 RxNorm Jyothi Laura blevins [facility] 3 10:31:30 801999 morphine sulfate medicatio n Not available Not available Not available 04/23/2020 02736 RxNorm Gissel Jeromerichard blevins [facility] 2 10:01:43 312865 acetamino phen / hydrocodo ne medicatio n nausea severe Not available 02/28/2023 37585 2 RxNorm Jyothi Laura felicity [facility] 3 10:31:55 Medications Name Sig Start [...] Updated DateTime 10/04/2022 157.48 cm 31.1 kg/m2 34620.7 g Ulysses Yeung MD [address] [facility] [address], [place], [address], [facility] 10/04/2022 12:09:52 Date Recorded Body height Body mass index (BMI) Body weight Provider Name and Address Organization Details Last Updated DateTime 02/28/2023 157.48 cm 32.6 kg/m2 04605.44 g Jyothi blevins [facility] 02/28/2023 10:30:14 Social History Question Answer Notes LastModified by Organizat ion Details LastModified Time Tobacco Smoking Status Former Smoker Jyothi blevins [facility] 02/28/2023 10:34:42 What Is Your Level Of Alcohol Consumption? Occasional [email or web address] Information not available 02/28/2023 What Is Your Level Of Caffeine Consumption? Moderate [email or web address] Information not available 02/28/2023 When Did You Quit Smoking? 16+yearssincel janee [email or web address] Information not available 02/28/2023 Race White Information no t available 2022 Marital Status [email or web address] Informati on not available 04/24/2020 What Was The Date Of Your Most Recent Tobacco Screening? 02/28/2023 [email or web address] Information not available 02/28/2023 Do You Use Any Illicit Or Recreational Drugs? No [email or web address] Information not available 02/28/2023 Has Tobacco Cessation Counseling Been Provided? No [email or web address] Information not available 02/28/2023 How Many Years Have You Smoked Tobacco? 10 [email or web address] Information not available 02/28/2023 Do You Or Have You Ever Used Any Other Forms Of Tobacco Or Nicotine? No [email or web address] Information not available 02/28/2023 Sex: Female Functional Status None recorded. Mental Status None recorded. Family History Relationship Description Onset Age of this Age Resolved Age Notes Notes:Cancer :Grandmother Cancer :Father Diabetes:Aunt Arthritis:Runs in Family Asthma:Runs in Family Medical History Condition Response Other N High Blood Pressure Y Kidney Stones Y Depression N Lung Disease N Diabetes N Sexually Transmitted Infection N Bleeding Disorder N Cancer N High Cholesterol Y Heart Disease N Gynecological HistoryNo gynecological history recorded. Obstetrics History GPAL:G 0 P 0 0 0 0 Immunizations Vaccine Type Date Status Provider Name and Address Organization Details Recorded Time pneumococcal polysaccharide PPV23 05/24/2019 completed Jyothihortensia blevins [facility] 02/28/2023 10:30:33 Tdap 04/29/2008 [facility] 05/26/2023 16:42:40 Novel [id number], all formulations 10/10/2009 [facility] 05/26/2023 16:42:41 Influenza, seasonal, injectable 11/19/2011 completed Vanida Nuzhat felicity [facility] 05/26/2023 16:42:41 Influenza, seasonal, injectable 11/27/2012 completed Vanida Nuzhat null, [facility] 05/26/2023 16:42:41 Influenza, seasonal, injectable 12/18/2010 completed Vanida Nuzhat null, [facility] 05/26/2023 16:42:41 Influenza, seasonal, injectable 09/11/2007 completed Vanida Nuzhat null, [facility] 05/26/2023 16:42:41 Influenza, seasonal, injectable 09/24/2005 completed Vanida Nuzhat null, [facility] 05/26/2023 16:42:41 Td (adult), 5 Lf tetanus toxoid, preservative free, adsorbed 09/24/2005 completed Vanida Nuzhat null, [facility] 05/26/2023 16:42:41 Td (adult), 2 Lf tetanus toxoid, preservative free, adsorbed 11/01/2017 completed Vanida Nuzhat null, [facility] 05/26/2023 16:42:41 influenza, injectable, quadrivalent, preservative free 08/23/2018 completed Vanida Nuzhat null, [facility] 05/26/2023 16:42:41 influenza, injectable, quadrivalent, preservative free 10/10/2009 completed Vanida Nuzhat null, [facility] 05/26/2023 16:42:41 influenza, injectable, quadrivalent, preservative free 11/01/2017 completed Vanida Nuzhat null, [facility] 05/26/2023 16:42:41 Past Encounters Encounter ID Performer Location Encounter Start Date Encounter Closed Date Diagnosis/Indication [id number] MD [facility] [address] [place] [address] 10/04/2022 11:38:45 10/06/2022 12:47:05 Kidney stone [id number] Ulysses Yeung MD [facility] [address] [place] [address] 02/28/2023 10:17:41 03/04/2023 12:56:15 Kidney stone Health Concerns Section Related Observation LastModified by Organization Detai ls LastModified Time None Recorded Concern Status LastModified by Organization Details LastModified Time None Recorded Advance Directives Directive None Recorded Payers Encounter Date Sequence Insurance Name Policy Number Policy Deshpande Covered Member ID Deshpande Member ID Guarantor Name 02/28/2023 1 [employer] [id number] Hannah Robb [id number] Hannah Robb 10/04/2022 1 [employer] [id number] Hannah Robb [id number] Hannah Robb Notes Date Note Type Note Provider Name and Address Organization Details Recorded Time 10/04/2022 text/html HPI Notes: follow up Right [facility] on 07/21. no trouble since then. has a little tethering sensation at times. urine has looked clear. Ulysses Yeung MD [address] [place] [address],[address] [place] [address], [address], [facility] 10/04/2022 12:20:57 02/28/2023 text/html HPI [...] UA crystal clear today. Ulysses Yeung MD [address] [place] [address],[address], [place], [address], [facility] 02/28/2023 10:49:45 OBGyn Episode No OBEpisode recorded.
--- NOTE | 2023-12-20 18:00 | CRLHL7_ITS ---
For Patients: As a result of the Cures Act, medical imaging exams and procedure reports are released immediately into your electronic medical record. You may view this report before your referring provider. If you have questions, please contact your health care provider. INDICATION: Right leg pain and swelling s/p rt TKA COMPARISON: X-ray 12/08/2023 TECHNIQUE: A compression venous ultrasound exam was performed of the right lower extremity using castro-scale imaging, color Doppler and spectral Doppler analysis. FINDINGS: Sonographic imaging of the right lower extremity demonstrates normal compressibility and color Doppler venous blood flow within the common femoral vein, deep femoral vein, and the proximal greater saphenous vein. Within the thigh, the femoral vein is patent and compressible. At a lower level, the popliteal and posterior tibial veins also show normal compressibility and color Doppler venous blood flow. Limited imaging of the contralateral groin demonstrates a normal spectral waveform and color Doppler venous blood flow within the left common femoral vein. Incidental soft tissue calcification again noted in the posterior medial knee. Fluid collection is present within the anterior knee soft tissues measuring 8.8 x 1.3 x 4.8 cm. IMPRESSION: No DVT. Postop fluid collection anteriorly measuring 8.8 x 1.3 x 4.8 cm has the appearance of seroma. Incidental calcification posteriorly unchanged. Dictated by Bennett Talley MD @ 12/21/2023 11:30:10 AM (Electronically Signed)
== END 2023-12-20 17:46 | disposition home or self-care (01) ==
LOC: US 17:46
PROVIDERS: PCP Family Medicine; Visit Provider Physician Assistant
DX: M79.604 Pain in right leg (principal); M25.461 Effusion, right knee; Z96.651 Presence of right artificial knee joint
CPT/HCPCS: 93971

== ENCOUNTER 2024-08-13 06:19 | Day surgery (SDC) | payer BC, SELFPAY ==
[2024-08-13] VITALS (7 sets, daily range): BP systolic 146–172; BP diastolic 75–94; PULSE 68–76; RESP 14–16; TEMP 36.2–36.3; O2SAT 94–98; BMI 32.1
--- OUTSIDE RECORDS SUMMARY | 2024-08-13 06:22 | XMS_ITS | Data Portability ---
Author Organization [place] - [facility] Address [address] [place] [address] Care Team Providers Care Animal Care Service Worker Name Role Phone KINGSLEY ALBERTO Primary Care Provider [phone] Assessment No assessment recorded. Plan of Treatment Reminders Order Date Submit Date Provider Last Modified By Organization Details Last Modified Time Details Appointments None recorded. Lab urinalysis , dipstick 2022 023 [email or web address] [facility], [address], [place], [address], 3 10:36:50 Referral None recorded. Procedures None recorded. Surgeries None recorded. Imaging None recorded. Medication Orders None recorded. Patient TargetsNo targets recorded. Patient Instructions Encounter Date Encounter Id Patient Instructions Last Modified By Organization Details Last Modified Time 10/04/2022 [id number] willp plan rtc 1 year for KUB. stone was 80% ca/oxalate and 20% ca/phosphate. [email or web address] Not available 10/04/2022 12:20:01 02/28/[address] [id number] recent CT report and call if anything concerning. Not available 02/28/2023 10:48:41 Reason for Referral None Reported. Results Created Date Observation Date Name Description Value Unit Range Abnormal Flag Note LastModifiedBy Organization Detail LastModifiedTime 02/29/20 23 02/28/2023 urina lysis , dipst ick Color-Status Yellow Not Available [facility] [address], [place], [address], 02/28/2023 10:35:56 02/29/20 23 02/28/2023 urina lysis , dipst ick Clarity-Stat us Clear Not Available [facility] [address], [place], [address], 02/28/2023 10:35:56 02/29/20 23 02/28/2023 urina lysis , dipst ick Glucose-Stat us Negati ve Not Available [facility] [address], [place], [address], 02/28/2023 10:35:56 02/29/20 23 02/28/2023 urina lysis , dipst ick Bilirubin-St atus Negati ve Not Available [facility] [address], [place], [address], 02/28/2023 10:35:56 02/29/20 23 02/28/2023 urina lysis , dipst ick Ketones-Stat us Negati ve Not Available [facility] [address], [place], [address], 02/28/2023 10:35:56 02/29/20 23 02/28/2023 urina lysis , dipst ick Sp Chaseley-Stat us >=1.03 0 Not Available [facility] [address], [place], [address], 02/28/2023 10:35:56 02/29/20 23 02/28/2023 urina lysis , dipst ick pH-Status 5.5 Not Available [facility] [address], [place], [address], 02/28/2023 10:35:56 02/29/20 23 02/28/2023 urina lysis , dipst ick Urobilinogen -Status 0.2 Not Available [facility] [address], [place], [address], 02/28/2023 10:35:56 02/29/20 23 02/28/2023 urina lysis , dipst ick Nitrates-Sta tus negati ve Not Available [facility] [address], [place], [address], 02/28/2023 10:35:56 02/29/20 23 02/28/2023 urina lysis , dipst ick Blood-Status Negati ve Not Available [facility] [address], [place], [address], 02/28/2023 10:35:56 02/29/20 23 02/28/2023 urina lysis , dipst ick Leuko-Status Negati ve Not Available [facility] [address], [place], [address], 02/28/2023 10:35:56 02/29/20 23 02/28/2023 urina lysis , dipst ick Specimen Type Voided Not Available [facility] [address], [place], [address], 02/28/2023 10:35:56 02/29/20 23 01/24/2023 US, abdom en, compl ete No observ ation record ed. [email or web address] Not Available 2022 09:54:41 02/29/2001/19/2023 CT, abdom en + pelvi s, w/o contr ast No observ ation record ed. Not Available 02/28 12:41:55 02/29/20 23 01/19/2023 CT, chest , w/ contr ast No observ ation record ed. [email or web address] Not Available 02/28 12:41:55 Result Notes None recorded. Procedures Surgical History Date Name Laterality Status Provider Name and Address Organization Details Recorded Time 07/21/20 PERCUTANEOUS NEPHROLITHOTOMY (SURG) completed Gissel Jones [facility] 2022 10:01:43 03/03/20 22 CYSTOSCOPY, WITH URETEROSCOPY, WITH LITHOTRIPSY, WITH INSERTION OF URETERAL STENT (SURG) completed [facility] 2022 10:01:43 12/01/19 16 colonoscopy completed Precious Banegas [facility] 10/20/2023 16:43:10 01/24/20 13 Cystoscopy completed [facility] 2022 10:01:44 01/24/20 13 Insert bladder catheter completed [facility] 2022 10:01:44 09/02/20 08 Cystoscopy completed [facility] 2022 10:01:44 06/19/20 08 Cystoscopy completed [facility] 2022 10:01:44 05/08/20 08 Repair bladder/vagina lesion completed [facility] 2022 10:01:44 04/17/20 08 Cystoscopy completed [facility] 2022 10:01:44 Total knee arthroplasty completed [facility] 2022 10:01:44 [facility] 10:01:44 Exam of vagina w/scope completed [facility] 2022 10:01:44 Removal of gallbladder completed [facility] 2022 10:01:44 Imaging Results Imaging Date Name Status LastModified by Organiz ation Details LastModified Time 01/24/2023 US, abdomen, complete completed Information not available 02/28/2023 09:54:41 01/19/2023 CT, abdomen + pelvis, w/o contrast completed [email or web address] Information not available 02/28/2023 12:41:55 01/19/2023 CT, chest, w/ contrast completed [email or web address] Information not available 02/28/2023 12:41:55 Procedure Notes None recorded. Medical Equipment None Reported. Allergies Allergen ID Allergen Name Allergen Category Reaction Reaction Severity Criticality Documentation Date Start Date Code Code System Note Provider Name and Address Organization Details Recorded Time 049235 latex environme nt,medica tion Not available Not available Not available 04/23/2020 65105 91 RxNorm Gissel Graf blevins [facility] 2 10:01:43 895977 oxycodone medicatio n Not available Not available Not available 04/23/2020 7804 RxNorm Jyothi blevins [facility] 3 10:31:30 136728 morphine sulfate medicatio n Not available Not available Not available 04/23/2020 42117 RxNorm Gissel blevins [facility] 2 10:01:43 867441 acetamino phen / hydrocodo ne medicatio n nausea severe Not available 02/28/2023 37494 2 RxNorm Jyothi blevins [facility] 3 10:31:55 Medications Name Sig Start [...] Updated DateTime 10/04/2022 157.48 cm 31.1 kg/m2 20186.7 g Ulysses Yeung MD [address] [facility] [address], [place], [address] 10/04/2022 12:09:52 Date Recorded Body height Body mass index (BMI) Body weight Provider Name and Address Organization Details Last Updated DateTime 02/28/2023 157.48 cm 32.6 kg/m2 91787.44 g Jyothi Sanchez [facility] 02/28/2023 10:30:14 Social History Question Answer Notes LastModified by Organizat ion Details LastModified Time Tobacco Smoking Status Former Smoker Jyothi blevins [facility] 02/28/2023 10:34:42 What Is Your Level Of Alcohol Consumption? Occasional [email or web address] Information not available 02/28/2023 What Is Your Level Of Caffeine Consumption? Moderate [email or web address] Information not available 02/28/2023 When Did You Quit Smoking? 17+yearssincel astcigarette [email or web address] Information not available 02/28/2023 Race White Information no t available 2022 Marital Status [email or web address] Informati on not available 04/24/2020 What Was The Date Of Your Most Recent Tobacco Screening? 02/28/2023 [email or web address] Information not available 02/28/2023 Do You Use Any Illicit Or Recreational Drugs? No [email or web address] Information not available 02/28/2023 Has Tobacco Cessation Counseling Been Provided? No [email or web address] Information not available 02/28/2023 How Many Years Have You Smoked Tobacco? 10 [email or web address] Information not available 02/28/2023 Do You Or Have You Ever Used Any Other Forms Of Tobacco Or Nicotine? No [email or web address] Information not available 02/28/2023 Sex: Unknown Functional Status None recorded. Mental Status None recorded. Family History Nothing Reported Notes:Cancer :Grandmother Cancer :Father Diabetes:Aunt Arthritis:Runs in Family Asthma:Runs in Family Medical History Condition Response Other N High Blood Pressure Y Kidney Stones Y Depression N Sexually Transmitted Infection N Cancer N Bleeding Disorder N Lung Disease N High Cholesterol Y Diabetes N Heart Disease N Gynecological HistoryNo gynecological history recorded. Obstetrics History GPAL:G 0 P 0 0 0 0 Immunizations Vaccine Type Date Status Provider Name and Address Organization Details Recorded Time pneumococcal polysaccharide PPV23 05/24/2019 [facility] 10:30:33 Tdap 04/29/2008 completed Fede Noland [facility] 05/26/2023 16:42:40 Novel Ajigvtcoo-[id number], all formulations 10/10/2009 [facility]20[facility] 16:42:41 Influenza, split virus, trivalent, preservative 11/19/2011 [facility]2023 16:42:41 Influenza, split virus, trivalent, preservative 11/27/2012 [facility]2023 16:42:41 Influenza, split virus, trivalent, preservative 12/18/2010 [facility]2023 16:42:41 Influenza, split virus, trivalent, preservative 09/11/2007 [facility]2023 16:42:41 Influenza, split virus, trivalent, preservative 09/24/2005 [facility]2023 16:42:41 Td (adult), 5 Lf tetanus toxoid, preservative free, adsorbed 09/24/2005 [facility]2023 16:42:41 Td (adult), 2 Lf tetanus toxoid, preservative free, adsorbed 11/01/2017 completed Vanida Nuzhat null, [facility] 05/26/2023 16:42:41 Influenza, split virus, quadrivalent, PF 08/23/2018 completed Vanida Nuzhat null, [place] [facility] 05/26/2023 16:42:41 Influenza, split virus, quadrivalent, PF 10/10/2009 completed Vanida Nuzhat null, [facility] 05/26/2023 16:42:41 Influenza, split virus, quadrivalent, PF 11/01/2017 completed Vanida Nuzhat null, [facility] 05/26/2023 16:42:41 Past Encounters Encounter ID Performer Location Encounter Start Date Encounter Closed Date Diagnosis/Indication Diagnosis SNOMED-CT Code Diagnosis ICD10 Code [id number] Ulysses Yeung MD [facility] [address] [place] [address] 10/04/2022 11:38:45 10/06/2022 12:47:05 Kidney stone 12198349 N20.0 [id number] MD MARCO A [facility] [address] [place] [address] 02/28/2023 10:17:41 03/04/2023 12:56:15 Kidney stone 28609850 N20.0 Health Concerns Section Related Observation LastModified by Organization Detai ls LastModified Time None Recorded Concern Status LastModified by Organization Details LastModified Time None Recorded Advance Directives Directive None Recorded Payers Encounter Date Sequence Insurance Name Policy Number Policy Deshpande Covered Member ID Deshpande Member ID Guarantor Name 10/04/2022 1 [facility] [employer] - MEDICARE COST [id number] Hannah Robb [id number] Hannah Robb 02/28/2023 1 [employer] COST [id number] Hannah Robb [id number] Hannah Robb Notes Date Note Type Note Provider Name and Address Organization Details Recorded Time 10/04/2022 text/html HPI Notes: follow up Right [facility] on 07/21. no trouble since then. has a little tethering sensation at times. urine has looked clear. Ulysses Yeung MD [address] [facility] [facility],[address], [place], [address], [facility] 10/04/2022 12:20:57 02/28/2023 text/html HPI Notes: [...] UA crystal clear today. Ulysses Yeung MD [address] [facility] [facility],[address], [place], [address], [facility] 02/28/2023 10:49:45 OBGyn Episode No OBEpisode recorded.
--- OUTSIDE RECORDS SUMMARY | 2024-08-13 06:22 | XMS_ITS | Clinical Summary ---
Author Organization [employer] [facility] Address [place], [place] [address] Care Team Providers Care Clinching Machine Operator Name Role Phone Leonie Orr DO Primary Care Provider [phone] Jean Chang MD Unavailable [phone] Dg Garza Unavailable Allergies Active Allergy Reactions [...] by mouth every 6 hours if needed. Active acetaminophen (TYLENOL) 325 mg tabletIndications:K liset harrington Take 1-2 Tablets (325-650 mg) by mouth every 4 hours if needed for Pain (For mild pain.). Max acetaminophen dose: 4000mg in 24 hrs. 30 Tablet 07/23/2022 Active triamcinolone (ARISTOCORT; KENALOG) 0.1 % creamIndications:De rmatitis Apply topically to affected area(s) two times daily. 80 g 11/29/2023 Active clobetasol (TEMOVATE) 0.05 % ointment 04/25/2024 Active losartan (COZAAR) 25 mg tabletIndications:P rimary hypertension Take 1 Tablet (25 mg) by mouth once daily. 90 Tablet 3 07/31/2024 Active Active Problems Problem Noted Date Diagnosed [...] tunnel syndrome 07/17/2021 Prednisone adverse reaction 03/11/2015 Overview (03/11/2015): Kia, agitation Hyperplastic colon polyp 04/18/2014 Overview (04/18/2014): Routine colonoscopy 2007 Lichen simplex chronicus 01/02/2010 Adjustment disorder with mixed anxiety and depre ssed mood 07/17/2009 Hx of total knee arthroplasty 06/13/2009 Symptomatic menopausal or female climacteric sta lamin 09/23/2008 Mixed hyperlipidemia 09/11/2007 Overview (12/21/2022): Prior to 2004 tried atorvastatin: Good control of symptoms, terrible myalgias 2004: Tried Zocor with mild response in cholesterol, [...] Encounters Date Type Department Care Team Description 08/08/2024 Travel 08/06/[address] [address] Leonie Orr, Referral (DOS: 03-21-24 and 08-13-24) 08/06/[address] [address] Leonie Orr, Concerns (losartan (COZAAR) 25 mg tablet/) 08/03/[address] [address] Chivo Delatorre DPM Form 07/31/2024 3:25 PM CDT Preop Visit [address] [address] Leonie Orr, Preoperative Exam (08/13/24 - [facility] - Dr. Delatorre - Bunionectomy) 07/31/2024 Travel 07/18/2024 9:15 AM CDT Ancillary Procedure [address] [address] 07/18/2024 8:45 AM CDT Office Visit [address] [address] Chivo Delatorre DPM Consult (Right foot bunion ) 07/18/2024 Travel 06/29/[address] [address] Mamadou Forrest MD Questions 05/28/[address] [address] Leonie Orr, DO Referral (Physical Therapy) from Last 3 Months Immunizations Name Administration Dates Next Due DTaP 04/29/2008 Influenza A (H1N1), Inactivated 10/10/2009 Influenza A (H1N1), Inactiva shantal (Age >=3 Years) 10/10/2009 Influenza Virus, Unspecified 09/11/2007,09/24/20 Influenza, IIV3 (Age >=3 years) 11/27/19 13,11/19/2011,12/18/2010,2006,09/24/2005 [...] of Communication with Friends and Fami ly 0 02/17/2024 Financial Resource Strain Answer Date R ecorded Difficulty of Paying Living Expenses 3 02/17/2024 Difficulty of Paying Living Expenses Not on file 02/17/2024 Food Insecurity Answer Date Recorded Worried About Running Out of Food in the Last Ye ar 1 02/17/2024 Transportation Needs Answer Date Record ed Lack of Transportation (Medical) 1 02/17/2024 Housing Stability Answer Date Recorded Unable to Pay for Housing in the Last Year 1 02/17/2024 Sex and Gender Information Value Date Recorded Sex Assigned at Not on file Gender Identity Not on file Sexual Orientation Not on file Obstetrics History Para Term AB IAB SAB Ectopic Multiple Livin g Live Births 5 5 5 0 0 0 0 0 5 Date Outcome GA Total Labor Labor/2nd/3rd Weight Sex Type Anes PTL Belle A1 A5 Name Clin Term Term Term Term Term Comments 3 vaginal deliveries and 2 C -section deliveries Last Filed Vital Signs Vital Sign Reading Time Taken Comments Blood Pressure 143/74 07/31/2024 4:06 PM CDT Pulse 74 07/31/2024 3:35 PM CDT Temperature 36.8 ??C (98.3 ??F) 05/02/2024 8:15 AM CD T Respiratory Rate 18 05/01/2023 9:52 AM CDT Oxygen Saturation 98% 07/31/2024 3:35 PM CDT Inhaled Oxygen Concentration - - Weight 79.7 kg (175 lb 9.6 oz) 07/31/2024 3:35 P M CDT Height 158.8 cm (5' 2.5) 02/14/2023 7:32 AM CDT Body Mass Index 31.61 02/14/2023 7:32 AM CDT Plan of Treatment Upcoming Encounters Date Type Department Care Team (Late st Contact Info) Description 08/13/2024 7:30 AM CDT Office Visit [facility] at [address] [phone] Chivo Delatorre DPM [address] [place] [address] 08/15/2024 11:15 AM CDT Office Visit [facility] [address] [place] [address] Chivo Delatorre DPM [address] [place] [address] 08/29/2024 10:15 AM CDT Office Visit [facility] [address] [place] [address] Chivo Delatorre DPM [address] [place] [address] 09/03/2024 9:20 AM CDT Office Visit [facility] [address] [place] [address] Leonie Orr DO [address] [place] [address] 09/26/2024 10:00 AM CATALOG SPECIALIST Office Visit [facility] [address] [place], [place] [phone] Chivo Delatorre DPM [address] [place], [place] [id number] Health Maintenance Due Date Last Done Comments Zoster (shingles) series for age 50+ (1 of 2) 2011 Mammogram for age 45-75 04/25/2015 04/25/20 14, 09/13/2011, 10/03/2007 Pneumococcal series for age 6-64 (2 of 2 - PCV) 05/24/2020 05/24/2019 Depression screening for age 12+ 11/17/2021 11/17/19, 12/25/2015 BMI (ht and wt on same day) for age 18+ 02/15/2024 02/14/2023, 02/26/2022, 12/23/2021, Additional history exists COVID-19 vaccine series ( season) 2024 Influenza for age 50-64 07/15/2024 08/23/20 18, 11/01/2017, 11/27/2012, Additional history exists Colonoscopy through age 75 12/01/202512/01, 12/01/2015, 01/05/2011, Additional history exists Tetanus booster 11/01/2027 11/01/2017, 10/14, 04/29/2008, Additional history exists Lipids for age 45-75 11/29/2028 11/29/2023, 06/08/2023, 11/22/2022, Additional history exists Tdap Completed 04/29/2008 HIV for age 15-65 Completed 08/26/2011 Hepatitis C screening for ag e 18-79 Completed 08/26/2011 Procedures Procedure Name Priority Date/Time Associated Diagnosis Comments BASIC METABOLIC PANEL Routine 07/31/2024 4:23 PM CDT Primary hypertension XR FOOT 3 VIEWS RIGHT Routine 07/18/2024 8:53 AM CDT Bunion of right foot LIPID PANEL W REFLEX MEASURED LDL Routine 11/29/2023 9:28 AM CATALOG SPECIALIST Mixed hyperlipidemia COLONOSCOPY SCREENING Routine 12/01/2015 Colonic polyp XR MAMMO BILAT SCREEN FFDM (IA) Routine 04/25/2014 11:27 AM CDT Routine [facility] ANTI HIV 1/2 Routine 08/26/2011 9:52 AM CDT Hx-cont/exps haz bdy fld ANTI HCV Routine 08/26/2011 9:52 AM CDT Hx-cont/exps haz bdy fld from Last 3 Months or Most Recently Relevant to Health Maintenance Results * BASIC METABOLIC PANEL (07/31/2024 4:23 PM CDT) Pathologist [facility] GLUCOSE 99 65 - 99 mg/dL [facility] Comment: ? Fasting reference interval UREA NITROGEN (BUN) 25 7 - 25 mg/dL [facility] CREATININE 1.05 0.50 - 1.05 mg/dL [facility] EGFR 60 > OR = 60 mL/min/1. 73m2 [facility] BUN/CREATININE RATIO SEE NOTE: 6 22 (calc) [facility] Comment: ?? Not Reported: BUN and Creatinine are within ?? reference range. ? SODIUM 141 135 - 146 mmol/L [facility] POTASSIUM 4.0 3.5 - 5.3 mmol/L [facility] CHLORIDE 105 98 - 110 mmol/L [facility] CARBON DIOXIDE 25 20 - 32 mmol/L [facility] ELECTROLYTE BALANCE 11 7 - 17 mmol/L (calc) [facility] CALCIUM 9.6 8.6 - 10.4 mg/dL [facility] Blood BLOOD SPECIMEN / Unknown 07/31/2024 4:23 PM CDT 07/31/2024 4:25 PM CDT Leonie Orr CHEMISTRY [facility] [address] [place] [address], [facility] [address] [place] [address] * XR FOOT 3 VIEWS RIGHT (07/18/2024 8:53 AM CDT) Anatomical Region Laterality Modality FEET, FOOT R Computed Radiogr aphy 07/18/2024 1:01 PM CDT Impressions 07/18/2024 1:01 PM CDT 1. No acute osseous injuries or abnormalities are noted. Dictated by Danny Starr MD @ 07/18/2024 1:01:25 PM Dictated by: Danny Starr MD @ 07/18/2024 13:01:32 (Electronically Signed) Narrative 07/18/2024 1:01 PM CDT For Patients: ??As a result of the Century Cures Act, medical imaging exams and procedure reports are released immediately into your electronic medical record. ??You may view this report before your referring provider. ??If you have questions, please contact your health care provider. INDICATION: Bunion of right foot TECHNIQUE: Foot radiograph 3 views right COMPARISON: None FINDINGS: Bone: No acute fractures or aggressive bone lesions are identified. ??The oblique view is limited by geometric distortions resulting from angulation of the gantry tube instead of the foot. Moderate metatarsus primus varus hallux valgus is noted with Hallux angle measuring 30 degrees. Mild bone proliferation seen over the medial eminence of 1st metatarsal head. A small calcaneal enthesophyte is seen. Moderate diffuse osteopenia is present. 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 Mild osteoarthritis of the talonavicular joint is noted. No significant ankle effusion is seen. Soft tissue: Unremarkable. No radiopaque foreign bodies are seen. Procedure Note Danny Starr MD - 07/18/2024 For Patients: As a result of the Cures Act, medical imagingexams and procedure reports are released immediately into your electronicmedical record. You may view this report before your referring provider.If you have questions, please contact your health care provider. INDICATION: Bunion of right foot TECHNIQUE: Foot radiograph 3 views right COMPARISON: None FINDINGS: Bone: No acute fractures or aggressive bone lesions are identified. Theoblique view is limited by geometric distortions resulting from angulationof the gantry tube instead of the foot. Moderate metatarsus primus varushallux valgus is noted with Hallux angle measuring 30 degrees. Mild boneproliferation seen over the medial eminence of 1st metatarsal head. Asmall calcaneal enthesophyte is seen. Moderate diffuse osteopenia ispresent. Joint: Mild osteoarthritis of the 1st metatarsal-phalangeal joint isnoted. Mild osteoarthritis of the talonavicular joint is noted. Nosignificant ankle effusion is seen. Soft tissue: Unremarkable. No radiopaque foreign bodies are seen. IMPRESSION: 1. No acute osseous injuries or abnormalities are noted. Dictated by Danny Starr MD @ 07/18/2024 1:01:25 PM Dictated by: Danny Starr MD @ 07/18/2024 13:01:32 (Electronically Signed) Chivo Delatorre DP GENERAL IMAGING * (ABNORMAL) LIPID PANEL W REFLEX MEASURED LDL (11/29/2023 9:28 AM CATALOG SPECIALIST) CHOLESTEROL,TOTAL 247(H) 100 - 199 mg/dL 11/29/2023 5:31 PM CATALOG SPECIALIST [facility] Comment: Cholesterol, Total Reference Ranges Desirable <200 mg/dL Borderline 200-239 mg/dL High >=240 mg/dL TRIGLYCERIDES 179(H) <150 mg/dL 11/29/2023 5:31 PM CATALOG SPECIALIST [facility] HDL CHOLESTEROL 57 >40 mg/dL 5:31 PM [facility] NON-HDL CHOLESTEROL 190(H) <145 mg/dl 11/29/2023 5:31 PM [facility] CHOL/HDL RATIO 4.33 <4.50 11/29/2023 5:31 PM [facility] LDL CHOLESTEROL 154(H) <=130 mg/dL 11/29/2023 5:31 PM [facility] VLDL CHOLESTEROL 36(H) <=30 mg/dL 11/29/2023 5:31 PM [facility] PROVIDER ORDERED STATUS RANDOM 11/29/2023 5:31 PM [facility] Blood BLOOD SPECIMEN / Unknown Venipuncture / Unknown 11/29/2023 9:28 AM CATALOG SPECIALIST 11/29/2023 9:29 AM CATALOG SPECIALIST Leonie Orr DO CHEMISTRY [facility] [address] [place] [address], * COLONOSCOPY SCREENING (12/01/2015) Javier Cobb MD GI PROCEDURE ORD * XR MAMMO BILAT SCREEN FFDM (04/25/2014 11:27 AM CDT) Anatomical Region Laterality Modality BREASTS, Breast Left, Breast Right Bilateral Mammography Impressions 04/26/2014 8:20 AM CDT ??There is no radiographic evidence for malignancy. ??Recommend annual mammograms. A lay language report of this examination will be provided to the patient. MAMMOGRAM ASSESSMENT: ??ACR 1 Negative Narrative 04/26/2014 8:20 AM CDT XR MAMMO BILAT SCREEN FFDM [G0202.0] CLINICAL HISTORY: ??This is an asymptomatic 53 y.o. patient. INDICATION FOR EXAM: Mammogram Screening. TECHNIQUE: CC & MLO views were obtained. ??This digital study was evaluated with the assistance of Computer-Aided Detection. ?? COMPARISON FILM: Yes 09/15/11 [facility] FINDINGS: ??Mammographically, the breast tissue is almost entirely fat (<25% glandular). ??There are no dominant masses, suspicious micro calcifications or areas of architectural distortion. Procedure Note Deandre Bains MD - 04/26/2014 XR MAMMO BILAT SCREEN FFDM [G0202.0] CLINICAL HISTORY: This is an asymptomatic 53 y.o. patient. INDICATION FOR EXAM: Mammogram Screening. TECHNIQUE: CC & MLO views were obtained. This digital study was evaluatedwith the assistance of Computer-Aided Detection. COMPARISON FILM: Yes 09/15/11 [facility] FINDINGS: Mammographically, the breast tissue is almost entirely fat(<25% glandular). There are no dominant masses, suspicious microcalcifications or areas of architectural distortion. IMPRESSION: There is no radiographic evidence for malignancy. Recommendannual mammograms. A lay language report of this examination will be provided to the patient. MAMMOGRAM ASSESSMENT: ACR 1 Negative Maria Alejandra Mathur MAMMO * ANTI HCV (08/26/2011 9:52 AM CDT) ANTI HCV Non-reacti ve [facility] Blood specimen (specimen) BLOOD SPECIMEN / Unknown 08/26/2011 9:52 AM CDT 08/26/2011 9:47 AM CDT Maria Alejandra Mathur SEND OUTS [facility] [place]NAL ZIP [id number] [address] * ANTI HIV 1/2 (08/26/2011 9:52 AM CDT) ANTI HIV 1/2 Non-reacti ve [facility] Blood specimen (specimen) BLOOD SPECIMEN / Unknown 08/26/2011 9:52 AM CDT 08/26/2011 9:47 AM CDT Maria Alejandra Mathur SEND OUTS [facility] [place] ZIP [id number] [address] from Last 3 Months or Most Recently Relevant to Health Maintenance Advance Directives * Full Code (Latest Code Status on File) Date Activated Date Inactivated Comments 07/21/2022 6:53 AM 07/24/2022 5:32 PM Question Answer Comments Code Status Discussion: Not Discussed * Full Code Date Activated Date Inactivated Comments 09/02/2008 5:17 AM 09/02/2008 1:33 PM Care Teams Clinching Machine Operator Relationship Specialty Start Date End Date Leonie Orr DO [address] [place] [address] PCP - General Internal Medicine 12/02/20 Jean Chang MD [address] [place] [address] Provider Surgery - Urology 11/30/[address] [place] [address] Product Safety Administrator 12/16/22
[2024-08-13] MEDS: SODIUM CHLORIDE 0.9 % (FLUSH) 10 ML SYRINGE IVF (06:58)
[2024-08-13] MEDS: LACTATED RINGERS 1000 ML 1,000 ML 100 ML IV (06:58)
--- NOTE | 2024-08-13 07:15 | CRLHL7_ITS ---
For Patients: As a result of the Century Cures Act, medical imaging exams and procedure reports are released immediately into your electronic medical record. You may view this report before your referring provider. If you have questions, please contact your health care provider. Indication: RIGHT BUNIONECTOMY, ELLA OSTEOTOMY Technique: Three fluoroscopic images of the right foot. Fluoroscopic time 21.2 seconds. IMPRESSION: Fluoroscopic guidance for osteotomies involving the 1st metatarsal and great toe proximal phalanx. Postop changes to the 2nd metatarsal head. Dictated by Bennett Talley MD @ 08/13/2024 9:05:16 AM (Electronically Signed)
[2024-08-13] MEDS: BUPIVACAINE 0.25% 30 ML INJECTION (07:22)
[2024-08-13] MEDS: CEFAZOLIN 2 GM INJ IVP (07:27)
--- NOTE | 2024-08-13 07:35 | W.ANESCHARGE ---
Anesthesia Charges Start Date/Time Anesthesia Start Date: 08/13/24 Anesthesia Start Time: 07:13 Stop Date/Time Anesthesia Stop Date: 08/13/24 Anesthesia Stop Time: 09:18
--- NOTE | 2024-08-13 09:24 | W.PODPROC_ITS ---
Date of Procedure: 08/13/24 Surgeon: Chivo Delatorre DPM Pre-op Diagnosis: 1. Hallux valgus with bunion right 2. metatarsalgia 2nd right Post-op Diagnosis: 1. hallux valgus with bunion right 2. metatarsalgia 2nd right Type of Procedure: 1. bunionectomy by double osteotomy right 2. Aj osteotomy 2nd metatarsal right Indications: patient is in clinic for ongoing pain to her right foot due to bunion and metatarsal pain. She has elected surgical correction. I reviewed the procedure, recovery, expectation potential complications. These include but are not limited to: Poor wound healing, infection, under correction, over correction, nonunion, hardware irritation, nerve injury, potential need for future surgery, deep venous thrombosis, pulmonary embolism, complex regional pain syndrome, possible . She understands risks written consent was obtained. Site was marked. Procedure Description: Patient brought the operating room placed supine position on operating table. IV sedation was initiated local anesthetic injected into the right foot. She was prepped and draped in a sterile fashion. Standard time-out protocol was followed. The right foot was then exsanguinated the tourniquet inflated. Procedure 1: A dorsomedial curvilinear incision was made over the 1st metatarsophalangeal joint. The incision was carried down through skin subcutaneous tissues. A T-shaped capsular incision was made. Capsular tissue reflected away from the 1st metatarsal head. Sagittal saw was used to resect the large medial bony prominence. Blunt dissection was then carried down to the 1st metatarsal space and standard lateral release was performed. The plantar lateral joint capsule, dorsal fibular sesamoidal ligaments and the adductor tendon released. An osteotomy guide was placed the 1st metatarsal head and a long dorsal arm modified Navin osteotomy was performed. Capital fragments transposed laterally and then fixated with two 3.0 mm cannulated screws. C- arm confirmed position. First metatarsal was remodeled with rotary bur. There was still angulation of the distal phalanx at the DIPJ requiring an Alec osteotomy. Incision was extended slightly. Periosteal incision made over the mid shaft of the proximal phalanx. Guide pin placed in the lateral base of the proximal phalanx. An oblique medially based osteotomy performed. Wedge of bone removed. The lateral cortex was left intact. The osteotomy was then closed and fixated with a 3.0 partially-threaded headless screw. C-arm confirmed position. Wound was irrigated with normal sterile saline. Redundant capsular tissue was excised and the capsule repaired with 3-0 Vicryl. Subcutaneous tissues reapproximated with 4-0 Monocryl and skin closed with 4-0 Prolene. Procedure 2: Linear incision was made over the 2nd metatarsophalangeal joint extending onto the metatarsal. Incision was carried down through skin subcutaneous tissues. extensor tendon retracted laterally. Linear capsular incision was made exposing the 2nd metatarsal head. A Ja osteotomy was then performed the capital fragment shortened between 2 and 3 mm. Osteotomy was then fixated with a 2.0 mm twist off screw. The dorsal overhang was removed with a rongeur. Wound irrigated normal sterile saline. Capsule repaired with 4-0 Vicryl. Subcutaneous tissues reapproximated 4-0 Monocryl and skin closed with 4-0 Prolene. C-arm confirmed excellent position. Sterile dressing was applied and the tourniquet was released. Normal capillary fill time returned all digits. She was transferred from OR to PACU vital signs stable and vascular status intact. She will be discharged per Same-day surgery protocol. She is given both verbal and written postop instructions. She is given Percocet for pain. She is weight-bearing as tolerated to the heel with crutches. Follow-up in 2 days. Complications: None apparent. Anesthesia: MAC and local Hemostasis: ankle Estimated blood loss (mL): 2 Implants: [place] Fixos 3.0 cannulated screw x2, Fixos 3.0 cannulated headless screw x1, 2.0 mm twist off screw x1 Specimens: none sent Disposition: same day
[2024-08-13] MEDS: OxyCODONE/APAP 5-325 TABLET PO (09:39)
--- NOTE | 2024-08-13 10:47 | W.ANESCHARGE ---
Anesthesia Charges Start Date/Time Anesthesia Start Date: 08/13/24 Anesthesia Start Time: 07:13 Stop Date/Time Anesthesia Stop Date: 08/13/24 Anesthesia Stop Time: 09:18
== END 2024-08-13 12:20 | disposition home or self-care (01) ==
PROVIDERS: PCP Family Medicine; Visit Provider Podiatrist
PROC: (CPT 28292; principal; 2024-08-13 07:15)
DX: M21.611 Bunion of right foot (principal); M77.41 Metatarsalgia, right foot; M20.11 Hallux valgus (acquired), right foot
CPT/HCPCS: 28299; 28308; 01480; 73620; 76000; A9270; C1713; J0665; J0690; J1100; J2250; J2405; J2704; J3010; J3490; J7120

== ENCOUNTER 2024-12-13 14:47 | Emergency (ER) | payer BC, SELFPAY ==
--- OUTSIDE RECORDS SUMMARY | 2024-12-13 14:48 | XMS_ITS | Data Portability ---
Author Organization [place] [facility] Address [address] [place] [address] Care Team Providers Care [employer] Consultant Name Role Phone KINGSLEY ALBERTO Primary Care Provider [phone] Assessment No assessment recorded. Plan of Treatment Reminders Order Date Submit Date Provider Last Modified By Organization Details Last Modified Time Details Appointments None recorded. Lab urinalysis , dipstick 2022 023 [email or web address] [facility], [address], [place], [address], 3 10:36:50 Referral None recorded. Procedures None recorded. Surgeries None recorded. Imaging None recorded. Medication Orders None recorded. Patient TargetsNo targets recorded. Patient Instructions Encounter Date Encounter Id Patient Instructions Last Modified By Organization Details Last Modified Time 10/04/2022 [id number] willp plan rtc 1 year for KUB. stone was 80% ca/oxalate and 20% ca/phosphate. [email or web address] Not available 10/04/2022 12:20:01 02/28/[address] [id number] review recent CT report and call if anything concerning. [email or web address] Not available 02/28/2023 10:48:41 Reason for Referral None Reported. Results Created Date Observation Date Name Description Value Unit Range Abnormal Flag Note LastModifiedBy Organization Detail LastModifiedTime 02/29/20 23 02/28/2023 urina lysis , dipst ick Color-Status Yellow Not Available [facility] [address], [place], [address], 02/28/2023 10:35:56 02/29/20 23 02/28/2023 urina lysis , dipst ick Clarity-Stat us Clear Not Available [facility] [address], [place], [address], 02/28/2023 10:35:56 02/29/20 23 02/28/2023 urina lysis , dipst ick Glucose-Stat us Negati ve Not Available [facility] [address], [place], [address], 02/28/2023 10:35:56 02/29/20 23 02/28/2023 urina lysis , dipst ick Bilirubin-St atus Negati ve Not Available [facility] [address], [place], [address], 02/28/2023 10:35:56 02/29/20 23 02/28/2023 urina lysis , dipst ick Ketones-Stat us Negati ve Not Available [facility] [address], [place], [address], 02/28/2023 10:35:56 02/29/20 23 02/28/2023 urina lysis , dipst ick Sp Jackson-Stat us >=1.03 0 Not Available [facility] [address], [place], [address], 02/28/2023 10:35:56 02/29/20 23 02/28/2023 urina lysis , dipst ick pH-Status 5.5 Not Available [facility] [address], [place], [address], 02/28/2023 10:35:56 02/29/20 23 02/28/2023 urina lysis , dipst ick Urobilinogen -Status 0.2 Not Available [facility] [address], [place], [address], 02/28/2023 10:35:56 02/29/20 23 02/28/2023 urina lysis , dipst ick Nitrates-Sta tus negati ve Not Available [facility] [address], [place], [address], 02/28/2023 10:35:56 02/29/20 23 02/28/2023 urina lysis , dipst ick Blood-Status Negati ve Not Available [facility] [address], [place], [address], 02/28/2023 10:35:56 02/29/20 23 02/28/2023 urina lysis , dipst ick Leuko-Status Negati ve Not Available [facility] [address], [place], [address], 02/28/2023 10:35:56 02/29/20 23 02/28/2023 urina lysis , dipst ick Specimen Type Voided Not Available [facility] [address], [place], [address], 02/28/2023 10:35:56 02/29/20 23 01/24/2023 US, abdom en, compl ete No observ ation record ed. [email or web address] Not Available 2022 09:54:41 02/29/2001/19/2023 CT, abdom en + pelvi s, w/o contr ast No observ ation record ed. [email or web address] Not Available 02/28 12:41:55 02/29/20 23 01/19/2023 CT, chest , w/ contr ast No observ ation record ed. [email or web address] Not Available 02/28 12:41:55 Result Notes None recorded. Procedures Surgical History Date Name Laterality Status Provider Name and Address Organization Details Recorded Time 022 PERCUTANEOUS NEPHROLITHOTOMY (SURG) completed Gissel Jones [facility] 2022 10:01:43 022 CYSTOSCOPY, WITH URETEROSCOPY, WITH LITHOTRIPSY, WITH INSERTION OF URETERAL STENT (SURG) completed [facility] 2022 10:01:43 016 colonoscopy completed Precious Banegas [facility] 10/20/2023 16:43:10 013 Cystourethroscopy completed [facility] 2022 10:01:44 013 Insert bladder catheter completed [facility] 2022 10:01:44 008 Cystourethroscopy completed [facility] 2022 10:01:44 008 Cystourethroscopy completed [facility] 2022 10:01:44 008 Repair bladder/vagina lesion completed [facility] 2022 10:01:44 008 Cystourethroscopy completed [facility] 2022 10:01:44 Total knee arthroplasty completed [facility] 2022 10:01:44 Total hysterectomy completed [facility] 2022 10:01:44 Exam of vagina w/scope completed [facility] 2022 10:01:44 Cholecystectomy completed [facility] 2022 10:01:44 Imaging Results Imaging Date Name Status LastModified by Organiz ation Details LastModified Time 01/24/2023 US, abdomen, complete completed [email or web address] Information not available 02/28/2023 09:54:41 01/19/2023 CT, abdomen + pelvis, w/o contrast completed [email or web address] Information not available 02/28/2023 12:41:55 01/19/2023 CT, chest, w/ contrast completed Information not available 02/28/2023 12:41:55 Procedure Notes None recorded. Medical Equipment None Reported. Allergies Allergen ID Allergen Name Allergen Category Reaction Reaction Severity Criticality Documentation Date Start Date Code Code System Note Provider Name and Address Organization Details Recorded Time [id number] 9fdce latex environme nt,medica tion Not available Not available Not available 04/23/2020 24991 91 RxNorm Not Available Not Available Not Available [id number] 8aa5e oxycodone medicatio n Not available Not available Not available 04/23/2020 7804 RxNorm Not Available Not Available Not Available 732xs8602 [id number] [id number] 299c9 morphine sulfate medicatio n Not available Not available Not available 04/23/2020 19891 RxNorm Not Available Not Available Not Available [id number] b1130 acetamino phen / hydrocodo ne medicatio n nausea severe Not available 02/28/2023 81960 2 RxNorm Not Available Not Available Not Available Medications Name Sig Start Date Stop Date [...] Not Available Vitals Date Recorded Body height Provider Name an d Address Organization Details Last Updated DateTime 10/04/2022 157.48 cm Ulysses Yeung MD [address] [place] [address], [address] [place] [address] 10/04/2022 12:09:49 Date Recorded Body mass index (BMI) Body weight Provider Name and Address Organization Details Last Updated DateTime 10/04/2022 31.1 kg/m2 32152.7 g Ulysses Yeung MD [address] [place] [address], [address] 10/04/2022 12:09:52 Date Recorded Body height Provider Name an d Address Organization Details Last Updated DateTime 02/28/2023 157.48 cm Jyothi Sanchez [facility] 10:29:56 Date Recorded Body mass index (BMI) Body weight Provider Name and Address Organization Details Last Updated DateTime 02/28/2023 32.6 kg/m2 00454.44 g Jyothi Sanchez [facility] 02/28/2023 10:30:14 Social History Question Answer Notes LastModified by Organizat ion Details LastModified Time Tobacco Smoking Status Former Smoker Jyothi blevins [facility] 02/28/2023 10:34:42 What Is Your Level Of Alcohol Consumption? Occasional [email or web address] Information not available 02/28/2023 What Is Your Level Of Caffeine Consumption? Moderate [email or web address] Information not available 02/28/2023 When Did You Quit Smoking? 16+yearssincel astcigarette [email or web address] Information not available 02/28/2023 Race White Information no t available 2022 Marital Status [email or web address] Informati on not available 04/24/2020 What Was The Date Of Your Most Recent Tobacco Screening? 02/28/2023 [email or web address] Information not available 02/28/2023 Do You Use Any Illicit Or Recreational Drugs? No [email or web address] Information not available 02/28/2023 Has Tobacco Cessation Counseling Been Provided? No [email or web address] Information not available 02/28/2023 How Many Years Have You Smoked Tobacco? 10 [email or web address] Information not available 02/28/2023 Do You Or Have You Ever Used Any Other Forms Of Tobacco Or Nicotine? No [email or web address] Information not available 02/28/2023 Sex: Unknown Functional Status None recorded. Mental Status None recorded. Family History Nothing Reported Notes:Cancer :Grandmother Cancer :Father Diabetes:Aunt Arthritis:Runs in Family Asthma:Runs in Family Medical History Condition Response Other N High Blood Pressure Y Kidney Stones Y Depression N Lung Disease N Sexually Transmitted Infection N Cancer N High Cholesterol Y Diabetes N Bleeding Disorder N Heart Disease N Gynecological HistoryNo gynecological history recorded. Obstetrics History GPAL:G 0 P 0 0 0 0 Immunizations Vaccine Type Date Status Note Provider Nam e and Address Organization Details Recorded Time pneumococcal polysaccharide PPV23 9 completed Jyothihortensia Sanchez null, [facility] 02/28/2023 10:30:33 Tdap 8 [facility] 16:42:40 Novel [id number], all formulations 9 [facility] 16:42:41 Influenza, split virus, trivalent, preservative 2 completed Vanida Nuzhat null, [facility] 05/26/2023 16:42:41 Influenza, split virus, trivalent, preservative 3 completed Vanida Nuzhat null, [facility] 05/26/2023 16:42:41 Influenza, split virus, trivalent, preservative 1 completed Vanida Nuzhat null, [facility] 05/26/2023 16:42:41 Influenza, split virus, trivalent, preservative 7 completed Vanida Nuzhat null, [facility] 05/26/2023 16:42:41 Influenza, split virus, trivalent, preservative 5 completed Vanida Nuzhat null, [facility] 05/26/2023 16:42:41 Td (adult), 5 Lf tetanus toxoid, preservative free, adsorbed 5 completed Vanida Nuzhat null, [facility] 05/26/2023 16:42:41 Td (adult), 2 Lf tetanus toxoid, preservative free, adsorbed 7 completed Vanida Nuzhat null, [facility] 05/26/2023 16:42:41 Influenza, split virus, quadrivalent, PF 8 completed Vanida Nuzhat null, [facility] 05/26/2023 16:42:41 Influenza, split virus, quadrivalent, PF 9 completed Vanida Nuzhat null, [facility] 05/26/2023 16:42:41 Influenza, split virus, quadrivalent, PF 7 completed Vanida Nuzhat null, [facility] 05/26/2023 16:42:41 Past Encounters Encounter ID Performer Location Encounter Start Date Encounter Closed Date Diagnosis/Indication Diagnosis SNOMED-CT Code Diagnosis ICD10 Code Diagnosis Note [id number] MD MARCO A [facility] [address] [place] [address] 10/04/2022 11:38:45 10/06/2022 12:47:05 Kidney stone [id number] N20.0 [id number] MD MARCO A [facility] [address] [place] [address] 02/28/2023 10:17:41 03/04/2023 12:56:15 Kidney stone [id number] N20.0 Health Concerns Section Related Observation LastModified by Organization Detai ls LastModified Time None Recorded Concern Status LastModified by Organization Details LastModified Time None Recorded Advance Directives Directive None Recorded Payers Encounter Date Sequence Insurance Name Policy Number Policy Deshpande Covered Member ID Deshpande Member ID Guarantor Name 10/04/2022 1 [employer] [id number] Hannah Robb [id number] Hannah Robb 02/28/2023 1 [place] [id number] Hannah Robb [id number] Hannah Robb Notes Date Note Type Note Provider Name and Address Organization Details Recorded Time 10/04/2022 text/html follow up Right PCNL on 07/21. no trouble since then. has a little tethering sensation at times. urine has looked clear. Ulysses Yeung MD [address] [place] [address],[address], [place], [address], [facility] 10/04/2022 12:20:57 02/28/2023 text/html follow up stones. had CT done early january possible showing some stones on the left side, U/S done after that showed on stones or hydro but did see some debis or sludge in common bile duct and she has been having RUQ pain. probably needs to see GI med for that. UA crystal clear today. Ulysses Yeung MD [address] [place] [address],[address], [place], [address], [facility] 02/28/2023 10:49:45 OBGyn Episode No OBEpisode recorded.
--- OUTSIDE RECORDS SUMMARY | 2024-12-13 14:49 | XMS_ITS | Clinical Summary ---
Author Organization [employer] [facility] Address [place], [place] [address] Care Team Providers [employer] Decorator Name Role Phone Leonie Orr DO Primary Care Provider [phone] Jean Chang MD Unavailable [phone] Dg Garza Unavailable Allergies Active Allergy Reactions Criticality Noted Date Comments Atorvastatin Myalgia Medium 05/24/2019 Celecoxib Edema 12/25/2015 Latex Itching 07/03/2008 Urethra swelled with hays catheter. Rash around mouth from latex gloves at dentist 20 years ago. Lisinopril Headache Low 05/24/2019 Morphine Itching Medications ibuprofen (ADVIL; MOTRIN) 200 mg tablet Take 800 mg by mouth every 6 hours if needed. Active acetaminophen (TYLENOL) 325 mg tabletIndication s:Kidney stone Take 1-2 Tablets (325-650 mg) by mouth every 4 hours if needed for Pain (For mild pain.). Max acetaminophen dose: 4000mg in 24 hrs. 30 Tablet 07/23/2022 12:17 PM CDT 07/23/20 22 Active triamcinolone (ARISTOCORT; KENALOG) 0.1 % creamIndications :Dermatitis Apply topically to affected area(s) two times daily. 80 g 11/29/19 24 Active clobetasol (TEMOVATE) 0.05 % ointment 04/25/20 24 Active losartan (COZAAR) 25 mg tabletIndication s:Primary hypertension Take 1 Tablet (25 mg) by mouth once daily. 90 Tablet 3 07/31/20 24 Active oxyCODONE-acetam inophen (Percocet) 5-325 mg per tabletIndication s:Hallux valgus with bunions, right Take 1-2 Tablets by mouth every 4 hours if needed for Pain. Max acetaminophen dose: 4000mg in 24 hrs. 20 Tablet 08/13/20 24 Active durable medical equipment (DME)Indications :S/P foot surgery, right,Bunion of right foot 01ES-M Airselect, Short, Medium 1 Each 08/15/20 24 Active albuterol HFA (ProAir HFA) 90 mcg/actuation inhalerIndicatio ns:Acute cough,SOB (shortness of breath) Inhale 1-2 Puffs by mouth every 4 hours if needed for Shortness of Breath 1st choice. 1 Each 09/17/20 Active Active Problems Problem Noted Date Diagnosed Date HTN (hypertension) 09/21/2022 Vitamin D deficiency 07/12/2022 Statin intolerance 07/12/2022 Situational anxiety 07/12/2022 S/P total hip arthroplasty 07/12/2022 Osteopenia 07/12/2022 Osteoarthritis, multiple sites 07/12/2022 Obesity (BMI 30.0-34.9) 07/12/2022 Hx of bladder repair surgery 07/12/2022 [...] myalgias 2006: Zetia and fish oil -myalgias 2007: Pravastatin 80 mg -1 dose led to myalgias Oct 2008: Tried red rice yeast, niacin, fish oil with no improvement in cholesterol Nov 2009: Pravastatin 10 mg -unsure why discontinued January 2011: Tried fenofibrate, but patient stopped using 2015: Tried atorvastatin again with onset of myalgias 2018: Zetia with return of muscle pain and no response to cholesterol. Pain in joint, site unspecified 05/05/2006 Migraine, unspecified, witho ut mention of intractable migraine without mention of status migrainosus 05/05/2006 Irritable bowel syndrome 05/05/2006 Kidney stone Resolved Problems Problem Noted Date Diagnosed Date Resolved Date Moderate persistent asthma 07/12/2022 1 11/17/2023 History of colonic polyps 07/12/2022 Colonic polyp 07/26/2015 07/12/2022 Urinary-genital tract fistula, female 04/17/2008 09/09/2008 Adjustment disorder with mix ed anxiety and depressed mood 12/18/2007 09/23/2008 Premenstrual tension syndromes 05/05/2006 09/23/2008 Encounters Date Type Department Care Team Description 12/13/2024 1:35 PM DOCUMENT PROCESSING SPECIALIST Phone Office Visit [facility] [address] [place] [address] Yanni Tracy DO Phone Visit (No vitals taken); Pain (Flank pain , left pain in the rib cage. Denies fever or vomiting , no nausea . This just started this morning. She has a history of Kidney stones and has had surgery. No burning or frequency) 12/13/2024 Travel 12/13/2024 Nurse Triage [facility] [address] [place] [address] Leonie Orr DO Flank Pain 12/12/2024 Telephone [facility] [address] [place] [address] Leonie Orr DO Referral (Vascular medicine ) 12/05/[address] [facility] [address] [place] [address] Miguel Monson MD Referral 12/04/[address] [facility] [address] [place] [address] Ronny Shane MD Referral 12/03/2024 Orders Only [facility] [address] [place] [address] Greg Newell PA <No scans attached> 11/30/2024 Telephone [facility] [address] [place] [address] Kirby Leonie Belle, DO Referral (Vascular) 11/28/2024 11:45 AM DOCUMENT PROCESSING SPECIALIST Ancillary Procedure [address] [address] 11/28/2024 11:15 AM DOCUMENT PROCESSING SPECIALIST Office Visit [address] [address] Chivo Delatorre DPM Post-op (Right foot, DOS 08/13/24, 3.5 months post op) 11/28/2024 Travel 11/24/2024 Travel 11/16/[address] [address] Mamadou Forrest MD Injection (Medication) (Right Knee ) 11/16/2024 Nurse Triage [facility] [address] [place] [address] Sir Orri Belle, DO Lump 10/22/[address] [address] Kirby Leonie Belle, DO Questions (SINUS INFECTION) 09/26/2024 10:30 AM DOCUMENT PROCESSING SPECIALIST Ancillary Procedure [address] [address] 09/26/2024 10:00 AM DOCUMENT PROCESSING SPECIALIST Office Visit [address] [address] Chivo Delatorre DPM Post-op (Right 6 week post op, DOS 08/13/24) 09/26/2024 Travel 09/18/2024 12:51 PM DOCUMENT PROCESSING SPECIALIST - 09/18/2024 3:07 PM DOCUMENT PROCESSING SPECIALIST Emergency [facility] [address] [facility] [place] [address] Landy Souza PA Upper respiratory tract infection, unspecified type (Primary Dx) Discharge Disposition: Home Self Care 09/18/2024 12:15 PM DOCUMENT PROCESSING SPECIALIST Office Visit [facility] [address] [facility] [address] Jaki Rao NP Weight (Has gained 10 pounds in 4 days. Did take OTC diuretic this morning. Has been drinking water, coffee, soda crackers. ); Gastroesophageal Reflux (Describes heartburn increased over the last 6 days. ); Shortness Of Breath (Feeling more short of breath. ); Edema (Noting lower extremity edema- right worse than left. ) 09/18/2024 Travel 09/18/2024 Telephone [facility] [address] [place] [address] Faith Khanna PA Questions (weight) 09/17/2024 2:30 PM DOCUMENT PROCESSING SPECIALIST Ancillary Procedure [facility] [address] [place] [address] 09/17/2024 1:40 PM DOCUMENT PROCESSING SPECIALIST Office Visit [facility] [address] [place] [address] Faith Khanna PA Pneumonia 09/17/2024 Travel from Last 3 Months Immunizations Name Administration [...] 0 11/17/2020 Social Connections Answer Date Recorded Do you often feel lonely or isolated from those around you? 0 02/17/2024 Financial Resource Strain Answer Date R ecorded Difficulty of Paying Living Expenses 3 02/17/2024 Difficulty of Paying Living Expenses Not on file 02/17/2024 Food Insecurity Answer Date Recorded Do you worry your food will run out before you are able to buy more? 1 02/17/2024 Transportation Needs Answer Date Record ed Does lack of transportation keep you from medica l appointments? 1 02/17/2024 Does lack of transportation keep you from work, meetings or getting things that you need? 1 02/17/2024 Housing Stability Answer Date Recorded What is your housing situation today? 1 02/17/2024 Interpersonal Safety Answer Date Record ed Are you being hit, kicked, p ushed or yelled at (see row info)? No 09/18/2024 Interpersonal Safety Abuse 12 - 18 Not on file 09/18/2024 Interpersonal Safety Ambulatory Vulnerability No t on file 09/18/2024 Utilities Answer Date Recorded Do you have trouble paying f or utilities (for example, heat, electricity, water, phone)? 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 on file Not on file Not on beth e Obstetrics History Para Term AB IAB SAB [...] Sign Reading Time Taken Comments Blood Pressure 155/101 09/18/2024 1:03 PM DOCUMENT PROCESSING SPECIALIST Pulse 66 11/28/2024 11:09 AM DOCUMENT PROCESSING SPECIALIST Temperature 36.7 C (98 F) 09/18/2024 12:59 PM DOCUMENT PROCESSING SPECIALIST Respiratory Rate 19 09/18/2024 12:59 PM DOCUMENT PROCESSING SPECIALIST Oxygen Saturation 98% 11/28/2024 11:09 AM DOCUMENT PROCESSING SPECIALIST Inhaled Oxygen Concentration - - Weight 82.6 kg (182 lb) 11/28/2024 11:09 AM DOCUMENT PROCESSING SPECIALIST Height 160 cm (5' 3) 09/18/2024 12:59 PM DOCUMENT PROCESSING SPECIALIST Body Mass Index 32.24 09/18/2024 12:59 PM DOCUMENT PROCESSING SPECIALIST Plan of Treatment Health Maintenance Due Date Last Done Comments Zoster (shingles) series for age 50+ (1 of 2) 2011 Mammogram for age 45-75 04/25/2015 04/25/20 14, 09/13/2011, 10/03/2007 Pneumococcal series for age 50+ (2 of 2 - PCV) 05/24/2020 05/24/2019 RSV vaccine for adults or (1 - Risk 60-74 years 1-dose series) 2021 Depression screening for age 12+ 11/17/2021 11/17/19, 12/25/2015 BMI (ht and wt on same day) for age 18+ 02/15/2024 02/14/2023, 02/26/2022, 12/23/2021, Additional history exists COVID-19 vaccine series ( - season) 2024 Influenza for age 50-64 07/15/2024 [...] Procedure Name Priority Date/Time Associated Diagnosis Comments XR FOOT 3 VIEWS RIGHT Routine 11/28/2024 11:52 AM DOCUMENT PROCESSING SPECIALIST Follow-up examination after orthopedic surgery Bunion of right foot XR FOOT 3 VIEWS RIGHT Routine 09/26/2024 10:16 AM DOCUMENT PROCESSING SPECIALIST Follow-up examination after orthopedic surgery Bunion of right foot Hallux valgus with bunions, right Metatarsalgia, right foot S/P foot surgery, right CT CHEST PE STUDY STAT 09/18/2024 2:4 3 PM DOCUMENT PROCESSING SPECIALIST COVID-19 MOLECULAR Today 09/18/2024 1: 28 PM DOCUMENT PROCESSING SPECIALIST CBC WITH AUTO DIFFERENTIAL STAT 09/18/2024 1:21 PM DOCUMENT PROCESSING SPECIALIST PRO-BNP STAT 09/18/2024 1:21 PM DOCUMENT PROCESSING SPECIALIST D-DIMER,QUANTITATIVE STAT 09/18/2024 1:21 PM DOCUMENT PROCESSING SPECIALIST TROPONIN T (HS) ACUTE W/2HR REFLEX STAT 09/18/2024 1:21 PM DOCUMENT PROCESSING SPECIALIST BASIC METABOLIC PANEL STAT 09/18/2024 1:21 PM DOCUMENT PROCESSING SPECIALIST CBC WITH AUTO DIFFERENTIAL STAT 09/18/2024 1:21 PM DOCUMENT PROCESSING SPECIALIST EKG 12 LEAD STAT 09/18/2024 1:07 PM DOCUMENT PROCESSING SPECIALIST XR CHEST 2 VIEWS PA AND LATERAL STAT 09/17/2024 2:26 PM DOCUMENT PROCESSING SPECIALIST Acute cough Chest pain, pleuritic SOB (shortness of breath) LIPID PANEL W REFLEX MEASURED LDL Routine 11/29/2023 9:28 AM DOCUMENT PROCESSING SPECIALIST Mixed hyperlipidemia COLONOSCOPY SCREENING Routine 12/01/2015 Colonic polyp XR MAMMO BILAT SCREEN FFDM (IA) Routine 04/25/2014 11:27 AM CDT Routine general medical examination at a health care facility ANTI HIV 1/2 Routine 08/26/2011 9:52 AM CDT Hx-cont/exps haz bdy fld ANTI HCV Routine 08/26/2011 9:52 AM CDT Hx-cont/exps haz bdy fld from Last 3 Months or Most Recently Relevant to Health Maintenance Results * XR FOOT 3 VIEWS RIGHT (11/28/2024 11:52 AM DOCUMENT PROCESSING SPECIALIST) Only the most recent of2 resultswithin the time period is included. Anatomical Region Laterality Modality FEET, FOOT R Computed Radiogr aphy 11/28/2024 3:00 PM DOCUMENT PROCESSING SPECIALIST Impressions 11/28/2024 3:00 PM DOCUMENT PROCESSING SPECIALIST Healed 1st metatarsal osteotomy. Intact hardware. Postop changes distal 2nd metatarsal and great toe proximal phalanx. Posterior calcaneal spur. Hammertoes. No acute fracture. Dictated by Bennett Talley MD @ 11/28/2024 3:00:13 PM (Electronically Signed) Narrative 11/28/2024 3:00 PM DOCUMENT PROCESSING SPECIALIST For Patients: As a result of the Cures Act, medical imaging exams and procedure reports are released immediately into your electronic medical record. You may view this report before your referring provider. If you have questions, please contact your health care provider. Indication: Follow-up surgery Technique: Right foot three views Comparison: 09/26/2024 Procedure Note Bennett Talley MD - 11/28/2024 For Patients: As a result of the Cures Act, medical imagingexams and procedure reports are released immediately into your electronicmedical record. You may view this report before your referring provider.If you have questions, please contact your health care provider. Indication: Follow-up surgery Technique: Right foot three views Comparison: 09/26/2024 IMPRESSION: Healed 1st metatarsal osteotomy. Intact hardware. Postop changes [id number] metatarsal and great toe proximal phalanx. Posterior calcaneal spur.Hammertoes. No acute fracture. Dictated by Bennett Talley MD @ 11/28/2024 3:00:13 PM (Electronically Signed) us Chivo Delatorre DP GENERAL IMAGING Final Res ult * CT CHEST PE STUDY (09/18/2024 2:43 PM DOCUMENT PROCESSING SPECIALIST) Anatomical Region Laterality Modality CHEST, THORAX, HEART Computed To mography 09/18/2024 2:50 PM DOCUMENT PROCESSING SPECIALIST Impressions 09/18/2024 2:50 PM DOCUMENT PROCESSING SPECIALIST No evidence of pulmonary embolism or other significant cardiopulmonary process. Incidental findings described in the body of the report. Please note that all CT scans at this facility use dose modulation, iterative reconstruction, and/or weight-based dosing when appropriate to reduce radiation dose to as low as reasonably achievable. Dictated by Dalton Wharton MD @ 09/18/2024 2:50:24 PM (Electronically Signed) Narrative 09/18/2024 2:50 PM DOCUMENT PROCESSING SPECIALIST For Patients: As a result of the Century Cures Act, medical imaging exams and procedure reports are released immediately into your electronic medical record. You may view this report before your referring provider. If you have questions, please contact your health care provider. INDICATION: Positive D-dimer. COMPARISON: None available. TECHNIQUE: CT pulmonary angiography with 100 cc of Omnipaque 350 intravenous contrast. Please note that all CT scans at this facility use dose modulation, iterative reconstruction, and/or weight-based dosing when appropriate to reduce radiation dose to as low as reasonably achievable. FINDINGS: THORAX a Pulmonary Arterial Vasculature: Opacification of the pulmonary arterial tree is adequate for assessment of pulmonary embolism. No intraluminal pulmonary arterial filling defect is identified to indicate a pulmonary embolism. Visualized Lower Neck: No lower cervical adenopathy. Lungs: Bibasilar multilobar pleural-based linear opacities consistent with subsegmental atelectasis and/or nonspecific fibrosis. No consolidation. No significant atelectasis. Pleura: No pleural effusion. No pneumothorax. Mediastinum: Thoracic aorta and pulmonary trunk are normal in caliber. Heart and pericardium are without significant findings. Trachea and esophagus are normal in appearance. No mediastinal lymphadenopathy. ABDOMEN Visualized Upper Abdomen: No significant findings. Absent gallbladder. SKELETON AND BODY WALL No acute or significant incidental findings. Procedure Note Dalton Wharton MD - 09/18/2024 For Patients: As a result of the Cures Act, medical imagingexams and procedure reports are released immediately into your electronicmedical record. You may view this report before your referring provider.If you have questions, please contact your health care provider. INDICATION: Positive D-dimer. COMPARISON: None available. TECHNIQUE: CT pulmonary angiography with 100 cc of Omnipaque 350 intravenouscontrast. Please note that all CT scans at this facility use dosemodulation, iterative reconstruction, and/or weight-based dosing whenappropriate to reduce radiation dose to as low as reasonably achievable. FINDINGS: THORAX a Pulmonary Arterial Vasculature: Opacification of the pulmonary arterialtree is adequate for assessment of pulmonary embolism. No intraluminalpulmonary arterial filling defect is identified to indicate a pulmonaryembolism. Visualized Lower Neck: No lower cervical adenopathy. Lungs: Bibasilar multilobar pleural-based linear opacities consistent withsubsegmental atelectasis and/or nonspecific fibrosis. No consolidation. Nosignificant atelectasis. Pleura: No pleural effusion. No pneumothorax. Mediastinum: Thoracic aorta and pulmonary trunk are normal in caliber. Heart andpericardium are without significant findings. Trachea and esophagus arenormal in appearance. No mediastinal lymphadenopathy. ABDOMEN Visualized Upper Abdomen: No significant findings. Absent gallbladder. SKELETON AND BODY WALL No acute or significant incidental findings. IMPRESSION: No evidence of pulmonary embolism or other significant cardiopulmonaryprocess. Incidental findings described in the body of the report. Please note that all CT scans at this facility use dose modulation,iterative reconstruction, and/or weight-based dosing when appropriate toreduce radiation dose to as low as reasonably achievable. Dictated by Dalton Wharton MD @ 09/18/2024 2:50:24 PM (Electronically Signed) Landy Souza PA CT Final R esult * COVID-19 MOLECULAR (09/18/2024 1:28 PM DOCUMENT PROCESSING SPECIALIST) COVID 19 ALLDAVINA MOLECULAR Not detected Not detected 09/18/2024 1:57 PM DOCUMENT PROCESSING SPECIALIST [facility] TESTING LABORATORY [facility] 09/18/2024 1:57 PM DOCUMENT PROCESSING SPECIALIST [facility] Comment:Specimen submitted t o [facility] for testing. Other SPECIMEN FROM NASOPHARYNGEAL STRUCTURE / Unknown Non-Blood / Unknown 09/18/2024 1:28 PM DOCUMENT PROCESSING SPECIALIST 09/18/2024 1:35 PM DOCUMENT PROCESSING SPECIALIST us Landy MARTINEZ MICROBIOLOGY Final R esult [facility] [address] [place] [address] * TROPONIN T (HS) ACUTE W/2HR REFLEX (09/18/2024 1:21 PM DOCUMENT PROCESSING SPECIALIST) TROPONIN T HS <6 6-10 ng/L ng/L 09/18/2024 1:58 PM DOCUMENT PROCESSING SPECIALIST [facility] Blood BLOOD SPECIMEN / Unknown Venipuncture / Unknown 09/18/2024 1:21 PM DOCUMENT PROCESSING SPECIALIST 09/18/2024 1:29 PM DOCUMENT PROCESSING SPECIALIST Narrative [facility] - 09/18/2024 1:58 PM DOCUMENT PROCESSING SPECIALIST hs-cTnT (Elecsys Troponin T Gen 5) concentration (s) above the sex-specific 99th percentile (16 ng/L or greater for males or 11 ng/L or greater for females) are indicative of myocardial injury. If initial hs-cTnT <=100 ng/L at presentation, a 0h/2h ABSOLUTE (ng/L) delta change (rising or falling) of >=10 ng/L suggests a significant change, whereas a 0h/2h delta change <=3 ng/L suggests no significant change. If initial hs-cTnT >100 ng/L at presentation, a 0h/2h/ RELATIVE (percent, %) delta change of 20% is suggested to distinguish patients with acute vs. chronic myocardial injury. There are multiple etiologies that can cause hs-cTnT increases above the 99th percentile (myocardial injury) other than acute myocardial infarction. Clinical context and careful clinical evaluation are critical for diagnosis and risk-stratification. The diagnosis of acute myocardial infarction requires a rising and/or falling pattern in hs-cTnT concentrations with at least one value above the sex-specific 99th percentile PLUS at least one of the following clinical criteria: ischemic symptoms, new or presumed new significant ST-T wave changes or new LBBB, development of pathological Q waves, imaging evidence of new loss of viable myocardium or new regional wall motion abnormality, or identification of intracoronary atherothrombosis or an acute angiographic culprit on coronary angiography. In appropriate low-risk patients with a non-ischemic electrocardiogram without active chest pain with a symptom onset >3-hours without recurrence, a single initial hs-cTnT<6 ng/L identifies patient with a very low risk in emergency department patient population. us Landy MARTINEZ CHEMISTRY Final R esult [facility] [address] [place] [id number] * CBC WITH AUTO DIFFERENTIAL (09/18/2024 1:21 PM DOCUMENT PROCESSING SPECIALIST) WHITE BLOOD COUNT 6.9 4.5 - 11.0 thou/cu mm 09/18/2024 1:39 PM [facility] RED BLOOD COUNT 4.52 4.00 - 5.20 mil/cu mm 09/18/2024 1:39 PM [facility] HEMOGLOBIN 12.9 12.0 - 16.0 g/dL 09/18/2024 1:39 PM [facility] HEMATOCRIT 39.5 33.0 - 51.0 % 09/18/2024 1:39 PM [facility] MCV 87 80 - 100 fL 09/18/2024 1:39 PM [facility] MCH 28.5 26.0 - 34.0 pg 09/18/2024 1:39 PM [facility] MCHC 32.7 32.0 - 36.0 g/dL 09/18/2024 1:39 PM [facility] RDW 13.9 11.5 - 15.5 % 09/18/2024 1:39 PM [facility] PLATELET COUNT 232 140 - 440 thou/cu mm 09/18/2024 1:39 PM [facility] MPV 8.6 6.5 - 11.0 fL 09/18/2024 1:39 PM [facility] % NEUT 57.5 % 09/18/2024 1:39 PM [facility] % LYMPH 32.1 % 09/18/2024 1:39 PM [facility] % MONO 8.1 % 09/18/2024 1:39 PM [facility] % EOS 2.0 % 09/18/2024 1:39 PM [facility] % BASO 0.3 % 09/18/2024 1:39 PM [facility] ABSOLUTE NEUTROPHILS 4.0 1.7 - 7.0 thou/cu mm 09/18/2024 1:39 PM [facility] ABSOLUTE LYMPHOCYTES 2.2 0.9 - 2.9 thou/cu mm 09/18/2024 1:39 PM [facility] ABSOLUTE MONOCYTES 0.6 <0.9 thou/cu mm 09/18/2024 1:39 PM [facility] ABSOLUTE EOSINOPHILS 0.1 <0.5 thou/cu mm 09/18/2024 1:39 PM [facility] ABSOLUTE BASOPHILS 0.0 <0.3 thou/cu mm 09/18/2024 1:39 PM [facility] Blood BLOOD SPECIMEN / Unknown Venipuncture / Unknown 09/18/2024 1:21 PM DOCUMENT PROCESSING SPECIALIST 09/18/2024 1:29 PM DOCUMENT PROCESSING SPECIALIST us Landy MARTINEZ HEMATOLOGY Final R esult [facility] [address] [place] [address] * (ABNORMAL) D-DIMER,QUANTITATIVE (09/18/2024 1:21 PM DOCUMENT PROCESSING SPECIALIST) D-DIMER,QUANTI TATIVE 1.09 See comment FEU mcg/mL 09/18/2024 1:41 PM [facility] D-DIMER INTERP Abnormal( A) 09/18/2024 1:41 PM [facility] Blood BLOOD SPECIMEN / Unknown Venipuncture / Unknown 09/18/2024 1:21 PM DOCUMENT PROCESSING SPECIALIST 09/18/2024 1:29 PM [facility] - 09/18/2024 1:41 PM DOCUMENT PROCESSING SPECIALIST The cut off value for exclusion of Deep Vein Thrombosis and / or Pulmonary Embolism is 0.50 FEU mcg/mL For patients greater than 50 years of age the upper limit is age dependent and was calculated with the formula: (PATIENT AGE x 0.01) FEU mcg/mL = Upper limit of normal range us Landy MARTINEZ HEMATOLOGY Final R esult [facility] [address] [place] [address] * PRO-BNP (09/18/2024 1:21 PM [facility]) PRO-BNP <36 <125 pg/mL 09/18/2024 2:00 PM [facility] Blood BLOOD SPECIMEN / Unknown Venipuncture / Unknown 09/18/2024 1:21 PM DOCUMENT PROCESSING SPECIALIST 09/18/2024 1:29 PM [facility] - 09/18/2024 2:00 PM [facility] The following cut-points have been suggested for the use of proBNP for the diagnostic evaluation of heart failure (HF) in patient with acute dyspnea. Patients with eGFR >= 60 Diagnosis (rule in CHF) <50 Years Old 450 pg/mL 50 - 75 Years Old 900 pg/mL >75 Years Old 1800 pg/mL Exclusion (rule out CHF) Age Independent 300 pg/mL A cutoff of 1200 pg/mL for patients with an eGFR <60 yields a diagnostic sensitivity of 89% and specificity of 72% for acute congestive heart failure. Landy MARTINEZ SEND OUTS Final R esult [facility] [address] [place] [address] * (ABNORMAL) BASIC METABOLIC PANEL (09/18/2024 1:21 PM DOCUMENT PROCESSING SPECIALIST) SODIUM 142 136 - 145 mmol/L 09/18/2024 1:58 PM [facility] POTASSIUM 3.5 3.5 - 5.1 mmol/L 09/18/2024 1:58 PM [facility] CHLORIDE 105 98 - 107 mmol/L 09/18/2024 1:58 PM [facility] CO2,TOTAL 25 22 - 29 mmol/L 09/18/2024 1:58 PM [facility] ANION GAP 12 5 - 18 09/18/2024 1:58 PM [facility] GLUCOSE 98 70 - 99 mg/dL 09/18/2024 1:58 PM [facility] CALCIUM 9.3 8.8 - 10.4 mg/dL 09/18/2024 1:58 PM [facility] Comment: Reference ranges for this test were updated on 09/18/2024 to reflect our healthy population more accurately. Reference range changes are not retroactively applied to results, but previous results using the same methodology can be interpreted in the context of the new reference range. BUN 18 8 - 23 mg/dL 09/18/2024 1:58 PM [facility] CREATININE 0.68 0.50 - 0.90 mg/dL 09/18/2024 1:58 PM [facility] BUN/CREAT RATIO 26(H) 10 - 20 4 1:58 PM [facility] eGFR >90 >90 mL/min/1.7 3m2 09/18/2024 1:58 PM DOCUMENT PROCESSING SPECIALIST [facility] Comment:As of 2022, eG FR is calculated by the CKD-EPI creatinine equation without race adjustment. eGFR can be influenced by muscle mass, exercise, and diet. The reported eGFR is an estimation only and is only applicable if the renal function is stable. Blood BLOOD SPECIMEN / Unknown Venipuncture / Unknown 09/18/2024 1:21 PM DOCUMENT PROCESSING SPECIALIST 09/18/2024 1:29 PM DOCUMENT PROCESSING SPECIALIST Landy MARTINEZ CHEMISTRY Final R esult Performing Organization Address [facility] Co de Phone Number [facility] [address] [place] [address] * EKG 12 LEAD (09/18/2024 1:07 PM DOCUMENT PROCESSING SPECIALIST) Interpretation Normal sinus rhythm Normal ECG When compared with ECG of 02-Sep-2008 07:39, No significant change was found BEYOND NOW Ventricular Rate 68 BPM BEYOND NOW Atrial Rate 68 BPM BEYOND NOW P-R Interval 136 ms BEYOND NOW QRS Duration 96 ms BEYOND NOW QT 408 ms BEYOND NOW QTc 433 ms BEYOND NOW P [place] 23 degrees BEYOND NOW R [place] -15 degrees BEYOND NOW T [place] 33 degrees BEYOND NOW 09/18/2024 1:07 PM DOCUMENT PROCESSING SPECIALIST 09/18/2024 7:03 PM DOCUMENT PROCESSING SPECIALIST Landy MARTINEZ EKG ORD Final R esult Performing Organization Address [facility] Co de Phone Number BEYOND NOW [place], [place] * XR CHEST 2 VIEWS PA AND LATERAL (09/17/2024 2:26 PM DOCUMENT PROCESSING SPECIALIST) Anatomical Region Laterality Modality CHEST, THORAX, Lung, HEART Compu shantal Radiography 09/17/2024 2:41 PM DOCUMENT PROCESSING SPECIALIST Narrative 09/17/2024 2:41 PM DOCUMENT PROCESSING SPECIALIST For Patients: As a result of the Cures Act, medical imaging exams and procedure reports are released immediately into your electronic medical record. You may view this report before your referring provider. If you have questions, please contact your health care provider. Indication: Acute cough Comparison: Two-view chest June 06, 2009 Technique: PA and lateral views of the chest Findings: There is minimal basilar atelectasis and parenchymal scar without definite dense consolidation, effusion or pneumothorax. The cardiomediastinal silhouette is within normal limits. The bony thorax is grossly intact. Impression: Minimal basilar atelectasis and parenchymal scar. No dense consolidation. Dictated by Tay Bee MD @ 09/17/2024 2:41:59 PM (Electronically Signed) Procedure Note Tay Bee MD - 09/17/2024 For Patients: As a result of the Cures Act, medical imagingexams and procedure reports are released immediately into your electronicmedical record. You may view this report before your referring provider.If you have questions, please contact your health care provider. Indication: Acute cough Comparison: Two-view chest June 06, 2009 Technique: PA and lateral views of the chest Findings: There is minimal basilar atelectasis and parenchymal scar without definitedense consolidation, effusion or pneumothorax. The cardiomediastinal silhouette is within normal limits. The bony thorax is grossly intact. Impression: Minimal basilar atelectasis and parenchymal scar. No denseconsolidation. Dictated by Tay Bee MD @ 09/17/2024 2:41:59 PM (Electronically Signed) Faith MARTINEZ GENERAL IMAGING Final Result * (ABNORMAL) LIPID PANEL W REFLEX MEASURED LDL (11/29/2023 9:28 AM DOCUMENT PROCESSING SPECIALIST) CHOLESTEROL,TOTAL 247(H) 100 - 199 mg/dL 11/29/2023 5:31 PM DOCUMENT PROCESSING SPECIALIST [facility] Comment: Cholesterol, Total Reference Ranges Desirable <200 mg/dL Borderline 200-239 mg/dL High >=240 mg/dL TRIGLYCERIDES 179(H) <150 mg/dL 11/29/2023 5:31 PM DOCUMENT PROCESSING SPECIALIST [facility] HDL CHOLESTEROL 57 >40 mg/dL 5:31 PM DOCUMENT PROCESSING SPECIALIST [facility] NON-HDL CHOLESTEROL 190(H) <145 mg/dl 11/29/2023 5:31 PM [facility] CHOL/HDL RATIO 4.33 <4.50 11/29/2023 5:31 PM DOCUMENT PROCESSING SPECIALIST [facility] LDL CHOLESTEROL 154(H) <=130 mg/dL 11/29/2023 5:31 PM [facility] VLDL CHOLESTEROL 36(H) <=30 mg/dL 11/29/2023 5:31 PM DOCUMENT PROCESSING SPECIALIST [facility] PROVIDER ORDERED STATUS RANDOM 11/29/2023 5:31 PM DOCUMENT PROCESSING SPECIALIST [facility] Blood BLOOD SPECIMEN / Unknown Venipuncture / Unknown 11/29/2023 9:28 AM DOCUMENT PROCESSING SPECIALIST 11/29/2023 9:29 AM DOCUMENT PROCESSING SPECIALIST Leonie Arteagaalona DO CHEMISTRY Final Result [facility] [address] [place] [address], * COLONOSCOPY SCREENING (12/01/2015) Javier Cobb MD GI PROCEDURE ORD Final Re sult * XR MAMMO BILAT SCREEN FFDM (04/25/2014 11:27 AM CDT) Anatomical Region Laterality Modality BREASTS, Breast Left, Breast Right Bilateral Mammography Impressions 04/26/2014 8:20 AM CDT There is no radiographic evidence for malignancy. Recommend annual mammograms. A lay language report of this examination will be provided to the patient. MAMMOGRAM ASSESSMENT: ACR 1 Negative Narrative 04/26/2014 8:20 AM CDT XR MAMMO BILAT SCREEN FFDM [G0202.0] CLINICAL HISTORY: This is an asymptomatic 53 y.o. patient. INDICATION FOR EXAM: Mammogram Screening. TECHNIQUE: CC & MLO views were obtained. This digital study was evaluated with the assistance of Computer-Aided Detection. COMPARISON FILM: Yes 09/15/11 [facility] FINDINGS: Mammographically, the breast tissue is almost entirely fat (<25% glandular). There are no dominant masses, suspicious micro calcifications or areas of architectural distortion. Procedure Note Deandre Bains MD - 04/26/2014 XR MAMMO BILAT SCREEN FFDM [G0202.0] CLINICAL HISTORY: This is an asymptomatic 53 y.o. patient. INDICATION FOR EXAM: Mammogram Screening. TECHNIQUE: CC & MLO views were obtained. This digital study was evaluatedwith the assistance of Computer-Aided Detection. COMPARISON FILM: Yes 09/15/11 [facility] FINDINGS: Mammographically, the breast tissue is almost entirely fat(<25% glandular). There are no dominant masses, suspicious microcalcifications or areas of architectural distortion. IMPRESSION: There is no radiographic evidence for malignancy. Recommendannual mammograms. A lay language report of this examination will be provided to the patient. MAMMOGRAM ASSESSMENT: ACR 1 Negative Maria Alejandra Coatsami MAMMO Final Result * ANTI HCV (08/26/2011 9:52 AM CDT) ANTI HCV Non-reacti ve [facility] Blood specimen (specimen) BLOOD SPECIMEN / Unknown 08/26/2011 9:52 AM CDT 08/26/2011 9:47 AM CDT Maria Alejandra Sotelo Kevan SEND OUTS Final Result Performing Organization Address [facility] Co de Phone Number [facility] INTERNAL ZIP [phone] [place] [phone] * ANTI HIV 1/2 (08/26/2011 9:52 AM CDT) ANTI HIV 1/2 Non-reacti ve [facility] Blood specimen (specimen) BLOOD SPECIMEN / Unknown 08/26/2011 9:52 AM CDT 08/26/2011 9:47 AM CDT Maria Alejandra Coatsami SEND OUTS Final Result Performing Organization Address City/[facility]/ZIP Co de Phone Number [facility] INTERNAL ZIP [address] [place] [phone] from Last 3 Months or Most Recently Relevant to Health Maintenance Insurance [employer] [place] [employer] Advance Directives * Full Code (Latest Code Status on File) Date Activated Date Inactivated Comments 07/21/2022 6:53 AM 07/24/2022 5:32 PM Question Answer Comments Code Status Discussion: Not Discussed * Full Code Date Activated Date Inactivated Comments 09/02/2008 5:17 AM 09/02/2008 1:33 PM Care Teams [employer] Decorator Relationship Specialty Start Date End Date Leonie Orr DO [address] [place] [address] PCP - General Internal Medicine 12/02/20 Jean Chang MD [address] [place] [address] Provider Surgery - Urology 11/30/[address] [place] [address] Detail Manager 12/16/22
[2024-12-13 14:56] VITALS: BP 150/82; PULSE 77; RESP 16; TEMP 36.8; O2SAT 96; BMI 32.9
[2024-12-13 15:14] LABS: Appearance Urine Clear (Clear); Bilirubin Urine Negative (Negative); Blood Urine Negative (Negative); Color Urine Yellow (Yellow); Glucose Urine Negative (Negative); Ketones Urine Negative (Negative); Leukocyte Esterase Urine 2+ (Negative); Nitrite Urine Negative (Negative); Protein Urine Negative (Negative); Urobilinogen Urine 0.2 (0.2-1.0)
[2024-12-13 15:21] LABS: RBC Urine 0-2 (0-2); Squamous Epithelial Cell Urine Few (None-Few); WBC Clumps Urine Few
--- NOTE | 2024-12-13 17:05 | ED.GENADULT ---
HPI - General Adult General Chief complaint: Back Injury/Pain Stated complaint: possible kidney infection Time Seen by Provider: 12/13/24 16:59 History of Present Illness HPI narrative: This 64-year-old female comes in reporting left flank pain that began this morning about 9 hours prior to arrival. She states that it feels like prior kidney stone that she had. She wonders if she might have a urinary tract infection. She does not report any nausea or vomiting. The pain seems to come and go. Related Data Home Medications ?Medication ?Instructions ?Recorded ?Confirmed No Known Home Medications 12/13/24 12/13/24 Allergies Allergy/AdvReac Type Severity Reaction Status Date / Time atorvastatin Allergy Intermediate severe Verified 12/13/24 14:56 muscle spasms celecoxib Allergy Intermediate generalized Verified 12/13/24 14:56 swelling hydrocodone Allergy Intermediate stomach Verified 12/13/24 14:56 pain latex Allergy Intermediate severe Verified 12/13/24 14:56 swelling/pain in urethra when latex catheter used morphine Allergy Intermediate redness Verified 12/13/24 14:56 along vein lisinopril Allergy Mild severe Verified 12/13/24 14:56 headaches ezetimibe Allergy Unknown Verified 12/13/24 14:56 rosuvastatin AdvReac Unknown Verified 12/13/24 14:56 Review of Systems Status of ROS: Reports: 10 or more systems reviewed and unremarkable except as noted in History and below Narrative: Constitutional: No fevers, no weight gain or loss. Eyes: No discharge. No vision changes. HENT: No congestion, no sore throat, no ear pain. Cardiovascular: No chest pain, no palpitations. Respiratory: No shortness of breath, no wheezes, no cough. Gastrointestinal: No abdominal pain, no vomiting, no diarrhea. Left flank pain. Genitourinary: No dysuria, no hematuria. Musculoskeletal: Normal range of motion. Skin: No rashes, no pruritis. Neurological: No dizziness, weakness, sensory change, speech change. Endo/Heme/Allergies: No bruising or bleeding. No polydipsia. Pysch: no suicidality, no anxiety, no insomnia. All other systems reviewed and are negative. [facility] Medical History Trigger thumb of left hand (07/17/21) ?M65.312 - Trigger thumb, left thumb (ICD-10) Symptomatic menopausal or female climacteric states (09/23/08) ?N95.1 - Menopausal and female climacteric states (ICD-10) Prednisone adverse reaction (03/11/15) ?T38.0X5A - Adverse effect of glucocorticoids and synthetic analogues, initial encounter (ICD-10) Pain in joint, site unspecified (05/05/06) ?M25.50 - Pain in unspecified joint (ICD-10) Moderate persistent asthma (07/12/22) ?J45.40 - Moderate persistent asthma, uncomplicated (ICD-10) Mixed hyperlipidemia (09/11/07) ?E78.2 - Mixed hyperlipidemia (ICD-10) Lichen simplex chronicus (01/02/10) ?L28.0 - Lichen simplex chronicus (ICD-10) Left carpal tunnel syndrome (07/17/21) ?G56.02 - Carpal tunnel syndrome, left upper limb (ICD-10) Kidney stone ?N20.0 - Calculus of kidney (ICD-10) Irritable bowel syndrome (05/05/06) ?K58.9 - Irritable bowel syndrome without diarrhea (ICD-10) Adjustment disorder with mixed anxiety and depressed mood (07/17/09) ?F43.23 - Adjustment disorder with mixed anxiety and depressed mood (ICD-10) Osteoarthritis of right knee ?M17.11 - Unilateral primary osteoarthritis, right knee (ICD-10) Stenosis of carotid artery (04/2018) ?I65.29 - Occlusion and stenosis of unspecified carotid artery (ICD-10) Osteopenia (2018) ?M85.80 - Other specified disorders of bone density and structure, unspecified site (ICD-10) Hypertension ?I10 - Essential (primary) hypertension (ICD-10) Dyslipidemia ?E78.5 - Hyperlipidemia, unspecified (ICD-10) Class 1 obesity ?E66.9 - Obesity, unspecified (ICD-10) Anxiety ?F41.9 - Anxiety disorder, unspecified (ICD-10) Vitamin D deficiency ?E55.9 - Vitamin D deficiency, unspecified (ICD-10) Vesicovaginal fistula (05/08/08) ?N82.0 - Vesicovaginal fistula (ICD-10) Statin intolerance ?Z78.9 - Other specified health status (ICD-10) Post-COVID chronic neurologic symptoms ?R29.90 - Unspecified symptoms and signs involving the nervous system (ICD-10) ?U09.9 - Post covid-19 condition, unspecified (ICD-10) Osteoarthritis of multiple joints ?M15.9 - Polyosteoarthritis, unspecified (ICD-10) Lumbar back pain ?M54.50 - Low back pain, unspecified (ICD-10) Migraine headache (05/05/06) ?G43.909 - Migraine, unspecified, not intractable, without status migrainosus (ICD-10) History of depression ?Z86.59 - Personal history of other mental and behavioral disorders (ICD-10) History of colonic polyps ?Z86.010 - Personal history of colonic polyps (ICD-10) Surgical History History of total right knee replacement (12/08/23) ?Z96.651 - Presence of right artificial knee joint (ICD-10) H/O arthroscopy of left knee (12/03/03) ?Z98.890 - Other specified postprocedural states (ICD-10) S/P right knee arthroscopy (11/12/05) ?Z98.890 - Other specified postprocedural states (ICD-10) History of total left knee replacement (06/13/09) ?Z96.652 - Presence of left artificial knee joint (ICD-10) History of total right hip arthroplasty (01/02/16) ?Z96.641 - Presence of right artificial hip joint (ICD-10) History of hip surgery (06/06/18) ?Z98.890 - Other specified postprocedural states (ICD-10) Status post left foot surgery (12/29/20) ?Z98.890 - Other specified postprocedural states (ICD-10) History of total left hip arthroplasty (05/19/21) ?Z96.642 - Presence of left artificial hip joint (ICD-10) Status post laser lithotripsy of ureteral calculus ?Z98.890 - Other specified postprocedural states (ICD-10) History of vein stripping ?Z98.890 - Other specified postprocedural states (ICD-10) History of hysterectomy with oophorectomy (05/12/08) History of colonoscopy (12/01/15) ?Z98.890 - Other specified postprocedural states (ICD-10) History of cholecystectomy ?Z90.49 - Acquired absence of other specified parts of digestive tract (ICD-10) History of section ?Z98.891 - History of uterine scar from previous surgery (ICD-10) History of bladder repair surgery (2008) ?Z98.890 - Other specified postprocedural states (ICD-10) Family History Father Brain cancer Paternal Grandmother Breast cancer Sister Drug abuse Other Osteoarthritis Social History Narrative: exercise daily- takes care of horses (5), rides, gardens etc, very active , [employer], 4 kids non-smoker: quit 03/2017, 28 pack years social drinker- 6/month Smoking Status: Never smoker Do you use any of these nicotine containing products: None Second hand tobacco smoke exposure: No How often do you have a drink containing alcohol: monthly or less How many standard drinks containing alcohol do you have on a typical day: 1 or 2 How often do you have six or more drinks on one occasion: Never AUDIT-C Alcohol total score: 1 Non-prescribed substance use: denies use Caffeine: Yes (2-3 pots/coffee) Are you using contraception or practicing any form of control: No service: No Exam Narrative: Exam Narrative: Constitutional: Well-developed, well-nourished, no acute distress. HEENT: Normocephalic, atraumatic. Neck: Normal range of motion. Nontender. Supple. Heart: Intact distal pulses. Lungs: No chest discomfort. No wheezes, rhonchi, or rales. Abdomen: Nontender. Pain is reproduced when percussing over the left flank region. Back: Normal range of motion. Extremities: Normal range of motion. No injury. Skin: Intact. No rash. Warm. No erythema or pallor. Neurologic: No altered sensation. No weakness. Alert and oriented. Psychiatric: No suicidality. No anxiety or depression. No insomnia. Nursing notes and vitals signs are reviewed. Const: Vital Signs, click to edit/add: Vital Signs - 24 hr 12/13/24 14:56 12/13/24 17:07 Temperature 98.2 F 98.1 F Pulse Rate [Right Pulse Oximeter] 77 80 Respiratory Rate 16 18 Blood Pressure [Ri ght Upper Arm] 150/82 H 169/94 H Pulse Oximetry 96 96 Oxygen Delivery Me thod Room Air Room Air Course Vital Signs Vital signs: Initial Vital Signs Temperature 98.2 F 12/13/24 14:56 Temperature Source Temporal Artery Scan 12/13/24 14:56 Pulse Rate 77 12/13/24 14:56 Pulse Rhythm Regular 12/13/24 14:56 Pulse Strength 3+ Normal 12/13/24 14:56 Respiratory Rate 16 12/13/24 14:56 Blood Pressure 150/82 H 12/13/24 14:56 Blood Pressure Mean 104 12/13/24 14:56 Blood Pressure Position Sitting 12/13/24 14:56 Pulse Oximetry 96 12/13/24 14:56 Oxygen Delivery Method Room Air 12/13/24 14:56 Vital Signs Temperature 98.2 F 12/13/24 14:56 Pulse Rate 77 12/13/24 14:56 Respiratory Rate 16 12/13/24 14:56 Blood Pressure 150/82 H 12/13/24 14:56 Pulse Oximetry 96 12/13/24 14:56 Oxygen Delivery Method Room Air 12/13/24 14:56 Temperature 98.1 F 12/13/24 17:07 Pulse Rate 80 12/13/24 17:07 Respiratory Rate 18 12/13/24 17:07 Blood Pressure 169/94 H 12/13/24 17:07 Pulse Oximetry 96 12/13/24 17:07 Oxygen Delivery Method Room Air 12/13/24 17:07 Medical Decision Making [facility] Narrative Medical decision making narrative: This patient comes in with left flank pain that began today. She is concerned that she might have an infection or kidney stone. Urinalysis is negative for infection and there is no microscopic hematuria. CT scan of the abdomen and pelvis is obtained and shows no obstructive uropathy. She does have 2 very small stones in the kidney. Her symptoms are more likely musculoskeletal or nerve mediated. She is okay to be discharged home. I did provide a prescription for Toradol from the [facility] machine. Lab Data Labs: Lab Results 12/13/24 Range/Units 15:08 Urine Color Yellow (Yellow) Urine Appearance Clear (Clear) Urine pH 6.0 (5.0-8.5) Ur Specific [place] 1.010 (1.000-1.030) Urine Protein Negative (Negative) Urine Glucose (UA) Negative (Negative) Urine Ketones Negative (Negative) Urine Blood Negative (Negative) Urine Nitrite Negative (Negative) Urine Bilirubin Negative (Negative) Urine Urobilinogen 0.2 (0.2-1.0) Ur Leukocyte Esterase 2+ A (Negative) Urine RBC 0-2 (0-2) Urine WBC 2-5 (0-5) Urine WBC Clumps Few A (None) Ur Squamous Epith Cells Few (None-Few) Urine Bacteria None (None) Imaging Data CT scan - abdomen: Radiologist's impression: Punctate nonobstructing left renal calculi. No hydronephrosis bilaterally. Discharge Plan Discharge Clinical Impression: Acute left flank pain Patient Disposition: Home, Self-Care Condition: Stable Additional Instructions: Take medication as needed and indicated. Follow up with MD return if worsening symptoms occur. Prescriptions: No Action No Known Home Medications Follow Up/Referrals: Leonie Orr DO [Primary Care Provider] - Stand Alone Forms: [employer] Info Instructions
[2024-12-13 17:07] VITALS: BP 169/94; PULSE 80; RESP 18; TEMP 36.7; O2SAT 96
== END 2024-12-13 18:59 | disposition home or self-care (01) ==
PROVIDERS: Emergency Provider Emergency Medicine Emergency Medical Services; PCP Family Medicine
DX: R10.9 Unspecified abdominal pain (principal)
CPT/HCPCS: 74176; 81001; 87086; 99284